=== PATIENT | male | born 1985 | race Caucasian/White ===

== ENCOUNTER 2018-05-28 02:39 | Emergency (ER) | payer OTHER, MEDICAID, SELFPAY ==
[2018-05-28 02:50] VITALS: BP 144/98; PULSE 88; RESP 16; TEMP 36.4; O2SAT 99; BMI 33.5
--- NOTE | 2018-05-28 02:55 | ED_ITS ---
HPI - Headache General Chief Complaint: Headache Stated Complaint: feels pressure when lays down, gets worse Time Seen by Provider: 05/28/18 02:56 Source: patient Mode of arrival: ambulatory Limitations: no limitations History of Present Illness HPI Narrative: The patient has been ill for about 2 days. He has right ear pressure. He has pressure in his head, increasingly lies down. He also does throat discomfort when he lies down. He is having no fever or chills. He has no chronic headache issues. He denies postnasal drainage, or sore throat. He has no dysphagia. He is not coughing, he has no dyspnea. The facial pressure is periorbital. He has no eye complaints such as vision changes or discharge. Related Data Previous Rx's Medication Instructions Recorded amoxicillin 500 mg PO TID #27 cap 05/28/18 Allergies Allergy/AdvReac Type Severity Reaction Status Date / Time ciprofloxacin [From CIPRO] Allergy Mild MUSCLE/JOINT Verified 12/21/17 08:55 PAIN &SWELLING NYQUIL Allergy Mild REDNESS ON Uncoded 10/31/17 12:53 HIS FACE 10/01/12 Review of Systems Review of Systems All systems reviewed & are unremarkable except as noted in HPI and below Constitutional Reports as per HPI, Denies chills, Denies fever(s), Denies lethargy and Denies weakness Eyes Denies change in vision, Denies eye discharge and Denies irritation ENT Ears, Nose, Mouth, and Throat: Reports as per HPI, Denies change in voice, Denies dysphagia, Denies vertigo, Denies dizziness, Reports otalgia, Reports facial pain, Denies nasal discharge, Denies neck pain and Denies sore throat Cardiovascular Denies chest pain, Denies lightheadedness, Denies dyspnea and Denies orthopnea Respiratory Denies cough, Denies dyspnea and Denies wheezing Gastrointestinal Gastrointestinal: Denies abdominal pain and Denies dysphagia Musculoskeletal Denies back pain and Denies neck pain Integumentary/Breasts Denies erythema and Denies rash Neurologic Denies confusion, Denies vertigo, Denies dizziness and Denies weakness Psychiatric Denies anxiety and Denies confusion Allergic/Immunologic Denies wheezing [facility] Medical History No significant medical problems (Acute) Surgical History Status post appendectomy Family History Mother Age: 57 Bipolar affective disorder, current episode mixed, current episode severity unspecified Grandfather Heart disease High cholesterol Cerebrovascular accident (CVA), unspecified mechanism Social History Smoking Status: Never smoker Exam Initial Vital Signs Initial Vital Signs: Vital Signs Temperature 97.6 F 05/28/18 02:50 Pulse Rate 88 05/28/18 02:50 Respiratory Rate 16 05/28/18 02:50 Blood Pressure 144/98 H 05/28/18 02:50 Pulse Oximetry 99 05/28/18 02:50 Const General: cooperative, healthy appearing, comfortable and well developed Nutritional Appearance: well nourished Orientation: alert, awake, oriented x3 and not confused HENMT Head: normocephalic and atraumatic Ears: external ears normal, TM normal on the right and TM normal on the left ( No erythema, retracted, clear fluid behind the TM.) Nose: external nose normal and No nasal discharge Face and sinus: face symmetric and tenderness on the left (ethmoid sinus) Mouth: oral mucosae normal and moist mucous membranes Teeth and gingiva: dentition normal Throat: posterior oropharynx normal Eyes General: appearance normal, both eyes and all related structures Eyelids: eyelids normal Conjunctivae: conjunctivae normal Sclera: sclerae normal Pupils: PERRL EOM: EOM intact bilaterally Neck Neck: normal visual inspection, trachea midline, No lymphadenopathy, No midline deformity and No JVD Lymphatic: No lymphedema Resp Effort & Inspection: normal respiratory effort, able to speak in complete sentences, no respiratory distress and no use of accessory muscles Auscultation: clear to auscultation bilaterally, no rales, no rhonchi and no wheezes Cardio Rate: regular rate Rhythm: regular rhythm Heart Sounds: no click, no gallops, no murmurs and no rubs Pulses: normal peripheral pulses Course Orders Ordered: ED Orders 05/28/18 03:16 EKG-12 Lead Stat Discontinued Medications Amoxicillin ( Trimox 250mg Prepack) 1 bottle MISC SEEINSTR ONE Stop: 05/28/18 03:12 Last Admin: 05/28/18 03:19 Dose: 1 bottle Vital Signs - 8 hr 05/28/18 02:50 Temperature 97.6 F Pulse Rate 88 Respiratory Rate 16 Blood Pressure 144/98 H Pulse Oximetry 99 MDM - Headache MDM Narrative Medical decision making narrative: The patient appears to have a sinus infection. He was started on amoxicillin, Mucinex was recommended prior to discharge. Discharge Plan Departure Patient Disposition: Home Clinical Impression: Acute ethmoidal sinusitis, unspecified, Acute non-recurrent ethmoidal sinusitis Discharge Date/Time: 05/28/18 03:27 Interventions: ED Discharge Assessment Last Done: 05/28/18 03:26 Instructions: DI for Sinusitis Activity Restrictions/Additional Instructions: Take the amoxicillin 3 times daily as prescribed. Mucinex is available over the counter, use the Mucinex as Directed per package instructions. I would recommend steamy showers to help clear her ears and sinuses. Return here if obviously worse. Prescriptions: New amoxicillin 500 mg capsule 500 mg PO TID Qty: 27 RF: 0
--- NOTE | 2018-05-28 03:02 | PC.NURSE ---
pt stated a couple days ago my head filled up with pressure and it gets way worse when I lay down. He does say he has some discomfort around his neck and into his chest, it feels like pressure. He reports no change in vision, balance, cognitive function.
[2018-05-28] MEDS: AMOXICILLIN 250 MG PREPACK 1 BOTTLE MISC (03:19)
== END 2018-05-28 03:27 | disposition home or self-care (01) ==
PROVIDERS: Emergency Provider Emergency Medicine; Family Provider Family Medicine; PCP Family Medicine
DX: J01.20 Acute ethmoidal sinusitis, unspecified (principal)
CPT/HCPCS: 93005; 99282; 99283

== ENCOUNTER 2018-07-03 06:32 | Emergency (ER) | payer OTHER, MEDICAID, SELFPAY ==
[2018-07-03 06:55] VITALS: BP 142/72; PULSE 56; RESP 18; TEMP 36.6; O2SAT 100; BMI 34.4
--- NOTE | 2018-07-03 07:54 | ED_ITS ---
HPI - Abdominal Pain General Chief Complaint: Abdominal Pain Stated Complaint: left side pressure some pain cant lay on side Time Seen by Provider: 07/03/18 07:09 Source: patient Mode of arrival: ambulatory Limitations: no limitations History of Present Illness HPI narrative: Patient is a 33-year-old male who presents with left lower quadrant pain ongoing for the last 3 weeks. He says progressively getting worse he keeps him from sleeping at night. He has regular bowel movements nonbloody passing gas no vomiting diarrhea or fever. He did have an episode of a bloody diarrhea number of years ago he had a colonoscopy nothing was found given had any problems since. Mom states that he was quite a heavy drinker until 2 months ago when he. He is trying to get healthy he has not had a drink for 2 months. However this abdominal discomfort is progressively getting worse. MD complaint: abdominal pain Related Data Previous Rx's Medication Instructions Recorded amoxicillin 500 mg PO TID #27 cap 05/28/18 amoxicillin-pot clavulanate 1 tab PO BID #14 tab 07/03/18 Allergies Allergy/AdvReac Type Severity Reaction Status Date / Time ciprofloxacin [From CIPRO] Allergy Mild MUSCLE/JOINT Verified 12/21/17 08:55 PAIN &SWELLING NYQUIL Allergy Mild REDNESS ON Uncoded 10/31/17 12:53 HIS FACE 10/01/12 Review of Systems Review of Systems All systems reviewed & are unremarkable except as noted in HPI and below Constitutional Denies chills, Denies fever(s), Denies lethargy and Denies weakness Cardiovascular Denies chest pain, Denies irregular heart rhythm, Denies lightheadedness, Denies palpitations and Denies orthopnea Gastrointestinal Gastrointestinal: Denies abdominal pain, Denies change in bowel habits, Denies diarrhea, Denies nausea and Denies vomiting Genitourinary Denies hematuria, Denies flank pain, Denies urinary incontinence and Denies urinary urgency Musculoskeletal Denies back pain, Denies muscle weakness, Denies numbness and Denies tingling Integumentary/Breasts Denies pruritus, Denies erythema, Denies rash and Denies wounds Neurologic Denies numbness, Denies tingling and Denies weakness Endocrine Denies palpitations [facility] Medical History No significant medical problems (Acute) Surgical History Status post appendectomy Family History Mother Age: 57 Bipolar affective disorder, current episode mixed, current episode severity unspecified Grandfather Heart disease High cholesterol Cerebrovascular accident (CVA), unspecified mechanism Social History Smoking Status: Never smoker alcohol intake: former Exam Initial Vital Signs Initial Vital Signs: Vital Signs Temperature 98 F 07/03/18 06:55 Pulse Rate 56 L 07/03/18 06:55 Respiratory Rate 18 07/03/18 06:55 Blood Pressure 142/72 H 07/03/18 06:55 Pulse Oximetry 100 07/03/18 06:55 GENERAL: Well-appearing, well-nourished and in no acute distress. HEENT: Head atraumatic,EOMI, pupils reactive, CARDIOVASCULAR: Regular rate and rhythm without murmurs, rubs or gallops. RESPIRATORY: Breath sounds equal bilaterally, no wheezes rales or rhonchi. ABDOMEN: Soft, nontender. Normoactive bowel sounds all 4 quadrants. No guarding or rebound. EXTREMITIES: Normal range of motion, no clubbing or edema. Neurovascularly intact NEUROLOGICAL: Alert and oriented x4.Normal gait and speech. Cranial nerves II through XII grossly intact. SKIN: Warm, dry, no laceration, no petechiae, no rashes or lesions. Course Orders Ordered: ED Orders 07/03/18 08:08 Complete Blood Count AUTO DIFF Stat Comprehensive Metabolic Panel Stat Lipase Stat 07/03/18 08:28 CT abdomen pelvis w con Stat Vital Signs - 8 hr 07/03/18 08:35 07/03/18 09:34 Pulse Rate 54 L 56 L Respiratory Rate 16 18 Blood Pressure 111/59 L Blood Pressure [Right Arm] 115/66 Pulse Oximetry 99 96 MDM - Abdominal Pain Lab Data Attestation: I reviewed the patient's lab results. Result diagrams: 07/03/18 08:08 07/03/18 08:08 Lab Results 07/03/18 07/03/18 Range/Units 08:08 08:08 WBC 5.0 (4.5-11.0) X10^3/uL RBC 5.03 (4.5-5.9) X10^6/uL Hgb 15.6 (13.5-17.5) g/dL Hct 45.3 (41-53) % MCV 90.1 (80-100) fL MCH 31.0 (26-34) PG MCHC 34.4 (30-36) % RDW 13.0 (11.6-14.8) % Plt Count 181 (150-400) X10^3/uL Neut % (Auto) 51.0 (50-75) % Lymph % (Auto) 33.7 (25-40) % Charlton % (Auto) 10.1 (3-14) % Eos % (Auto) 3.9 (2-4) % Baso % (Auto) 1.3 (0-2) % Neut # (Auto) 2600 L (6337-0877) /uL Sodium 144 (137-145) mmol/L Potassium 4.2 (3.4-5.1) mmol/L Chloride 105 (98-107) mmol/L Carbon Dioxide 27 (22-32) mmol/L BUN 13 (9-20) mg/dL Creatinine 1.00 (0.66-1.25) mg/dL Estimated GFR > 60.0 (>60) mL/min BUN/Creatinine Ratio 13.0 (6-22) Glucose 95 (70-100) mg/dL Calcium 9.7 (8.4-10.2) mg/dL Total Bilirubin 0.6 (0.2-1.3) mg/dL AST 46 (17-59) IU/L ALT 100 H (21-72) IU/L Alkaline Phosphatase 68 (38-126) U/L Total Protein 7.0 (6.3-8.2) g/dL Albumin 4.7 (3.5-5.0) g/dL Globulin 2.3 (1.7-4.1) g/dL Albumin/Globulin Ratio 2.0 (1.0-2.8) Lipase 76 (23-300) U/L Imaging Data CT scan - abdomen: Radiologist's impression: PROCEDURE: CT ABDOMEN PELVIS W CON INDICATIONS: left lower quad pain on gonig 3 weeks getting worse TECHNIQUE: After the administration of intravenous contrast, 5 mm thick sections acquired from the diaphragm to the symphysis. 5 mm coronal and sagittal reformats were acquired. For radiation dose reduction, the following was used: automated exposure control, adjustment of mA and/or kV according to patient size. COMPARISON: [facility], CT, ABDOMEN/PELVIS WITH CONTRAST, 10/01/2012, 11: 38. FINDINGS: Image quality: Excellent. ABDOMEN: Lung bases: Lung bases are clear. Heart size is normal. Solid organs: Liver is normal in size and enhancement. Mild hepatic steatosis is seen. Gallbladder is within normal limits. Biliary system is non dilated. Pancreas enhances normally. Spleen is normal in size and enhancement. No adrenal nodules. Kidneys demonstrate normal size and enhancement, without hydronephrosis. 7 mm left renal cortical cyst is seen. Peritoneum and bowel: There is a small hiatal hernia. No evidence of bowel obstruction. Mild wall thickening involving transverse colon and descending colon is seen with no significant pericolonic fat stranding. Mild sigmoid diverticulosis is seen, no CT evidence of acute diverticulitis. No free fluid or free air. Patient is status post appendectomy. Nodes and vessels: No retroperitoneal or mesenteric adenopathy by size criteria. Aorta and inferior vena cava are normal in size. Miscellaneous: No ventral hernias. PELVIS: Genitourinary: Bladder wall thickness is normal. Miscellaneous: No inguinal hernias or adenopathy. Bones: No suspicious bony lesions. No vertebral body compression fractures. IMPRESSION: 1. Questionable wall thickening involving transverse colon and descending colon , which may be due to under distention. Low-grade infectious inflammatory colitis cannot excluded. Very mild sigmoid diverticulosis with no CT evidence of acute diverticulitis. No free fluid or free air. No bowel obstruction. Small hiatal hernia. 2. Mild hepatic steatosis. Dictated by: Kavon Swift M.D. on 07/03/2018 at 8:44 MDM Narrative Medical decision making narrative: Patient does have some mild low-grade inflammation. Pain seems to be progressively getting worse. At this time I think that it is worth a course of antibiotics. He has had reaction to ciprofloxacin including muscle aches and tendon pain. He will be prescribed Augmentin. He has no point his PCP in July. He may require repeat colonoscopy, or GI consult if pain has not improved. Discharge Plan Departure Patient Disposition: Home Clinical Impression: Abdominal pain Discharge Date/Time: 07/03/18 09:33 Interventions: ED Discharge Assessment Last Done: 07/03/18 09:34 Instructions: DI for Crohn's Disease, DI for Ulcerative Colitis, DI for Colitis Activity Restrictions/Additional Instructions: *You have been diagnosed with colitis *What to do: Try course of antibiotics. If this does not help you may require repeat colonoscopy please discuss this with her PCP in July *Continue to take medications as directed: [facility] [place] Augmentin 875 mg twice a day for 7 days *Follow up with your primary care provider in 2-3 days *Return to ER if you should have fever, worsening pain or any new, worsening or concerning symptoms Prescriptions: New amoxicillin-pot clavulanate 875-125 mg tablet 1 tab PO BID Qty: 14 RF: 0 No Action amoxicillin 500 mg capsule 500 mg PO TID Qty: 27 RF: 0 Referrals: Grady Arora MD [Primary Care Provider] -
[2018-07-03 08:19] LABS: Add Manual Diff / Slide Review NO; Basophils Percent Auto 1.3 % (0-2); Eosinophils Percent Auto 3.9 % (2-4); Hematocrit 45.3 % (41-53); Hemoglobin 15.6 g/dL (13.5-17.5); Lymphocytes Percent Auto 33.7 % (25-40); Mean Corpuscular HGB Conc 34.4 % (30-36); Mean Corpuscular Volume 90.1 fL (80-100); Monocytes Percent Auto 10.1 % (3-14); Neutrophils Absolute Auto 2600 /uL (3000-5900); Platelet Count 181 X10^3/uL (150-400); Red Blood Cell Count 5.03 X10^6/uL (4.5-5.9)
[2018-07-03 08:25] LABS: Alanine Aminotransferase 100 IU/L (21-72); Albumin 4.7 g/dL (3.5-5.0); Alkaline Phosphatase 68 U/L (38-126); Aspartate Aminotransferase 46 IU/L (17-59); Bilirubin Total 0.6 mg/dL (0.2-1.3); Blood Urea Nitrogen 13 mg/dL (9-20); Calcium 9.7 mg/dL (8.4-10.2); Carbon Dioxide 27 mmol/L (22-32); Chloride 105 mmol/L (98-107); Estimated Glomerular Filt Rate > 60.0 mL/min (>60); Globulin 2.3 g/dL (1.7-4.1); Glucose 95 mg/dL (70-100); HEMOLYSIS < 15 (0-50); Lipase 76 U/L (23-300); Potassium 4.2 mmol/L (3.4-5.1); Sodium 144 mmol/L (137-145)
--- NOTE | 2018-07-03 08:28 | DI.CT.S_ITS ---
PROCEDURE: CT ABDOMEN PELVIS W CON INDICATIONS: left lower quad pain on gonig 3 weeks getting worse TECHNIQUE: After the administration of intravenous contrast, 5 mm thick sections acquired from the diaphragm to the symphysis. 5 mm coronal and sagittal reformats were acquired. For radiation dose reduction, the following was used: automated exposure control, adjustment of mA and/or kV according to patient size. COMPARISON: [facility], CT, ABDOMEN/PELVIS WITH CONTRAST, 10/01/2012, 11:38. FINDINGS: Image quality: Excellent. ABDOMEN: Lung bases: Lung bases are clear. Heart size is normal. Solid organs: Liver is normal in size and enhancement. Mild hepatic steatosis is seen. Gallbladder is within normal limits. Biliary system is non dilated. Pancreas enhances normally. Spleen is normal in size and enhancement. No adrenal nodules. Kidneys demonstrate normal size and enhancement, without hydronephrosis. 7 mm left renal cortical cyst is seen. Peritoneum and bowel: There is a small hiatal hernia. No evidence of bowel obstruction. Mild wall thickening involving transverse colon and descending colon is seen with no significant pericolonic fat stranding. Mild sigmoid diverticulosis is seen, no CT evidence of acute diverticulitis. No free fluid or free air. Patient is status post appendectomy. Nodes and vessels: No retroperitoneal or mesenteric adenopathy by size criteria. Aorta and inferior vena cava are normal in size. Miscellaneous: No ventral hernias. PELVIS: Genitourinary: Bladder wall thickness is normal. Miscellaneous: No inguinal hernias or adenopathy. Bones: No suspicious bony lesions. No vertebral body compression fractures. IMPRESSION: 1. Questionable wall thickening involving transverse colon and descending colon, which may be due to under distention. Low-grade infectious inflammatory colitis cannot excluded. Very mild sigmoid diverticulosis with no CT evidence of acute diverticulitis. No free fluid or free air. No bowel obstruction. Small hiatal hernia. 2. Mild hepatic steatosis. Dictated by: Kavon Siwft M.D. on 07/03/2018 at 8:44 Approved by: Kavon Swift M.D. on 07/03/2018 at 8:48
[2018-07-03 08:35] VITALS: BP 115/66; PULSE 54; RESP 16; O2SAT 99
[2018-07-03 09:34] VITALS: BP 111/59; PULSE 56; RESP 18; O2SAT 96
== END 2018-07-03 09:33 | disposition home or self-care (01) ==
PROVIDERS: Emergency Provider Emergency Medicine; Family Provider Family Medicine; PCP Family Medicine
DX: R10.9 Unspecified abdominal pain (principal)
CPT/HCPCS: 36591; 74177; 80053; 83690; 85025; 99283; 99285; Q9967

== ENCOUNTER → 2018-07-19 11:10 | Outpatient (CLI) | payer OTHER, MEDICAID, SELFPAY ==
[2018-07-19 12:37] LABS: Add Manual Diff / Slide Review NO; Basophils Percent Auto 0.3 % (0-2); Eosinophils Percent Auto 3.4 % (2-4); Hemoglobin 15.5 g/dL (13.5-17.5); Lymphocytes Percent Auto 25.9 % (25-40); Mean Corpuscular HGB Conc 34.5 % (30-36); Mean Corpuscular Volume 89.7 fL (80-100); Monocytes Percent Auto 8.6 % (3-14); Neutrophils Absolute Auto 3500 /uL (1500-7000); Neutrophils Percent Auto 61.8 % (50-75); Platelet Count 216 X10^3/uL (150-400); Red Blood Cell Count 5.02 X10^6/uL (4.5-5.9); White Blood Cell Count 5.7 X10^3/uL (4.5-11.0)
[2018-07-19 13:16] LABS: Alanine Aminotransferase 74 IU/L (21-72); Albumin 4.6 g/dL (3.5-5.0); Alkaline Phosphatase 68 U/L (38-126); Aspartate Aminotransferase 46 IU/L (17-59); Bilirubin Total 0.9 mg/dL (0.2-1.3); Blood Urea Nitrogen 12 mg/dL (9-20); Calcium 10.2 mg/dL (8.4-10.2); Carbon Dioxide 27 mmol/L (22-32); Chloride 103 mmol/L (98-107); Cholesterol 208 mg/dL (140-199); Estimated Glomerular Filt Rate > 60.0 mL/min (>60); Globulin 2.3 g/dL (1.7-4.1); Glucose 89 mg/dL (70-100); HDL Cholesterol 35 mg/dL (40-60); HEMOLYSIS < 15 (0-50); LDL Cholesterol Calculated 135 mg/dL (<100); Sodium 143 mmol/L (137-145); Total Protein 6.9 g/dL (6.3-8.2); Triglycerides 190 mg/dL (35-150)
[2018-07-19 13:18] LABS: Potassium 5.4 mmol/L (3.4-5.1)
== END ==
PROVIDERS: PCP Family Medicine; Visit Provider Family Medicine
DX: Z13.0 Encounter for screening for diseases of the blood and blood-forming organs and certain disorders involving the immune mechanism (principal); Z13.220 Encounter for screening for lipoid disorders; Z13.29 Encounter for screening for other suspected endocrine disorder
CPT/HCPCS: 36415; 80053; 80061; 85025

== ENCOUNTER → 2018-07-30 10:41 | Outpatient (CLI) | payer OTHER, MEDICAID, SELFPAY ==
[2018-07-30 12:40] LABS: Prostate Specific Antigen 0.582 ng/mL (0.10-4.00); Thyroid Stimulating Hormone 0.93 uIU/mL (0.47-4.68)
== END ==
PROVIDERS: PCP Family Medicine; Visit Provider Family Medicine
DX: N41.9 Inflammatory disease of prostate, unspecified (principal); Z83.49 Family history of other endocrine, nutritional and metabolic diseases
CPT/HCPCS: 36415; 84153; 84443

== ENCOUNTER → 2018-08-16 07:14 | Outpatient (CLI) | payer OTHER, MEDICAID, SELFPAY ==
--- NOTE | 2018-08-16 07:16 | DI.US.S_ITS ---
PROCEDURE: US RENAL COMPLETE INDICATIONS: INCREASED URINARY FREQUENCY TECHNIQUE: Real-time scanning was performed of the kidneys and bladder, with image documentation. COMPARISON: [facility], CT, CT ABDOMEN PELVIS W CON, 07/03/2018, 8:10. FINDINGS: Kidneys: Kidneys are normal in size. Right kidney measures 10.1 cm long; left kidney measures 10.6 cm long. Right renal cortical thickness is 1.7 cm; left renal cortical thickness is 1.4 cm. Renal cortical echotexture is normal. No hydronephrosis or nephrolithiasis. No suspicious solid mass lesions. Bladder: Pre-void bladder volume is 63 mL. Post-void residual is 0 mL. Pre-void images demonstrate no intraluminal masses or stones. On pre-void images, neither ureteral jets are noted with color Doppler interrogation. (Of note, ureteral jets may not be detectable in up to 25% of cases due to insufficient differences in specific gravity between ureteral and bladder urine). Miscellaneous: No free pelvic fluid. IMPRESSION: Normal sonographic appearance of the kidneys bilaterally. Dictated by: Cb BALL Interpreted: Eleazar Montalvo MD on 08/16/2018 at 11:17 Approved by: Eleazar Montalvo M.D. on 08/16/2018 at 11:57
== END ==
PROVIDERS: Family Provider Family Medicine; PCP Family Medicine; Visit Provider Family Medicine
DX: R35.0 Frequency of micturition (principal)
CPT/HCPCS: 76770

== ENCOUNTER → 2018-10-02 13:56 | Outpatient (CLI) | payer OTHER, MEDICAID, SELFPAY | PROVIDERS: Family Provider Family Medicine; PCP Family Medicine; Visit Provider Physician Assistant | DX: J02.9 Acute pharyngitis, unspecified (principal) | CPT/HCPCS: 87070; 87077; 87147 ==

== ENCOUNTER → 2018-11-12 08:50 | Outpatient (CLI) | payer OTHER, MEDICAID, SELFPAY ==
[2018-11-12 12:04] LABS: Urine N gonorrhoeae NOT DETECTED
[2018-11-12 12:16] LABS: Urine Chlamydia NOT DETECTED
[2018-11-13 22:49] LABS: RPR Screen Nonreactive (Nonreactive)
[2018-11-14 12:49] LABS: HSV 1 IgM Screen Negative (Negative); HSV 2 IgM Screen Negative (Negative)
[2018-11-14 16:03] LABS: Hepatitis A Antibody IgM NONREACTIVE (NONREACTIVE); Hepatitis Acute Panel Interp 0.01; Hepatitis B Core Antibody IgM NONREACTIVE (NONREACTIVE); Hepatitis B Surface Antigen NONREACTIVE (NONREACTIVE); Hepatitis C Antibody NONREACTIVE
[2018-11-14 16:36] LABS: HIV Ag/Ab, 4th Gen Nonreactive (Nonreactive)
== END ==
PROVIDERS: PCP Family Medicine; Visit Provider Registered Nurse
DX: Z11.3 Encounter for screening for infections with a predominantly sexual mode of transmission (principal)
CPT/HCPCS: 36415; 80074; 86592; 86694; 86703; 87491; 87591

== ENCOUNTER → 2019-05-10 09:03 | Outpatient (CLI) | payer OTHER, MEDICAID, SELFPAY ==
--- NOTE | 2019-05-10 09:07 | DI.RAD.S_ITS ---
PROCEDURE: XR FOOT RT MIN 3V INDICATIONS: R foot/5th metatarsal pain with weight TECHNIQUE: 3 views of the foot were acquired. COMPARISON: None. FINDINGS: Bones: No fractures or dislocations. No suspicious bony lesions. Soft tissues: No tibiotalar joint effusion. Achilles tendon appears normal. IMPRESSION: No acute osseous abnormality. Dictated by: Abdullahi Morris M.D. on 05/10/2019 at 9:36 Approved by: Abdullahi Morris M.D. on 05/10/2019 at 9:37
== END ==
PROVIDERS: PCP Family Medicine; Visit Provider Family Medicine
DX: M79.671 Pain in right foot (principal)
CPT/HCPCS: 73630

== ENCOUNTER 2019-05-12 00:59 | Emergency (ER) | payer OTHER, MEDICAID, SELFPAY ==
[2019-05-12 01:09] VITALS: BP 145/97; PULSE 118; RESP 20; TEMP 36.5; O2SAT 95; BMI 31.1
--- NOTE | 2019-05-12 01:12 | DI.RAD.S_ITS ---
PROCEDURE: XR CHEST 1V INDICATIONS: confusion, overdose responded to narcan. TECHNIQUE: One view of the chest was acquired. COMPARISON: [facility], , CHEST 1 VIEW, 10/07/2016, 13:18. FINDINGS: Surgical changes and devices: None. Lungs and pleura: Lungs are clear. No pleural effusions or pneumothorax. Mediastinum: Mediastinal contours appear normal. Heart size is normal. Bones and chest wall: No suspicious bony lesions. Overlying soft tissues appear unremarkable. IMPRESSION: No acute disease. Dictated by: Luis Longoria M.D. on 05/12/2019 at 8:04 Approved by: Luis Longoria M.D. on 05/12/2019 at 8:05
--- NOTE | 2019-05-12 01:12 | DI.CT.S_ITS ---
PROCEDURE: CT HEAD/BRAIN WO CON INDICATIONS: confusion, overdose responded to narcan. TECHNIQUE: Noncontrast 4.5 mm thick angled axial sections acquired from the foramen magnum to the vertex, with coronal and sagittal reformats. For radiation dose reduction, the following was used: automated exposure control, adjustment of mA and/or kV according to patient size. COMPARISON: None. FINDINGS: Image quality: Excellent. CSF spaces: Basal cisterns are patent. No extra-axial fluid collections. Ventricles are normal in size and shape. Brain: No midline shift. No intracranial masses or hemorrhage. Morales-white matter interface is normal. Skull and face: Calvarium and visualized facial bones are intact, without suspicious lesions. Sinuses: Visualized sinuses and mastoids are clear. IMPRESSION: CT head without acute intracranial abnormalities. No significant discrepancy with the metal sash setter radiology preliminary report. Dictated by: Luis Longoria M.D. on 05/12/2019 at 7:05 Approved by: Luis Longoria M.D. on 05/12/2019 at 7:07
--- NOTE | 2019-05-12 01:13 | ED_ITS ---
HPI - Overdose General Chief Complaint: Toxicology Problem Stated Complaint: CPR in prog, narcan given Time Seen by Provider: 05/12/19 01:11 Source: patient, EMS and old records reviewed Mode of arrival: EMS Limitations: no limitations History of Present Illness HPI Narrative: This is a 33-year-old male who comes to the emergency department with complaint of overdose. Patient states he does not recall anything about the events. EMS was contacted for an unresponsive patient. When they arrived patient was breathing but minimally, CPR had been started by his significant other although he did have a pulse. Patient received Narcan 2 mg IM and shortly return to normal mentation although he himself does not recall taking any drugs recently, denies any narcotic, prescription or IV drug use. He states he drinks alcohol but is unsure if he had any alcohol recently. Patient states he does take some kind of medication for mental health but cannot recall the name. He denies any surgery. He denies any symptoms currently other than ringing in his ears and states he feels 'fuzzy'. He denies any ingestion that he is aware of but he also states he does not recollect events from before this earlier today. He denies any other symptoms currently. EMS states that they did note a bottle of clonazepam close by but it was not open and they do not know belongs to the patient or another individual. They were contacted by patient's girlfriend. They did not appreciate any other paraphernalia or other medications near by when they were in the room. Patient was on the floor. UDS was postive for amphetamines which could be 2nd patient's Adderall and etoh. Related Data Home Medications Medication Instructions Recorded Confirmed multivitamin 1 tab PO DAILY 10/02/18 01/07/19 Previous Rx's Medication Instructions Recorded paroxetine HCl 20 mg tablet 20 mg PO DAILY #90 tab 07/30/18 benzonatate 200 mg capsule 200 mg PO TID PRN #20 cap 12/09/18 clotrimazole 1 % topical cream 1 applictn TOP BID 56 Days #30 gram 12/25/18 clobetasol 0.05 % topical ointment 1 applictn TOP BID #30 gram 01/07/19 dextroamphetamine-amphetamine 20 1 tab PO BID #60 tab 05/07/19 mg tablet Allergies Allergy/AdvReac Type Severity Reaction Status Date / Time ciprofloxacin [From CIPRO] Allergy Mild MUSCLE/JOINT Verified 05/10/19 08:44 PAIN &SWELLING Review of Systems Review of Systems ROS Unobtainable: All systems reviewed & are unremarkable except as noted in HPI and below Patient History Medical History Anxiety (Chronic) Chicken pox (Resolved ~1991) Depression (Chronic ~1997) No significant medical problems (Acute) Surgical History Anesthesia (Resolved) Status post appendectomy (~2011) Family History Mother Age: 58 Bipolar affective disorder, current episode mixed, current episode severity unspecified Grandfather Heart disease High cholesterol Cerebrovascular accident (CVA), unspecified mechanism Grandmother No problems noted. Social History (Updated 07/03/18 @ 07:54 by Yareli Brasher DO) Smoking Status: Never smoker alcohol intake: former substance use type: does not use Family History Mother Age: 58 Bipolar affective disorder, current episode mixed, current episode severity unspecified Grandfather Heart disease High cholesterol Cerebrovascular accident (CVA), unspecified mechanism Grandmother No problems noted. Social History Smoking Status: Never smoker alcohol intake: former substance use type: does not use alcohol intake frequency: a few times a week Alcohol type: beer Substance Use Type: marijuana Exam Narrative Exam Narrative: GEN: well nourished, well appearing male, alert and oriented x 2, patient appears to be in mild distress. HEENT: Atraumatic, pupils are equal round reactive to light, extraocular movements are intact, nares are clear, TMs are clear with no fluid, there is no conjunctival pallor. Throat is clear without any exudates, erythema, tonsillar enlargement or uvular deviation HEART: Regular rate and rhythm without murmur, clicks, rubs. Pulses are equal in upper and lower extremities LUNGS:Lungs clear to auscultation, no wheezes, rales, crackles, chest moves symmetrically ABD:bowel sounds normal, soft, non-tender, no guarding, rebound, rigidity, no masses noted, no hepatosplenomegaly :No CVA tenderness MSCL: Non-tender, no muscle atrophy, muscles strength 5/5 upper and lower extremities, full range of motion NEURO:CN 2-12 intact, sensation normal. SKIN: Rashes, petechiae or other skin changes appreciated. Initial Vital Signs Initial Vital Signs: Vital Signs Temperature 97.7 F 05/12/19 01:09 Pulse Rate 118 H 05/12/19 01:09 Respiratory Rate 20 05/12/19 01:09 Blood Pressure 145/97 H 05/12/19 01:09 Pulse Oximetry 95 05/12/19 01:09 Course Orders Ordered: ED Orders 05/12/19 00:50 Acetaminophen Stat Complete Blood Count AUTO DIFF Stat Comprehensive Metabolic Panel Stat Ethanol (ETOH) Stat Hepatic (Liver) Panel Stat Lipase Stat Osmolality, Serum Stat Partial Thromboplastin Time Stat Prothrombin Time INR Stat Salicylate Stat Troponin & CK Cardiac Panel Stat 05/12/19 01:12 CT head/brain wo con Stat XR chest 1V Stat 05/12/19 01:24 Lactate (Lactic Acid) Stat 05/12/19 02:01 Urine Drug Screen, Rapid Stat 05/12/19 02:38 EKG-12 Lead Stat Discontinued Medications Sodium Chloride (Normal Saline 0.9%) 1,000 mls @ 1,000 mls/hr IV BOLUS ONE Stop: 05/12/19 02:10 Last Admin: 05/12/19 02:53 Dose: 1,000 mls/hr Documented by: YORDY Vital Signs Vital signs: Vital Signs - 8 hr 05/12/19 01:09 05/12/19 02:23 05/12/19 03:00 Temperature 97.7 F Pulse Rate 118 H 114 H 105 H Respiratory Rate 20 15 Blood Pressure 145/97 H Blood Pressure [Left Arm] 131/83 136/85 Pulse Oximetry 95 94 94 05/12/19 03:30 05/12/19 04:00 Temperature Pulse Rate 88 82 Respiratory Rate Blood Pressure Blood Pressure [Left Arm] 122/75 127/76 Pulse Oximetry 93 92 MDM - Overdose Lab Data Attestation: I reviewed the patient's lab results. Result diagrams: 05/12/19 00:50 05/12/19 00:50 Labs: Lab Results 05/12/19 05/12/19 05/12/19 Range/Units 00:50 00:50 00:50 WBC 13.0 H (4.5-11.0) X10^3/uL RBC 4.55 (4.5-5.9) X10^6/uL Hgb 14.7 (13.5-17.5) g/dL Hct 44.3 (41-53) % MCV 97.3 (80-100) fL MCH 32.3 (26-34) PG MCHC 33.2 (30-36) % RDW 13.3 (11.6-14.8) % Plt Count 306 (150-400) X10^3/uL Neut % (Auto) 38.6 L (50-75) % Lymph % (Auto) 50.3 H (25-40) % [place] % (Auto) 9.0 (3-14) % Eos % (Auto) 1.6 L (2-4) % Baso % (Auto) 0.5 (0-2) % Neut # (Auto) 5000 (3010-9621) /uL Lymph # (Auto) 6500 H (1147-3477) /uL [place] # (Auto) 1200 H (0-900) /uL Eos # (Auto) 200 (0-450) /uL Baso # (Auto) 100 (0-100) /uL PT 10.7 (10.1-12.7) SECONDS INR 0.9 (0.9-1.3) APTT 28 (26.4-36.2) SECONDS Sodium 142 (137-145) mmol/L Potassium 3.5 (3.4-5.1) mmol/L Chloride 102 (98-107) mmol/L Carbon Dioxide 21 L (22-32) mmol/L BUN 10 (9-20) mg/dL Creatinine 1.10 (0.66-1.25) mg/dL Estimated GFR > 60.0 (>60) mL/min BUN/Creatinine Ratio 9.1 (6-22) Glucose 335 H (70-100) mg/dL Lactate (0.7-2.1) mmol/L Calcium 9.1 (8.4-10.2) mg/dL Total Bilirubin 0.4 (0.2-1.3) mg/dL Conjugated Bilirubin 0.0 (0.0-0.3) md/dL Unconjugated Bilirubin 0.2 (0.0-1.1) mg/dL AST 62 H (17-59) IU/L ALT 64 (21-72) IU/L Alkaline Phosphatase 73 (38-126) U/L Total Creatine Kinase (55-170) U/L CK-MB (CK-2) (<2.37) ng/mL CK-MB (CK-2) Rel Index (1.5-5.0) % Troponin I (0.01-0.034) ng/mL Total Protein 7.6 (6.3-8.2) g/dL Albumin 5.0 (3.5-5.0) g/dL Globulin 2.6 (1.7-4.1) g/dL Albumin/Globulin Ratio 1.9 (1.0-2.8) Lipase 204 (23-300) U/L Salicylates < 1.0 (<20) mg/dL U Morph 300 ng/mL cutoff (Negative) Ur Oxycodone Screen (Negative) Urine Methadone Screen (Negative) Acetaminophen < 10 L (10-30) ug/mL Ur Barbiturates Screen (Negative) U Tricyclic Antidepress (Negative) Ur Phencyclidine Scrn (Negative) Ur Amphetamines Screen (Negative) U Methamphetamines Scrn (Negative) Ur MDMA Scrn (Ecstasy) (Negative) U Benzodiazepines Scrn (Negative) Urine Cocaine Screen (Negative) U Marijuana (THC) Screen (Negative) Ethyl Alcohol 144 H ( - 10) mg/dL 05/12/19 05/12/19 05/12/19 Range/Units 00:50 01:24 02:01 WBC (4.5-11.0) X10^3/uL RBC (4.5-5.9) X10^6/uL Hgb (13.5-17.5) g/dL Hct (41-53) % MCV (80-100) fL MCH (26-34) PG MCHC (30-36) % RDW (11.6-14.8) % Plt Count (150-400) X10^3/uL Neut % (Auto) (50-75) % Lymph % (Auto) (25-40) % [place] % (Auto) (3-14) % Eos % (Auto) (2-4) % Baso % (Auto) (0-2) % Neut # (Auto) (5766-1986) /uL Lymph # (Auto) (2176-1166) /uL [place] # (Auto) (0-900) /uL Eos # (Auto) (0-450) /uL Baso # (Auto) (0-100) /uL PT (10.1-12.7) SECONDS INR (0.9-1.3) APTT (26.4-36.2) SECONDS Sodium (137-145) mmol/L Potassium (3.4-5.1) mmol/L Chloride (98-107) mmol/L Carbon Dioxide (22-32) mmol/L BUN (9-20) mg/dL Creatinine (0.66-1.25) mg/dL Estimated GFR (>60) mL/min BUN/Creatinine Ratio (6-22) Glucose (70-100) mg/dL Lactate 3.5 H (0.7-2.1) mmol/L Calcium (8.4-10.2) mg/dL Total Bilirubin (0.2-1.3) mg/dL Conjugated Bilirubin (0.0-0.3) md/dL Unconjugated Bilirubin (0.0-1.1) mg/dL AST (17-59) IU/L ALT (21-72) IU/L Alkaline Phosphatase (38-126) U/L Total Creatine Kinase 249 H (55-170) U/L CK-MB (CK-2) 2.33 (<2.37) ng/mL CK-MB (CK-2) Rel Index 0.9 L (1.5-5.0) % Troponin I < 0.012 (0.01-0.034) ng/mL Total Protein (6.3-8.2) g/dL Albumin (3.5-5.0) g/dL Globulin (1.7-4.1) g/dL Albumin/Globulin Ratio (1.0-2.8) Lipase (23-300) U/L Salicylates (<20) mg/dL U Morph 300 ng/mL cutoff Negative (Negative) Ur Oxycodone Screen Negative (Negative) Urine Methadone Screen Negative (Negative) Acetaminophen (10-30) ug/mL Ur Barbiturates Screen Negative (Negative) U Tricyclic Antidepress Negative (Negative) Ur Phencyclidine Scrn Negative (Negative) Ur Amphetamines Screen Positive H (Negative) U Methamphetamines Scrn Negative (Negative) Ur MDMA Scrn (Ecstasy) Negative (Negative) U Benzodiazepines Scrn Negative (Negative) Urine Cocaine Screen Negative (Negative) U Marijuana (THC) Screen Negative (Negative) Ethyl Alcohol ( - 10) mg/dL 05/12/19 Range/Units 03:38 WBC (4.5-11.0) X10^3/uL RBC (4.5-5.9) X10^6/uL Hgb (13.5-17.5) g/dL Hct (41-53) % MCV (80-100) fL MCH (26-34) PG MCHC (30-36) % RDW (11.6-14.8) % Plt Count (150-400) X10^3/uL Neut % (Auto) (50-75) % Lymph % (Auto) (25-40) % [place] % (Auto) (3-14) % Eos % (Auto) (2-4) % Baso % (Auto) (0-2) % Neut # (Auto) (9865-8299) /uL Lymph # (Auto) (9197-2503) /uL [place] # (Auto) (0-900) /uL Eos # (Auto) (0-450) /uL Baso # (Auto) (0-100) /uL PT (10.1-12.7) SECONDS INR (0.9-1.3) APTT (26.4-36.2) SECONDS Sodium (137-145) mmol/L Potassium (3.4-5.1) mmol/L Chloride (98-107) mmol/L Carbon Dioxide (22-32) mmol/L BUN (9-20) mg/dL Creatinine (0.66-1.25) mg/dL Estimated GFR (>60) mL/min BUN/Creatinine Ratio (6-22) Glucose (70-100) mg/dL Lactate 1.5 (0.7-2.1) mmol/L Calcium (8.4-10.2) mg/dL Total Bilirubin (0.2-1.3) mg/dL Conjugated Bilirubin (0.0-0.3) md/dL Unconjugated Bilirubin (0.0-1.1) mg/dL AST (17-59) IU/L ALT (21-72) IU/L Alkaline Phosphatase (38-126) U/L Total Creatine Kinase (55-170) U/L CK-MB (CK-2) (<2.37) ng/mL CK-MB (CK-2) Rel Index (1.5-5.0) % Troponin I (0.01-0.034) ng/mL Total Protein (6.3-8.2) g/dL Albumin (3.5-5.0) g/dL Globulin (1.7-4.1) g/dL Albumin/Globulin Ratio (1.0-2.8) Lipase (23-300) U/L Salicylates (<20) mg/dL U Morph 300 ng/mL cutoff (Negative) Ur Oxycodone Screen (Negative) Urine Methadone Screen (Negative) Acetaminophen (10-30) ug/mL Ur Barbiturates Screen (Negative) U Tricyclic Antidepress (Negative) Ur Phencyclidine Scrn (Negative) Ur Amphetamines Screen (Negative) U Methamphetamines Scrn (Negative) Ur MDMA Scrn (Ecstasy) (Negative) U Benzodiazepines Scrn (Negative) Urine Cocaine Screen (Negative) U Marijuana (THC) Screen (Negative) Ethyl Alcohol ( - 10) mg/dL Point of Care Testing Glucose POC [address] scan - head: Radiologist's impression: Unremarkable CT of the head. Chest x-ray: My impression: nap ECG Data Attestation: I personally reviewed and interpreted this ECG as follows: Interpretation: Sinus tachycardia with a rate of 114, NV 168 QRS of 100 and QTC of 402. No ST elevation or depression appreciated. RSR in V1. Patient has prior from 05/28/2018 which appears similar. [facility] Narrative Medical decision making narrative: Patient has anion gap of 19, glucose 300. Patient denies any diabetes, he has not had prior elevated sugars on prior blood work noted. Patient has anion gap of 19. Bicarb is 21, white count is elevated at 13. Coags are normal, AST is up at 62 but ALT is normal. Lipase 204. Salicylates and Tylenol are both negative, ETOH is 144. Patient's UDS is positive for amphetamines. Glucose is elevated but improved with 1L normal saline to normal range. Patient's mentation has improved while here. He is feeling much better and does recall having alcohol earlier today. States he is taking paroxetine and Adderall. He denies any intent to ingest for self harm. Discussed that taking depressants such as alcohol with Adderall could potentially have a combination affect. Patient is feeling much better he is not feeling fuzzy anymore. He is able to ambulate. Patient's rate also improved into the 80s with 2nd L of fluids. Discharge Plan Departure Patient Disposition: Home Clinical Impression: Overdose, Alcohol intoxication Instructions: DI for Drug Overdose in Adults Activity Restrictions/Additional Instructions: Follow up with primary care in the next 2-3 days for recheck. Do not drink alcohol and take adderal, amphetamines or other medications that can alter you're mental status. Return to the emergency department at any time for new changes to mental status, new confusion, passing out, new chest pain, shortness of breath, persistent vomiting, black or bloody stools, new weakness numbness or other new or concerning symptoms. Prescriptions: No Action multivitamin tablet 1 tab PO DAILY RF: 0 clotrimazole 1 % cream 1 applictn TOP BID 56 Days Qty: 30 RF: 2 dextroamphetamine-amphetamine [Adderall] 20 mg tablet 1 tab PO BID Qty: 60 RF: 0 paroxetine HCl 20 mg tablet 20 mg PO DAILY Qty: 90 RF: 3 clobetasol 0.05 % ointment 1 applictn TOP BID Qty: 30 RF: 5 benzonatate 200 mg capsule 200 mg PO TID PRN (Reason: cough) Qty: 20 RF: 0 Referrals: Grady Arora MD [Primary Care Provider] -
[2019-05-12 01:17] LABS: Add Manual Diff / Slide Review NO; Basophils Absolute Auto 100 /uL (0-100); Basophils Percent Auto 0.5 % (0-2); Eosinophils Absolute Auto 200 /uL (0-450); Eosinophils Percent Auto 1.6 % (2-4); Hematocrit 44.3 % (41-53); Hemoglobin 14.7 g/dL (13.5-17.5); Lymphocytes Absolute Auto 6500 /uL (1100-4500); Lymphocytes Percent Auto 50.3 % (25-40); Mean Corpuscular HGB Conc 33.2 % (30-36); Mean Corpuscular Hemoglobin 32.3 PG (26-34); Mean Corpuscular Volume 97.3 fL (80-100); Monocytes Absolute Auto 1200 /uL (0-900); Neutrophils Absolute Auto 5000 /uL (1500-7000); Neutrophils Percent Auto 38.6 % (50-75); Platelet Count 306 X10^3/uL (150-400); Red Blood Cell Count 4.55 X10^6/uL (4.5-5.9); Red Cell Distribution Width 13.3 % (11.6-14.8)
[2019-05-12 01:20] LABS: INR 0.9 (0.9-1.3); Prothrombin Time 10.7 SECONDS (10.1-12.7)
[2019-05-12 01:22] LABS: PTT Partial Thromboplastin Tim 28 SECONDS (26.4-36.2)
[2019-05-12 01:24] LABS: Acetaminophen < 10 ug/mL (10-30); Alanine Aminotransferase 64 IU/L (21-72); Albumin Globulin Ratio 1.9 (1.0-2.8); Alkaline Phosphatase 73 U/L (38-126); Aspartate Aminotransferase 62 IU/L (17-59); BUN Creatinine Ratio 9.1 (6-22); Bilirubin Total 0.4 mg/dL (0.2-1.3); Bilirubin Unconjugated 0.2 mg/dL (0.0-1.1); Blood Urea Nitrogen 10 mg/dL (9-20); Calcium 9.1 mg/dL (8.4-10.2); Carbon Dioxide 21 mmol/L (22-32); Chloride 102 mmol/L (98-107); Estimated Glomerular Filt Rate > 60.0 mL/min (>60); Ethanol (ETOH) 144 mg/dL; Globulin 2.6 g/dL (1.7-4.1); Glucose 335 mg/dL (70-100); HEMOLYSIS 18 (0-50); Lipase 204 U/L (23-300); Potassium 3.5 mmol/L (3.4-5.1); Salicylate < 1.0 mg/dL (<20); Sodium 142 mmol/L (137-145); Total Protein 7.6 g/dL (6.3-8.2)
--- NOTE | 2019-05-12 01:27 | PC.NURSE ---
Pt denies SI
[2019-05-12 01:42] LABS: Lactate (Lactic Acid) 3.5 mmol/L (0.7-2.1)
[2019-05-12 02:10] LABS: UR Morphine/Opiate cutoff 300 Negative (Negative); Ur Creatinine Normal (Normal); Ur Specific Gravity Normal (Normal); Urine Cocaine Negative (Negative); Urine Tetrahydrocannabinol Negative (Negative); Urine pH Normal (Normal)
--- NOTE | 2019-05-12 02:11 | PC.NURSE ---
Pt remains confused about events of the evening of this evening. He states he does not remember the date or the season. He does know he is in the hospital in [place]. The medics reported his girlfriend is the one who called 911. The patient stated he does not have a girlfriend. The patient is requesting a telephone however he will not state who he wants to call. When asked if he knows the phone number he says yes but will not give staff the number to call. Provider aware.
[2019-05-12 02:14] LABS: Urine Amphetamines Positive (Negative); Urine Barbiturates Negative (Negative); Urine Benzodiazepines Negative (Negative); Urine MDMA Negative (Negative); Urine Methadone Negative (Negative); Urine Methamphetamines Negative (Negative); Urine Oxycodone Negative (Negative); Urine Phencyclidine Negative (Negative); Urine Tricyclic Antidepressant Negative (Negative)
[2019-05-12 02:23] VITALS: BP 131/83; PULSE 114; O2SAT 94
--- NOTE | 2019-05-12 02:24 | PC.NURSE ---
pt friend chet called to check on pt. Pt requested we transfer the call into his room. Pt is now talking on phone with chet.
--- NOTE | 2019-05-12 02:40 | PC.NURSE ---
one liter NS from EMS infused. provider notified, order for accucheck recieved, G[employer]ESSING [employer] OPERATOR at bedside doing accucheck
[2019-05-12] MEDS: SODIUM CHLORIDE 0.9% 1,000 ML 1000 ML IV (02:53)
[2019-05-12 03:00] VITALS: BP 136/85; PULSE 105; RESP 15; O2SAT 94
[2019-05-12 03:20] LABS: Creatine Kinase 249 U/L (55-170)
[2019-05-12 03:30] VITALS: BP 122/75; PULSE 88; O2SAT 93
[2019-05-12 03:30] LABS: Reflexed Lactate in 2 Hours Y
[2019-05-12 03:32] LABS: Troponin I < 0.012 ng/mL (0.01-0.034)
[2019-05-12 03:35] LABS: CKMB % Relative Index 0.9 % (1.5-5.0); Creatine Kinase MB 2.33 ng/mL (<2.37)
[2019-05-12 03:55] LABS: Lactate 2HR (Lactic Acid Rflx) 1.5 mmol/L (0.7-2.1)
[2019-05-12 04:00] VITALS: BP 127/76; PULSE 82; O2SAT 92
[2019-05-12 05:33] VITALS: BP 121/81; PULSE 82; RESP 18; O2SAT 99
[2019-05-15 17:10] LABS: Osmolality, Serum 341 mosm/kg (260-310)
== END 2019-05-12 05:34 | disposition home or self-care (01) ==
PROVIDERS: Emergency Provider Emergency Medicine; PCP Family Medicine
DX: T50.901A Poisoning by unspecified drugs, medicaments and biological substances, accidental (unintentional), initial encounter (principal); F10.929 Alcohol use, unspecified with intoxication, unspecified; R07.9 Chest pain, unspecified
CPT/HCPCS: 36415; 70450; 71045; 80053; 80076; 80305; 80320; 80329; 82550; 82553; 82962; 83605; 83690; 83930; 84484; 85025; 85610; 85730; 93005; 96360; 96361; 99284; 99285; G0480

== ENCOUNTER 2019-07-13 21:42 | Emergency (ER) | payer OTHER, MEDICAID, SELFPAY ==
[2019-07-13 21:45] VITALS: BP 140/80; PULSE 60; RESP 20; TEMP 36.5; O2SAT 97; BMI 31.4
--- NOTE | 2019-07-13 21:51 | PC.NURSE ---
pt reports he took a tramadol and flexeril 1hr ACTING SECTION CHIEF without relief
--- NOTE | 2019-07-13 21:52 | ED.BACK ---
HPI - Back Pain/Injury General Chief Complaint: Back Pain/Injury Stated Complaint: left lwr back and leg cramping Time Seen by Provider: 07/13/19 21:51 Source: patient Mode of arrival: Ambulatory Limitations: no limitations History of Present Illness HPI Narrative: 34-year-old male here for evaluation of left-sided lower back pain radiating around to the front of his left leg. No specific injury. Has an anything like this in the past. 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 He took a friend's Flexeril and tramadol prior to arrival. No urinary symptoms. No bowel sounds. No fevers. Related Data Home Medications Medication Instructions Recorded Confirmed multivitamin 1 tab PO DAILY 10/02/18 06/15/19 Previous Rx's Medication Instructions Recorded paroxetine HCl 20 mg tablet 20 mg PO DAILY #90 tab 07/30/18 benzonatate 200 mg capsule 200 mg PO TID PRN #20 cap 12/09/18 clobetasol 0.05 % topical ointment 1 applictn TOP BID #30 gram 01/07/19 dextroamphetamine-amphetamine 20 1 tab PO BID #60 tab 07/03/19 mg tablet cyclobenzaprine 10 mg PO TID PRN #7 tab 07/13/19 Allergies Allergy/AdvReac Type Severity Reaction Status Date / Time ciprofloxacin [From CIPRO] Allergy Mild MUSCLE/JOINT Verified 06/15/19 12:28 PAIN &SWELLING Review of Systems Constitutional Constitutional: Denies fever(s) Cardiovascular Cardiovascular: Denies chest pain and Denies dyspnea Respiratory Respiratory: Denies dyspnea Gastrointestinal Gastrointestinal: Denies abdominal pain Musculoskeletal Musculoskeletal: Reports back pain and Reports tingling Integumentary/Breasts Skin/Breast: Denies lesions and Denies rash Neurologic Neurologic: Denies behavioral changes and Reports tingling Psychiatric Psychiatric: Denies behavioral changes Hematologic/Lymphatic Hematologic/Lymphatic: Denies easy bleeding and Denies easy bruising Patient History Medical History Anxiety (Chronic) Chicken pox (Resolved ~1991) Depression (Chronic ~1997) No significant medical problems (Acute) Social History Smoking Status: Never smoker alcohol intake: former substance use type: does not use Smoking Status: Never smoker alcohol intake frequency: a few times a week Alcohol type: beer Substance Use Type: marijuana Exam Initial Vital Signs Initial Vital Signs: Vital Signs Temperature 97.7 F 07/13/19 21:45 Pulse Rate 60 07/13/19 21:45 Respiratory Rate 20 07/13/19 21:45 Blood Pressure 140/80 07/13/19 21:45 Pulse Oximetry 97 07/13/19 21:45 Const General: cooperative and comfortable Orientation: alert and awake Resp Effort & Inspection: normal respiratory effort Cardio Rate: regular rate Back/Spine/Pelvis Thoracic/Lumbar Spine: paraspinal tenderness Skin Lesions: no lesions Rashes: no rashes Neuro General: alert and awake Cognition: normal cognition Speech: speech normal Motor: muscle tone normal throughout Sensory Exam: no sensory deficits noted Extrem General: normal to inspection and capillary refill normal Psych Appearance: grossly normal and well kempt Course Orders Ordered: Discontinued Medications Cyclobenzaprine HCl (Flexeril 10 Mg Prepack) 1 bottle MISC SEEINSTR ONE Stop: 07/13/19 22:13 Last Admin: 07/13/19 22:19 Dose: 1 bottle Documented by: ANAYELI Hydromorphone HCl (Dilaudid) 1 mg IM NOW ONE Stop: 07/13/19 22:05 Last Admin: 07/13/19 22:20 Dose: 1 mg Documented by: ANAYELI Ketorolac Tromethamine (Toradol) 30 mg IM NOW ONE Stop: 07/13/19 22:05 Last Admin: 07/13/19 22:19 Dose: 30 mg Documented by: ANAYELI Vital Signs Vital signs: Vital Signs - 8 hr 07/13/19 21:45 07/13/19 23:12 Temperature 97.7 F Pulse Rate 60 62 Respiratory Rate 20 16 Blood Pressure 140/80 134/72 Pulse Oximetry 97 97 MDM - Back Pain/Injury MDM Narrative Medical decision making narrative: Suspect musculoskeletal back pain. Low suspicion for cauda equina given history and physical. Will treat symptoms. Patient was given return precautions and follow-up instructions. He expressed understanding and agreement with plan. Discharge Plan Departure Patient Disposition: Home Clinical Impression: Lower back pain Qualifiers: Chronicity: acute Back pain laterality: left Sciatica presence: with sciatica Sciatica laterality: sciatica of left side Qualified Code(s): M54.42 - Lumbago with sciatica, left side Discharge Date/Time: 07/13/19 23:12 Instructions: DI for Back Pain With Sciatica, Activity May Be Better then Rest for Low Back Pain Recovery Activity Restrictions/Additional Instructions: Recommend that you continue with the anti-inflammatories such as Motrin/ibuprofen. You can take 600-800 mg 3 times a day with food. Take Flexeril as directed. Contact your primary provider for follow-up. Return to the emergency department for any new or worsening symptoms Prescriptions: New cyclobenzaprine 10 mg tablet 10 mg PO TID PRN (Reason: muscle spasm) Qty: 7 RF: 0 No Action multivitamin tablet 1 tab PO DAILY RF: 0 dextroamphetamine-amphetamine [Adderall] 20 mg tablet 1 tab PO BID Qty: 60 RF: 0 paroxetine HCl 20 mg tablet 20 mg PO DAILY Qty: 90 RF: 3 clobetasol 0.05 % ointment 1 applictn TOP BID Qty: 30 RF: 5 benzonatate 200 mg capsule 200 mg PO TID PRN (Reason: cough) Qty: 20 RF: 0 Referrals: Grady Arora MD [Primary Care Provider] - Stand Alone Forms: Work Release Note
[2019-07-13] MEDS: CYCLOBENZAPRINE 10 MG PREPACK 1 BOTTLE MISC (22:19)
[2019-07-13] MEDS: KETOROLAC 60 MG/2 ML VIAL 30 MG IM (22:19)
[2019-07-13] MEDS: HYDROMORPHONE 1 MG INJ IM (22:20)
[2019-07-13 23:12] VITALS: BP 134/72; PULSE 62; RESP 16; O2SAT 97
== END 2019-07-13 23:12 | disposition home or self-care (01) ==
PROVIDERS: Emergency Provider Emergency Medicine; PCP Family Medicine
DX: M54.42 Lumbago with sciatica, left side (principal)
CPT/HCPCS: 96372; 99281; 99283; J1170; J1885

== ENCOUNTER 2019-07-14 12:57 | Emergency (ER) | payer OTHER, MEDICAID, SELFPAY ==
[2019-07-14 13:04] VITALS: BP 159/93; PULSE 47; RESP 12; O2SAT 100; BMI 34.0
--- NOTE | 2019-07-14 13:10 | ED.EXTPRO ---
HPI - Extremity Problem General Chief complaint: Extremity Problem,Nontraumatic Stated complaint: was here last night for pain in left thigh Time Seen by Provider: 07/14/19 13:08 Source: patient Mode of arrival: Wheelchair Limitations: no limitations History of Present Illness HPI Narrative: Patient is a 34-year-old presenting with left-sided back and leg pain. He was seen evaluated here last evening for the same. He denies any fall or injury. He said he was sitting in his car when he had sudden onset of back pain radiating down his left leg. He states he got a shot of Toradol last night which did seem to help and now he just has pain in his left hip that radiates down his left anterior thigh. No changes in bowel or bladder habits he took naproxen and Flexeril his last dose of naproxen was earlier this morning. He says it hasn't helped. He did take some buddies tramadol last night which he says didn't help much either. Related Data Home Medications Medication Instructions Recorded Confirmed multivitamin 1 tab PO DAILY 10/02/18 07/14/19 dextroamphetamine-amphetamine 20 mg PO BID 07/14/19 07/14/19 [Adderall] Previous Rx's Medication Instructions Recorded paroxetine HCl 20 mg tablet 20 mg PO DAILY #90 tab 07/30/18 benzonatate 200 mg capsule 200 mg PO TID PRN #20 cap 12/09/18 clobetasol 0.05 % topical ointment 1 applictn TOP BID #30 gram 01/07/19 cyclobenzaprine 10 mg PO TID PRN #7 tab 07/13/19 diazepam [Valium] 5 mg PO BID PRN #10 tab 07/14/19 Allergies Allergy/AdvReac Type Severity Reaction Status Date / Time ciprofloxacin [From CIPRO] Allergy Mild MUSCLE/JOINT Verified 07/14/19 13:08 PAIN &SWELLING Review of Systems Review of Systems Narrative: GENERAL: Denies chills,fever HEENT: Denies throat pain RESPIRATORY: Denies dyspnea, cough, wheezing CARDIOVASCULAR: Denies chest pain, palpitations GASTROINTESTINAL: Denies nausea, vomiting MUSCULOSKELETAL: See HPI SKIN: No rash, no laceration, no pruritus NEUROLOGIC: Denies weakness, dizziness, headache, numbness 8 point review of systems is negative except for those stated above and HPI Patient History Social History Smoking Status: Never smoker alcohol intake: former substance use type: does not use Smoking Status: Never smoker alcohol intake frequency: a few times a week Alcohol type: beer Substance Use Type: marijuana Exam Initial Vital Signs Initial Vital Signs: Vital Signs Pulse Rate 47 L 07/14/19 13:04 Respiratory Rate 12 07/14/19 13:04 Blood Pressure 159/93 H 07/14/19 13:04 Pulse Oximetry 100 07/14/19 13:04 GENERAL: Well-appearing, well-nourished and in no acute distress. CARDIOVASCULAR: peripheral pulses in tact, cap refill <2 sec RESPIRATORY: No respiratory distress, speaks in full sentences without difficulty ABDOMEN: Soft, nontender, no guarding or rebound BACK: No vertebral tenderness no step-offs, mild pain left inguinal ligament area sensation in lower extremities intact EXTREMITIES: Normal range of motion, no clubbing or edema. Neurovascularly intact NEUROLOGICAL: Cranial nerves II through XII grossly intact. Normal gait and speech. SKIN: Warm, dry, no petechiae, no rashes or lesions. Course Orders Ordered: Discontinued Medications Diazepam (Valium) 5 mg PO NOW ONE Stop: 07/14/19 13:18 Last Admin: 07/14/19 13:48 Dose: 5 mg Documented by: BOOGIE Vital Signs Vital signs: Vital Signs - 8 hr 07/14/19 13:04 07/14/19 14:48 Pulse Rate 47 L 55 L Respiratory Rate 12 16 Blood Pressure 159/93 H 138/78 Pulse Oximetry 100 100 MDM - Extremity (Nontraumatic) MDM Narrative Medical decision making narrative: At this time no indication for any imaging he has not had traumatic fall. He took naproxen just to arrival not indicated to give him Toradol. Will change up his muscle relaxer from Flexeril to Valium.. Discharge Plan Departure Patient Disposition: Home Clinical Impression: Lower back pain Qualifiers: Chronicity: acute Back pain laterality: left Sciatica presence: with sciatica Sciatica laterality: sciatica of left side Qualified Code(s): M54.42 - Lumbago with sciatica, left side Discharge Date/Time: 07/14/19 14:48 Instructions: DI for Sciatica Activity Restrictions/Additional Instructions: *You have been diagnosed with left-sided sciatic pain *What to do: At this time no indication for x-rays, recommend light stretching, possible physical therapy *Continue to take medications as directed Stop taking cyclobenzaprine/Flexeril Start taking Valium 5 mg every 12 hours if needed for muscle spasm--> SENT TO [facility] [place] *Follow up with your primary care provider in 2-3 days *Return to ER if you should have increasing leg weakness numbness, tingling or any new, worsening or concerning symptoms CONTROLLED SUBSTANCE DISCHARGE (Narcotoic/benzodiazepine/Flexeril/Phenergan) 1. You have been prescribed narcotic medications, it does have acetaminophen/Tylenol/paracetamol in it so do not take extra Tylenol or Tylenol containing products 2. Please understand that we cannot provide further refills of narcotics, benzodiazepines or controlled substances through the ED and her pain management will need to be through your provider. 3. While on these medications you cannot drive or operate heavy machinery. 4. You cannot sign legal documents or perform any duties such as this. 5. As long as you're taking opiate pain medications he should also be taking a stool softener such as Colace, Dulcolax, MiraLAX or prune juice, to help avoid constipation. Prescriptions: New diazepam [Valium] 5 mg tablet 5 mg PO BID PRN (Reason: muscle spasm) Qty: 10 RF: 0 No Action multivitamin tablet 1 tab PO DAILY RF: 0 paroxetine HCl 20 mg tablet 20 mg PO DAILY Qty: 90 RF: 3 clobetasol 0.05 % ointment 1 applictn TOP BID Qty: 30 RF: 5 benzonatate 200 mg capsule 200 mg PO TID PRN (Reason: cough) Qty: 20 RF: 0 cyclobenzaprine 10 mg tablet 10 mg PO TID PRN (Reason: muscle spasm) Qty: 7 RF: 0 dextroamphetamine-amphetamine [Adderall] 20 mg tablet 20 mg PO BID RF: 0 Referrals: Grady Arora MD [Primary Care Provider] -
[2019-07-14] MEDS: diazePAM 5 MG TABLET PO (13:48)
[2019-07-14 14:48] VITALS: BP 138/78; PULSE 55; RESP 16; O2SAT 100
== END 2019-07-14 14:48 | disposition home or self-care (01) ==
PROVIDERS: Emergency Provider Emergency Medicine; PCP Family Medicine
DX: M54.42 Lumbago with sciatica, left side (principal)
CPT/HCPCS: 99281; 99283

== ENCOUNTER → 2019-07-25 10:26 | Outpatient (CLI) | payer OTHER, MEDICAID, SELFPAY ==
--- NOTE | 2019-07-25 10:30 | DI.RAD.S_ITS ---
PROCEDURE: XR LUMBAR SPINE 2-3V INDICATIONS: low back pain TECHNIQUE: 3 views of the lumbar spine were acquired. COMPARISON: [facility], , -SPINE 2-3 VIEWS, 04/12/2010, 12:24. FINDINGS: Bones: 5 [id number] vertebrae are present. There is normal bony alignment. No vertebral body compression fractures. No suspicious bony lesions. Soft tissues: Overlying bowel gas pattern is normal. No suspicious soft tissue calcifications. IMPRESSION: No acute radiographic findings. If there is continued pain, followup exam or additional imaging such as MRI or CT could be performed for further assessment. Dictated by: Martine Serna M.D. on 07/25/2019 at 11:28 Approved by: Martine Serna M.D. on 07/25/2019 at 11:37
== END ==
PROVIDERS: PCP Family Medicine; Visit Provider Nurse Practitioner Family
DX: M54.5 Low back pain (principal)
CPT/HCPCS: 72100

== ENCOUNTER 2019-09-08 13:45 | Outpatient (RCR) | payer OTHER, MEDICAID, SELFPAY ==
--- NOTE | 2019-08-05 14:09 | PT.OTN ---
Current Diagnoses Low back pain (08/05/19) Physical Therapy Treatment Note PT-OP-A Visit Information Start: 08/04/19 18:56 Freq: Status: Active Protocol: Document 08/05/19 12:15 MB (Rec: 08/05/19 13:20 MB [id number]) Out-Patient Physical Therapy Visit Information Visit Information Visit Type Initial Evaluation Visit Note CHPW and 24 units Visit Start Time 12:15 Visit Stop Time 13:15 Total Visit Minutes 60 Visit Number 0/24 units PT-OP-B Current Condition Start: 08/04/19 18:56 Freq: Status: Active Protocol: Document 08/05/19 12:15 MB (Rec: 08/05/19 13:20 MB [id number]) Current Condition History of Current Condition Onset Date 07/14/19 Current Complaints Pt reports pain in left LB, anterior hip and numbness in anterior leg/knee History of Current Condition Pt states that he had a pinch in the back and then had cramping pain down his left leg to his knee and up to left LB. He went to the ED and received a shot and a muscle relaxer by mouth. He had two ED visits in two days because he could not get in with PCP who was out of the office. He had the least pain with lying on his stomach. Over the last 5 days, he reports improvement in pain. Pt rates pain as 4/10 in his left LB, SI, down the front of his left leg from the groin and down to knee, all dermatomes. He reports numbness over his left knee. Pt points to L3-4 dermatome area. He now has the least amount of pain lying on his back. He sleeps with a pillow under his left leg. He has to sit to put on pants. It hurts when he flexes his leg. 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 Pt also only has 24 units allowed per insurance PT-OP-C Subjective Start: 08/04/19 18:56 Freq: Status: Active Protocol: Document 08/05/19 12:15 MB (Rec: 08/05/19 13:45 MB [id number]) OP-PT Subjective Patient Comments Patient Comments Pt is concerned about needing to get back to work and wonders what might irritate his back. Patient Reported Progress Improving Patient Questionnaires Oswestry Low Back Index Oswestry Impairment 40 to 59% Impaired (Score 40- 59) PT-OP-J Posture/Palpation/Skin Start: 08/04/19 18:56 Freq: Status: Active Protocol: Document 08/05/19 12:15 MB (Rec: 08/05/19 14:09 MB [id number]) Posture Evaluation Comments Posture Comments Standing: decreased cervical lordosis, upper thoracic kyphosis, Dowager's hump, mild anterior tilt pelvis, right scapular protraction and elevation, higher right iliac crest compared to the left. PT-OP-K Range of Motion Start: 08/04/19 18:56 Freq: Status: Active Protocol: Document 08/05/19 12:15 MB (Rec: 08/05/19 14:09 MB [id number]) Hip Goniometric Range of Motion Hip Left Passive Hip ROM WFL No Testing Position Supine Internal Rotation 10 External Rotation 30 Right Passive Hip ROM WFL No Testing Position Supine Internal Rotation 10 External Rotation 30 PT-OP-L Special Tests Start: 08/04/19 18:56 Freq: Status: Active Protocol: Document 08/05/19 12:15 MB (Rec: 08/05/19 14:09 MB [id number]) Special Tests Other Special Tests Special Tests Positive Slump on the left for left foot pain Positive Scour for left SI pain but no groin pain Left passive ER causes 5/10 pain B passive SLR limited: left 30 deg and right 45 deg PT-OP-M Strength Start: 08/04/19 18:56 Freq: Status: Active Protocol: Document 08/05/19 12:15 MB (Rec: 08/05/19 14:09 MB [id number]) Hip Strength Hip Manual Muscle Testing Left Flexion (L2) 2- Poor- Extension (S1) 2 Poor Abduction 2- Poor- Right Flexion (L2) 4 Good Extension (S1) 2+ Poor+ Abduction 2+ Poor+ Knee Strength Knee Manual Muscle Testing Left Flexion (S2) 4 Good Extension (L3) 3+ Fair+ Right Flexion (S2) 5 Normal Extension (L3) 5 Normal Ankle/Foot Strength Ankle and Foot Manual Muscle Testing Left Dorsiflexion (L4) 3+ Fair+ Comments Great toe extension 4/5 Right Dorsiflexion (L4) 5 Normal Comments Great toe extension 4/5 PT-OP-Q Treatments Start: 08/04/19 18:56 Freq: Status: Active Protocol: Document 08/05/19 12:15 MB (Rec: 08/05/19 14:09 MB [id number]) Therapeutic Exercises Supine Exercises Pelvic realignment exercises Comments 5 reps of each exercise with 3 sec hold Self-Care/Home Management Treatment Education Patient Education Body Mechanics Other Education Crawling or log roll into bed; sleep with pillow under both legs; experiment with how long he can stand without pain before calling in to work to return to work, 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 Prone lying 1-3 minutes with forehead on hands PT-OP-T Assessment and Plan Start: 08/04/19 18:56 Freq: Status: Active Protocol: Document 08/05/19 12:15 MB (Rec: 08/05/19 14:09 MB [id number]) Physical Therapy Assessment Rehab Potential Rehabilitation Potential Good Evaluation Complexity Number of Personal Factors/Comorbidities 0 Number of Body Systems Impaired 1-2 Clinical Presentation at Evaluation Stable Impairments Other Impairments Presentation is stable vs evolving given numbness and pain likely radiating from lumbar spine. He is not currently working so it is difficult to tell if his condition is truly stable. Goals 4 Penitentiary Goal (LTG) Pt will perform progressive HEP including pelvic realignment, flexibility, strengthening and body mechanics and ergonomic training to improve safety with work by 10/06/2019. LTG Duration 8 weeks 3 Manager Planning Goal (LTG) Pt will present with B hip flexion and abduction strength to at least 4/5 and B knee flexion and extension strength to 5/5 to improve transfers and activity by 10/06/2019. LTG Duration 8 weeks 2 Manager Planning Goal (LTG) Pt will report a 75% improvement in left LB and hip pain to allow return to work by 10/06/2019. LTG Duration 8 weeks 1 Impairment Pain with functional activities Manager Planning Goal (LTG) Pt will present with Oswestry LBP scale score to reflect no more than 10% impairment to allow safe return to work by . LTG Duration 8 weeks Assessment Summary Assessment Pt is a 34 y/o male presenting with left SI and hip pain and left L3-4 numbness since . He reports that his symptoms are improving and he reports 4/10 pain at its worst during activities and pain up to 5/10 with passive left hip ER and attempted MMT left hip flexion and abduction in supine this date. He presents with postural changes, pelvic obliquities, decreased B passive SLR right 45 deg and left 30 deg, B LE weakness greater on the left and pain with provocative special testing with Slump and Scour. Pt will benefit from PT for postural, pelvic alignment, body mechanics and ergonomic, flexibility and strength training. 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 Pt is pleasant and participatory with PT initial assessment today and responds well to pelvic realignment exercises. Physical Therapy Plan Frequency and Duration Frequency of Treatment 2x/Week Duration of Treatment 8 weeks Plan of Care Start Date 08/05/19 Plan of Care End Date 10/06/19 Therapeutic Interventions Therapeutic Interventions Aquatic Therapy,Balance Training,Home Exercise Program ,Joint Mobilizations,Manual Therapy,Neuromuscular Re- education,Patient/Caregiver Education,Self-Care/Home Management,Sensory Integration ,Soft Tissue Mobilization, Taping,Therapeutic Activities, Therapeutic Exercises Modalities Cold Pack/Ice Massage,Electric Stimulation,Hot Packs, Ultrasound Other Therapeutic Interventions Cold laser if appropriate Next Visit Focus/Plan Next Note Type Treatment Note Next Visit Plan Review pelvic realignment exercises and prone lying, progress core stabilization with abdominal drawing in in hook lying and progression, possible gentle hamstring and hip flexor stretching
--- NOTE | 2019-08-05 14:10 | PT.OPPOC ---
Physical, Occupational & Speech Therapy At [facility] Current Diagnoses Low back pain (08/05/19) Visit Care Team Role Provider Type Grady Arora MD Primary Care Provider Physician Specialty: [facility] Practice Address: [address] [place] [address], [id number] Email: [email or web address] MONTY Garcia Attending Provider Advanced Instantizer Operator Specialty: [facility] Address: [address] [place] [address], [id number] Email: [email or web address] Plan Of Care PT-OP-T Assessment and Plan Start: 08/04/19 18:56 Freq: Status: Active Protocol: Document 08/05/19 12:15 MB (Rec: 08/05/19 14:09 MB [id number]) Physical Therapy Assessment Rehab Potential Rehabilitation Potential Good Evaluation Complexity Number of Personal Factors/Comorbidities 0 Number of Body Systems Impaired 1-2 Clinical Presentation at Evaluation Stable Impairments Other Impairments Presentation is stable vs evolving given numbness and pain likely radiating from lumbar spine. He is not currently working so it is difficult to tell if his condition is truly stable. Goals 4 Snf Goal (LTG) Pt will perform progressive HEP including pelvic realignment, flexibility, strengthening and body mechanics and ergonomic training to improve safety with work by 10/06/2019. LTG Duration 8 weeks 3 Snf Goal (LTG) Pt will present with B hip flexion and abduction strength to at least 4/5 and B knee flexion and extension strength to 5/5 to improve transfers and activity by 10/06/2019. LTG Duration 8 weeks 2 Snf Goal (LTG) Pt will report a 75% improvement in left LB and hip pain to allow return to work by 10/06/2019. LTG Duration 8 weeks 1 Impairment Pain with functional activities Snf Goal (LTG) Pt will present with Oswestry LBP scale score to reflect no more than 10% impairment to allow safe return to work by . LTG Duration 8 weeks Assessment Summary Assessment Pt is a 34 y/o male presenting with left SI and hip pain and left L3-4 numbness since . He reports that his symptoms are improving and he reports 4/10 pain at its worst during activities and pain up to 5/10 with passive left hip ER and attempted MMT left hip flexion and abduction in supine this date. He presents with postural changes, pelvic obliquities, decreased B passive SLR right 45 deg and left 30 deg, B LE weakness greater on the left and pain with provocative special testing with Slump and Scour. Pt will benefit from PT for postural, pelvic alignment, body mechanics and ergonomic, flexibility and strength training. 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 Pt is pleasant and participatory with PT initial assessment today and responds well to pelvic realignment exercises. Physical Therapy Plan Frequency and Duration Frequency of Treatment 2x/Week Duration of Treatment 8 weeks Plan of Care Start Date 08/05/19 Plan of Care End Date 10/06/19 Therapeutic Interventions Therapeutic Interventions Aquatic Therapy,Balance Training,Home Exercise Program ,Joint Mobilizations,Manual Therapy,Neuromuscular Re- education,Patient/Caregiver Education,Self-Care/Home Management,Sensory Integration ,Soft Tissue Mobilization, Taping,Therapeutic Activities, Therapeutic Exercises Modalities Cold Pack/Ice Massage,Electric Stimulation,Hot Packs, Ultrasound Other Therapeutic Interventions Cold laser if appropriate Next Visit Focus/Plan Next Note Type Treatment Note Next Visit Plan Review pelvic realignment exercises and prone lying, progress core stabilization with abdominal drawing in in hook lying and progression, possible gentle hamstring and hip flexor stretching Plan of Care Dates Plan of Care Start Date 08/05/19 Plan of Care End Date 10/06/19 Electronically Signed by: Sandra Juarez PT 08/05/19 [id number] Please Sign and Return: I have reviewed this Plan of Care and certify that the skilled therapy services above are required to meet the patient?s needs. Physician Signature Date Printed Name and Credentials Clinical Instructor Signature Printed Name and Credentials
--- NOTE | 2019-08-07 18:32 | PT.OTN ---
Current Diagnoses Low back pain (08/07/19) Physical Therapy Treatment Note PT-OP-A Visit Information Start: 08/04/19 18:56 Freq: Status: Active Protocol: Document 08/07/19 15:22 LR (Rec: 08/07/19 18:32 [facility] [id number]) Out-Patient Physical Therapy Visit Information Visit Information Visit Note CHPW and 24 units Visit Start Time 15:17 Visit Stop Time 16:10 Total Visit Minutes 52 Visit Number 3/24 units Number of SCHEDULE ANNOUNCER Visits 0 PT-OP-B Current Condition Start: 08/04/19 18:56 Freq: Status: Active Protocol: Document 08/05/19 12:15 MB (Rec: 08/05/19 13:20 MB [id number]) Current Condition History of Current Condition Onset Date 07/14/19 Current Complaints Pt reports pain in left LB, anterior hip and numbness in anterior leg/knee History of Current Condition Pt states that he had a pinch in the back and then had cramping pain down his left leg to his knee and up to left LB. He went to the ED and received a shot and a muscle relaxer by mouth. He had two ED visits in two days because he could not get in with PCP who was out of the office. He had the least pain with lying on his stomach. Over the last 5 days, he reports improvement in pain. Pt rates pain as 4/10 in his left LB, SI, down the front of his left leg from the groin and down to knee, all dermatomes. He reports numbness over his left knee. Pt points to L3-4 dermatome area. He now has the least amount of pain lying on his back. He sleeps with a pillow under his left leg. He has to sit to put on pants. It hurts when he flexes his leg. 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 Pt also only has 24 units allowed per insurance PT-OP-C Subjective Start: 08/04/19 18:56 Freq: Status: Active Protocol: Document 08/07/19 15:22 [facility] (Rec: 08/07/19 18:32 [facility] [id number]) OP-PT Subjective Patient Comments Patient Comments Pt reports compliance with exercises. PT-OP-J Posture/Palpation/Skin Start: 08/04/19 18:56 Freq: Status: Active Protocol: Document 08/05/19 12:15 MB (Rec: 08/05/19 14:09 MB [id number]) Posture Evaluation Comments Posture Comments Standing: decreased cervical lordosis, upper thoracic kyphosis, Dowager's hump, mild anterior tilt pelvis, right scapular protraction and elevation, higher right iliac crest compared to the left. PT-OP-K Range of Motion Start: 08/04/19 18:56 Freq: Status: Active Protocol: Document 08/05/19 12:15 MB (Rec: 08/05/19 14:09 MB [id number]) Hip Goniometric Range of Motion Hip Left Passive Hip ROM WFL No Testing Position Supine Internal Rotation 10 External Rotation 30 Right Passive Hip ROM WFL No Testing Position Supine Internal Rotation 10 External Rotation 30 PT-OP-L Special Tests Start: 08/04/19 18:56 Freq: Status: Active Protocol: Document 08/05/19 12:15 MB (Rec: 08/05/19 14:09 MB [id number]) Special Tests Other Special Tests Special Tests Positive Slump on the left for left foot pain Positive Scour for left SI pain but no groin pain Left passive ER causes 5/10 pain B passive SLR limited: left 30 deg and right 45 deg PT-OP-M Strength Start: 08/04/19 18:56 Freq: Status: Active Protocol: Document 08/05/19 12:15 MB (Rec: 08/05/19 14:09 MB [id number]) Hip Strength Hip Manual Muscle Testing Left Flexion (L2) 2- Poor- Extension (S1) 2 Poor Abduction 2- Poor- Right Flexion (L2) 4 Good Extension (S1) 2+ Poor+ Abduction 2+ Poor+ Knee Strength Knee Manual Muscle Testing Left Flexion (S2) 4 Good Extension (L3) 3+ Fair+ Right Flexion (S2) 5 Normal Extension (L3) 5 Normal Ankle/Foot Strength Ankle and Foot Manual Muscle Testing Left Dorsiflexion (L4) 3+ Fair+ Comments Great toe extension 4/5 Right Dorsiflexion (L4) 5 Normal Comments Great toe extension 4/5 PT-OP-Q Treatments Start: 08/04/19 18:56 Freq: Status: Active Protocol: Document 08/07/19 15:22 [facility] (Rec: 08/07/19 18:32 [facility] [id number]) Therapeutic Exercises Supine Exercises heel slides Supine Exercise Name w/Tabd contraction Side bilateral Reps/Minutes 10 september Supine Exercise Name w/Tabd contraction Side bilateral Reps/Minutes 2x8 Comments dec pain after manual hip inf glide LTR Side bilateral Reps/Minutes 10 Comments focus on segmental control stretch Supine Exercise Name piriformis Side left Reps/Minutes 30 sec x2 Comments attempted HS & hip flexor ( RKTC) but too painful so stopped Pelvic realignment exercises Comments 5 reps of each exercise with 3 sec hold Manual Therapy Treatment Soft Tissue Mobilization hip flexor Body Location L Mobilization Type Strumming,Sustained Pressure Joint Mobilizations innominiate Joint L Direction gapping FM Body Position Sidelying hip Joint L Direction inf FM Neuro Re-Education Treatment Other Activities PNF Details ant elvation Comments 1. rhythmic iniation 2. combo of isotonics PT-OP-R Modalities Start: 08/04/19 18:56 Freq: Status: Active Protocol: Document 08/07/19 15:22 [facility] (Rec: 08/07/19 18:32 [facility] [id number]) Hot Pack/Cold Pack Treatment Hot Pack Location LB Patient Position Hooklying Treatment Duration (minutes) 10 Patient Tolerance Good PT-OP-T Assessment and Plan Start: 08/04/19 18:56 Freq: Status: Active Protocol: Document 08/07/19 15:22 [facility] (Rec: 08/07/19 18:32 [facility] [id number]) Physical Therapy Assessment Goals 4 Pancake Professional Goal (LTG) Pt will perform progressive HEP including pelvic realignment, flexibility, strengthening and body mechanics and ergonomic training to improve safety with work by 10/06/2019. LTG Duration 8 weeks 3 [employer]ake Professional Goal (LTG) Pt will present with B hip flexion and abduction strength to at least 4/5 and B knee flexion and extension strength to 5/5 to improve transfers and activity by 10/06/2019. LTG Duration 8 weeks 2 [employer]ake Professional Goal (LTG) Pt will report a 75% improvement in left LB and hip pain to allow return to work by 10/06/2019. LTG Duration 8 weeks 1 Impairment Pain with functional activities Pancake Professional Goal (LTG) Pt will present with Oswestry LBP scale score to reflect no more than 10% impairment to allow safe return to work by . LTG Duration 8 weeks Assessment Summary Assessment Pt had pain with hip flexion passively and actively past 90 deg when presented in clinic. After manual treatement, dec pain with hip flex AROM and no pain with hip flex passively to chest. He has dec innominate mobility that likely contributes to his pain . Able to do core bracing exercises iwth cueing. Physical Therapy Plan Frequency and Duration Frequency of Treatment 2x/Week Duration of Treatment 8 weeks Plan of Care Start Date 08/05/19 Plan of Care End Date 10/06/19 Therapeutic Interventions Therapeutic Interventions Aquatic Therapy,Balance Training,Home Exercise Program ,Joint Mobilizations,Manual Therapy,Neuromuscular Re- education,Patient/Caregiver Education,Self-Care/Home Management,Sensory Integration ,Soft Tissue Mobilization, Taping,Therapeutic Activities, Therapeutic Exercises Modalities Cold Pack/Ice Massage,Electric Stimulation,Hot Packs, Ultrasound Other Therapeutic Interventions Cold laser if appropriate Next Visit Focus/Plan Next Note Type Treatment Note Next Visit Plan progress core stabilization with abdominal drawing in in hook lying and progression, manual thearpy for neural tension, assess standing pelvis position
--- NOTE | 2019-08-11 16:04 | PT.OTN ---
Current Diagnoses Low back pain (08/11/19) Physical Therapy Treatment Note PT-OP-A Visit Information Start: 08/04/19 18:56 Freq: Status: Active Protocol: Document 08/11/19 13:21 LR (Rec: 08/11/19 16:03 [facility] [id number]) Out-Patient Physical Therapy Visit Information Visit Information Visit Type Treatment Note Visit Start Time 14:38 Visit Stop Time 15:15 Total Visit Minutes 37 Visit Number 12/13 Number of EMAIL PRODUCTION SPECIALIST Visits 0 PT-OP-B Current Condition Start: 08/04/19 18:56 Freq: Status: Active Protocol: Document 08/05/19 12:15 MB (Rec: 08/05/19 13:20 MB [id number]) Current Condition History of Current Condition Onset Date 07/14/19 Current Complaints Pt reports pain in left LB, anterior hip and numbness in anterior leg/knee History of Current Condition Pt states that he had a pinch in the back and then had cramping pain down his left leg to his knee and up to left LB. He went to the ED and received a shot and a muscle relaxer by mouth. He had two ED visits in two days because he could not get in with PCP who was out of the office. He had the least pain with lying on his stomach. Over the last 5 days, he reports improvement in pain. Pt rates pain as 4/10 in his left LB, SI, down the front of his left leg from the groin and down to knee, all dermatomes. He reports numbness over his left knee. Pt points to L3-4 dermatome area. He now has the least amount of pain lying on his back. He sleeps with a pillow under his left leg. He has to sit to put on pants. It hurts when he flexes his leg. 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 Pt also only has 24 units allowed per insurance PT-OP-C Subjective Start: 08/04/19 18:56 Freq: Status: Active Protocol: Document 08/11/19 13:21 [facility] (Rec: 08/11/19 16:03 [facility] [id number]) OP-PT Subjective Patient Comments Patient Comments Pt reports compliance with exercises. [place] okay after last session PT-OP-J Posture/Palpation/Skin Start: 08/04/19 18:56 Freq: Status: Active Protocol: Document 08/05/19 12:15 MB (Rec: 08/05/19 14:09 MB [id number]) Posture Evaluation Comments Posture Comments Standing: decreased cervical lordosis, upper thoracic kyphosis, Dowager's hump, mild anterior tilt pelvis, right scapular protraction and elevation, higher right iliac crest compared to the left. PT-OP-K Range of Motion Start: 08/04/19 18:56 Freq: Status: Active Protocol: Document 08/05/19 12:15 MB (Rec: 08/05/19 14:09 MB [id number]) Hip Goniometric Range of Motion Hip Left Passive Hip ROM WFL No Testing Position Supine Internal Rotation 10 External Rotation 30 Right Passive Hip ROM WFL No Testing Position Supine Internal Rotation 10 External Rotation 30 PT-OP-L Special Tests Start: 08/04/19 18:56 Freq: Status: Active Protocol: Document 08/05/19 12:15 MB (Rec: 08/05/19 14:09 MB [id number]) Special Tests Other Special Tests Special Tests Positive Slump on the left for left foot pain Positive Scour for left SI pain but no groin pain Left passive ER causes 5/10 pain B passive SLR limited: left 30 deg and right 45 deg PT-OP-M Strength Start: 08/04/19 18:56 Freq: Status: Active Protocol: Document 08/05/19 12:15 MB (Rec: 08/05/19 14:09 MB [id number]) Hip Strength Hip Manual Muscle Testing Left Flexion (L2) 2- Poor- Extension (S1) 2 Poor Abduction 2- Poor- Right Flexion (L2) 4 Good Extension (S1) 2+ Poor+ Abduction 2+ Poor+ Knee Strength Knee Manual Muscle Testing Left Flexion (S2) 4 Good Extension (L3) 3+ Fair+ Right Flexion (S2) 5 Normal Extension (L3) 5 Normal Ankle/Foot Strength Ankle and Foot Manual Muscle Testing Left Dorsiflexion (L4) 3+ Fair+ Comments Great toe extension 4/5 Right Dorsiflexion (L4) 5 Normal Comments Great toe extension 4/5 PT-OP-Q Treatments Start: 08/04/19 18:56 Freq: Status: Active Protocol: Document 08/11/19 13:21 [facility] (Rec: 08/11/19 16:03 [facility] [id number]) Therapeutic Exercises Supine Exercises heel slides Supine Exercise Name w/Tabd contraction Side bilateral Reps/Minutes 10 september Supine Exercise Name w/Tabd contraction Side bilateral Reps/Minutes 8 Comments dec pain after manual hip inf glide LTR Side bilateral Reps/Minutes 10 Comments focus on segmental control stretch Supine Exercise Name piriformis Side left Reps/Minutes 30 sec Prone Exercises prone prop Reps/Minutes 1 min Standing Exercises self hip flexor release Standing Exercise Name w/plunger at wall Side left Other Exercises luke pose Reps/Minutes 30 sec Manual Therapy Treatment Soft Tissue Mobilization hip flexor Body Location L Mobilization Type Strumming,Sustained Pressure Joint Mobilizations sacrum Direction caudal & LUPA FM innominiate Comments R caudal FM L IR & ER FM hip Joint L Direction inf, & hip on axis ER & IR FM PT-OP-R Modalities Start: 08/04/19 18:56 Freq: Status: Active Protocol: Document 08/07/19 15:22 [facility] (Rec: 08/07/19 18:32 [facility] [id number]) Hot Pack/Cold Pack Treatment Hot Pack Location LB Patient Position Hooklying Treatment Duration (minutes) 10 Patient Tolerance Good PT-OP-T Assessment and Plan Start: 08/04/19 18:56 Freq: Status: Active Protocol: Document 08/11/19 13:21 [facility] (Rec: 08/11/19 16:03 [facility] [id number]) Physical Therapy Assessment Goals 4 P[employer] Hat Lining Goal (LTG) Pt will perform progressive HEP including pelvic realignment, flexibility, strengthening and body mechanics and ergonomic training to improve safety with work by 10/06/2019. LTG Duration 8 weeks 3 Detention Goal (LTG) Pt will present with B hip flexion and abduction strength to at least 4/5 and B knee flexion and extension strength to 5/5 to improve transfers and activity by 10/06/2019. LTG Duration 8 weeks 2 Detention Goal (LTG) Pt will report a 75% improvement in left LB and hip pain to allow return to work by 10/06/2019. LTG Duration 8 weeks 1 Impairment Pain with functional activities Detention Goal (LTG) Pt will present with Oswestry LBP scale score to reflect no more than 10% impairment to allow safe return to work by . LTG Duration 8 weeks Assessment Summary Assessment Pt has significant tightness ant in hip flexors and inguinal ligament area and would benefit from cont work in this area as this is likely a big factor in ant hip pain. IMproved ability to ER, IR & hip flex after mobilizations. At start R side of pelvis higher than L and improved slightly after manual. Physical Therapy Plan Frequency and Duration Frequency of Treatment 2x/Week Duration of Treatment 8 weeks Plan of Care Start Date 08/05/19 Plan of Care End Date 10/06/19 Next Visit Focus/Plan Next Note Type Treatment Note Next Visit Plan progress core stability as tolerated, work on neural tension, cont to work on iliacus & hip flexor
--- NOTE | 2019-08-13 13:56 | PT.OTN ---
Current Diagnoses Low back pain (08/13/19) Physical Therapy Treatment Note PT-OP-A Visit Information Start: 08/04/19 18:56 Freq: Status: Active Protocol: Document 08/13/19 13:04 MB (Rec: 08/13/19 13:55 MB [id number]) Out-Patient Physical Therapy Visit Information Visit Information Visit Type Treatment Note Visit Start Time 13:04 Visit Stop Time 13:00 Total Visit Minutes 37 Visit Number 7/24 units Number of SENIOR MECHANICAL DESIGN ENGINEER Visits 0 PT-OP-B Current Condition Start: 08/04/19 18:56 Freq: Status: Active Protocol: Document 08/05/19 12:15 MB (Rec: 08/05/19 13:20 MB [id number]) Current Condition History of Current Condition Onset Date 07/14/19 Current Complaints Pt reports pain in left LB, anterior hip and numbness in anterior leg/knee History of Current Condition Pt states that he had a pinch in the back and then had cramping pain down his left leg to his knee and up to left LB. He went to the ED and received a shot and a muscle relaxer by mouth. He had two ED visits in two days because he could not get in with PCP who was out of the office. He had the least pain with lying on his stomach. Over the last 5 days, he reports improvement in pain. Pt rates pain as 4/10 in his left LB, SI, down the front of his left leg from the groin and down to knee, all dermatomes. He reports numbness over his left knee. Pt points to L3-4 dermatome area. He now has the least amount of pain lying on his back. He sleeps with a pillow under his left leg. He has to sit to put on pants. It hurts when he flexes his leg. 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 He reports having taken fentynol last May and needing CPR and moved to hospital and this might have affected his thorax. He took the medication when a friend gave it to him after he hurt his toe. PT-OP-J Posture/Palpation/Skin Start: 08/04/19 18:56 Freq: Status: Active Protocol: Document 08/05/19 12:15 MB (Rec: 08/05/19 14:09 MB [id number]) Posture Evaluation Comments Posture Comments Standing: decreased cervical lordosis, upper thoracic kyphosis, Dowager's hump, mild anterior tilt pelvis, right scapular protraction and elevation, higher right iliac crest compared to the left. PT-OP-K Range of Motion Start: 08/04/19 18:56 Freq: Status: Active Protocol: Document 08/05/19 12:15 MB (Rec: 08/05/19 14:09 MB [id number]) Hip Goniometric Range of Motion Hip Left Passive Hip ROM WFL No Testing Position Supine Internal Rotation 10 External Rotation 30 Right Passive Hip ROM WFL No Testing Position Supine Internal Rotation 10 External Rotation 30 PT-OP-L Special Tests Start: 08/04/19 18:56 Freq: Status: Active Protocol: Document 08/05/19 12:15 MB (Rec: 08/05/19 14:09 MB [id number]) Special Tests Other Special Tests Special Tests Positive Slump on the left for left foot pain Positive Scour for left SI pain but no groin pain Left passive ER causes 5/10 pain B passive SLR limited: left 30 deg and right 45 deg PT-OP-M Strength Start: 08/04/19 18:56 Freq: Status: Active Protocol: Document 08/05/19 12:15 MB (Rec: 08/05/19 14:09 MB [id number]) Hip Strength Hip Manual Muscle Testing Left Flexion (L2) 2- Poor- Extension (S1) 2 Poor Abduction 2- Poor- Right Flexion (L2) 4 Good Extension (S1) 2+ Poor+ Abduction 2+ Poor+ Knee Strength Knee Manual Muscle Testing Left Flexion (S2) 4 Good Extension (L3) 3+ Fair+ Right Flexion (S2) 5 Normal Extension (L3) 5 Normal Ankle/Foot Strength Ankle and Foot Manual Muscle Testing Left Dorsiflexion (L4) 3+ Fair+ Comments Great toe extension 4/5 Right Dorsiflexion (L4) 5 Normal Comments Great toe extension 4/5 PT-OP-Q Treatments Start: 08/04/19 18:56 Freq: Status: Active Protocol: Document 08/13/19 13:04 MB (Rec: 08/13/19 13:55 MB [id number]) Manual Therapy Treatment Soft Tissue Mobilization Counterstrain Comments Pt denies eye pressure issues and DM. He is agreeable to Counterstrain to assess and treat fascial tension and PT treats stacks: standard lymphatic row thoracic to LEs. PT-OP-R Modalities Start: 08/04/19 18:56 Freq: Status: Active Protocol: Document 08/07/19 15:22 [facility] (Rec: 08/07/19 18:32 [facility] [id number]) Hot Pack/Cold Pack Treatment Hot Pack Location LB Patient Position Hooklying Treatment Duration (minutes) 10 Patient Tolerance Good PT-OP-T Assessment and Plan Start: 08/04/19 18:56 Freq: Status: Active Protocol: Document 08/13/19 13:04 MB (Rec: 08/13/19 13:55 MB [id number]) Physical Therapy Assessment Goals 4 Longterm Goal (LTG) Pt will perform progressive HEP including pelvic realignment, flexibility, strengthening and body mechanics and ergonomic training to improve safety with work by 10/06/2019. LTG Duration 8 weeks 3 Longterm Goal (LTG) Pt will present with B hip flexion and abduction strength to at least 4/5 and B knee flexion and extension strength to 5/5 to improve transfers and activity by 10/06/2019. LTG Duration 8 weeks 2 Longterm Goal (LTG) Pt will report a 75% improvement in left LB and hip pain to allow return to work by 10/06/2019. LTG Duration 8 weeks 1 Impairment Pain with functional activities Longterm Goal (LTG) Pt will present with Oswestry LBP scale score to reflect no more than 10% impairment to allow safe return to work by . LTG Duration 8 weeks Assessment Summary Assessment Pt with lymphatic venous fascial tension, greatest in both LEs from feet to hips. Continue manual work and progressive exercises. Physical Therapy Plan Frequency and Duration Frequency of Treatment 2x/Week Duration of Treatment 8 weeks Plan of Care Start Date 08/05/19 Plan of Care End Date 10/06/19 Therapeutic Interventions Therapeutic Interventions Aquatic Therapy,Balance Training,Home Exercise Program ,Joint Mobilizations,Manual Therapy,Neuromuscular Re- education,Patient/Caregiver Education,Self-Care/Home Management,Sensory Integration ,Soft Tissue Mobilization, Taping,Therapeutic Activities, Therapeutic Exercises Modalities Cold Pack/Ice Massage,Electric Stimulation,Hot Packs, Ultrasound Other Therapeutic Interventions Cold laser if appropriate Next Visit Focus/Plan Next Note Type Treatment Note Next Visit Plan Consider diaphragmatic breathing, progress core stability as tolerated, work on neural tension, cont to work on iliacus & hip flexor
--- NOTE | 2019-08-19 13:45 | PT.OTN ---
Current Diagnoses Low back pain (08/19/19) Physical Therapy Treatment Note PT-OP-A Visit Information Start: 08/04/19 18:56 Freq: Status: Active Protocol: Document 08/19/19 12:55 MB (Rec: 08/19/19 13:44 MB [id number]) Out-Patient Physical Therapy Visit Information Visit Information Visit Type Treatment Note Visit Start Time 12:55 Visit Stop Time 13:32 Total Visit Minutes 37 Visit Number 24 units Number of POLICY ADVISOR Visits 0 PT-OP-B Current Condition Start: 08/04/19 18:56 Freq: Status: Active Protocol: Document 08/05/19 12:15 MB (Rec: 08/05/19 13:20 MB [id number]) Current Condition History of Current Condition Onset Date 07/14/19 Current Complaints Pt reports pain in left LB, anterior hip and numbness in anterior leg/knee History of Current Condition Pt states that he had a pinch in the back and then had cramping pain down his left leg to his knee and up to left LB. He went to the ED and received a shot and a muscle relaxer by mouth. He had two ED visits in two days because he could not get in with PCP who was out of the office. He had the least pain with lying on his stomach. Over the last 5 days, he reports improvement in pain. Pt rates pain as 4/10 in his left LB, SI, down the front of his left leg from the groin and down to knee, all dermatomes. He reports numbness over his left knee. Pt points to L3-4 dermatome area. He now has the least amount of pain lying on his back. He sleeps with a pillow under his left leg. He has to sit to put on pants. It hurts when he flexes his leg. 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 Pt also only has 24 units allowed per insurance PT-OP-C Subjective Start: 08/04/19 18:56 Freq: Status: Active Protocol: Document 08/19/19 12:55 MB (Rec: 08/19/19 13:44 MB [id number]) OP-PT Subjective Patient Comments Patient Comments Pt states that he is feeling better. He con't to have pain in left adductor area and numbness around left knee. 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 PT-OP-J Posture/Palpation/Skin Start: 08/04/19 18:56 Freq: Status: Active Protocol: Document 08/05/19 12:15 MB (Rec: 08/05/19 14:09 MB [id number]) Posture Evaluation Comments Posture Comments Standing: decreased cervical lordosis, upper thoracic kyphosis, Dowager's hump, mild anterior tilt pelvis, right scapular protraction and elevation, higher right iliac crest compared to the left. PT-OP-K Range of Motion Start: 08/04/19 18:56 Freq: Status: Active Protocol: Document 08/05/19 12:15 MB (Rec: 08/05/19 14:09 MB [id number]) Hip Goniometric Range of Motion Hip Left Passive Hip ROM WFL No Testing Position Supine Internal Rotation 10 External Rotation 30 Right Passive Hip ROM WFL No Testing Position Supine Internal Rotation 10 External Rotation 30 PT-OP-L Special Tests Start: 08/04/19 18:56 Freq: Status: Active Protocol: Document 08/05/19 12:15 MB (Rec: 08/05/19 14:09 MB [id number]) Special Tests Other Special Tests Special Tests Positive Slump on the left for left foot pain Positive Scour for left SI pain but no groin pain Left passive ER causes 5/10 pain B passive SLR limited: left 30 deg and right 45 deg PT-OP-M Strength Start: 08/04/19 18:56 Freq: Status: Active Protocol: Document 08/05/19 12:15 MB (Rec: 08/05/19 14:09 MB [id number]) Hip Strength Hip Manual Muscle Testing Left Flexion (L2) 2- Poor- Extension (S1) 2 Poor Abduction 2- Poor- Right Flexion (L2) 4 Good Extension (S1) 2+ Poor+ Abduction 2+ Poor+ Knee Strength Knee Manual Muscle Testing Left Flexion (S2) 4 Good Extension (L3) 3+ Fair+ Right Flexion (S2) 5 Normal Extension (L3) 5 Normal Ankle/Foot Strength Ankle and Foot Manual Muscle Testing Left Dorsiflexion (L4) 3+ Fair+ Comments Great toe extension 4/5 Right Dorsiflexion (L4) 5 Normal Comments Great toe extension 4/5 PT-OP-Q Treatments Start: 08/04/19 18:56 Freq: Status: Active Protocol: Document 08/19/19 12:55 MB (Rec: 08/19/19 13:44 MB [id number]) Therapeutic Exercises Sitting Exercises Rolling pin STM quads Comments Performed today and added to HEP Standing Exercises STM with racquet ball Comments Glutes, QL QL stretch Comments B x20 sec, perform at least 1x /day at home Hip flexor stretch Comments 20 sec B x1, perform 1x/day at least Standing hip adductor stretch Comments Performed B 20 sec hold, to perform 1x/day Standing back extension Comments 10 sec hold x2, perform every hour Manual Therapy Treatment Soft Tissue Mobilization STM rolling pin quads Comments L quads supine PT-OP-R Modalities Start: 08/04/19 18:56 Freq: Status: Active Protocol: Document 08/07/19 15:22 [facility] (Rec: 08/07/19 18:32 [facility] [id number]) Hot Pack/Cold Pack Treatment Hot Pack Location LB Patient Position Hooklying Treatment Duration (minutes) 10 Patient Tolerance Good PT-OP-T Assessment and Plan Start: 08/04/19 18:56 Freq: Status: Active Protocol: Document 08/19/19 12:55 MB (Rec: 08/19/19 13:44 MB [id number]) Physical Therapy Assessment Goals 4 Senior Living Goal (LTG) Pt will perform progressive HEP including pelvic realignment, flexibility, strengthening and body mechanics and ergonomic training to improve safety with work by 10/06/2019. LTG Duration 8 weeks 3 Farm Machinery Set Up Mechanic Goal (LTG) Pt will present with B hip flexion and abduction strength to at least 4/5 and B knee flexion and extension strength to 5/5 to improve transfers and activity by 10/06/2019. LTG Duration 8 weeks 2 Senior Living Goal (LTG) Pt will report a 75% improvement in left LB and hip pain to allow return to work by 10/06/2019. LTG Duration 8 weeks 1 Impairment Pain with functional activities Senior Living Goal (LTG) Pt will present with Oswestry LBP scale score to reflect no more than 10% impairment to allow safe return to work by . LTG Duration 8 weeks Assessment Summary Assessment Initiated flexibility exercises for work as well as self-massage today. Con't progression. Physical Therapy Plan Frequency and Duration Frequency of Treatment 2x/Week Duration of Treatment 8 weeks Plan of Care Start Date 08/05/19 Plan of Care End Date 10/06/19 Therapeutic Interventions Therapeutic Interventions Aquatic Therapy,Balance Training,Home Exercise Program ,Joint Mobilizations,Manual Therapy,Neuromuscular Re- education,Patient/Caregiver Education,Self-Care/Home Management,Sensory Integration ,Soft Tissue Mobilization, Taping,Therapeutic Activities, Therapeutic Exercises Modalities Cold Pack/Ice Massage,Electric Stimulation,Hot Packs, Ultrasound Other Therapeutic Interventions Cold laser if appropriate Next Visit Focus/Plan Next Note Type Treatment Note Next Visit Plan Consider diaphragmatic breathing, progress core stability as tolerated, work on neural tension, cont to work on iliacus & hip flexor
--- NOTE | 2019-08-21 11:09 | PT.OTN ---
Current Diagnoses Low back pain (08/21/19) Physical Therapy Treatment Note PT-OP-A Visit Information Start: 08/04/19 18:56 Freq: Status: Active Protocol: Document 08/21/19 10:35 MB (Rec: 08/21/19 11:09 MB [id number]) Out-Patient Physical Therapy Visit Information Visit Information Visit Type Treatment Note Visit Start Time 10:35 Visit Stop Time 11:12 Total Visit Minutes 37 Visit Number 24 units Number of SURGICAL SERVICES COORDINATOR Visits 0 PT-OP-B Current Condition Start: 08/04/19 18:56 Freq: Status: Active Protocol: Document 08/05/19 12:15 MB (Rec: 08/05/19 13:20 MB [id number]) Current Condition History of Current Condition Onset Date 07/14/19 Current Complaints Pt reports pain in left LB, anterior hip and numbness in anterior leg/knee History of Current Condition Pt states that he had a pinch in the back and then had cramping pain down his left leg to his knee and up to left LB. He went to the ED and received a shot and a muscle relaxer by mouth. He had two ED visits in two days because he could not get in with PCP who was out of the office. He had the least pain with lying on his stomach. Over the last 5 days, he reports improvement in pain. Pt rates pain as 4/10 in his left LB, SI, down the front of his left leg from the groin and down to knee, all dermatomes. He reports numbness over his left knee. Pt points to L3-4 dermatome area. He now has the least amount of pain lying on his back. He sleeps with a pillow under his left leg. He has to sit to put on pants. It hurts when he flexes his leg. 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 Pt also only has 24 units allowed per insurance PT-OP-C Subjective Start: 08/04/19 18:56 Freq: Status: Active Protocol: Document 08/21/19 10:35 MB (Rec: 08/21/19 11:09 MB [id number]) OP-PT Subjective Patient Comments Patient Comments Pt has not yet gotten racquet ball. He is using tennis ball. He feels like his left quad might not be as numb after rolling pin STM last treatment . PT-OP-J Posture/Palpation/Skin Start: 08/04/19 18:56 Freq: Status: Active Protocol: Document 08/05/19 12:15 MB (Rec: 08/05/19 14:09 MB [id number]) Posture Evaluation Comments Posture Comments Standing: decreased cervical lordosis, upper thoracic kyphosis, Dowager's hump, mild anterior tilt pelvis, right scapular protraction and elevation, higher right iliac crest compared to the left. PT-OP-K Range of Motion Start: 08/04/19 18:56 Freq: Status: Active Protocol: Document 08/05/19 12:15 MB (Rec: 08/05/19 14:09 MB [id number]) Hip Goniometric Range of Motion Hip Left Passive Hip ROM WFL No Testing Position Supine Internal Rotation 10 External Rotation 30 Right Passive Hip ROM WFL No Testing Position Supine Internal Rotation 10 External Rotation 30 PT-OP-L Special Tests Start: 08/04/19 18:56 Freq: Status: Active Protocol: Document 08/05/19 12:15 MB (Rec: 08/05/19 14:09 MB [id number]) Special Tests Other Special Tests Special Tests Positive Slump on the left for left foot pain Positive Scour for left SI pain but no groin pain Left passive ER causes 5/10 pain B passive SLR limited: left 30 deg and right 45 deg PT-OP-M Strength Start: 08/04/19 18:56 Freq: Status: Active Protocol: Document 08/05/19 12:15 MB (Rec: 08/05/19 14:09 MB [id number]) Hip Strength Hip Manual Muscle Testing Left Flexion (L2) 2- Poor- Extension (S1) 2 Poor Abduction 2- Poor- Right Flexion (L2) 4 Good Extension (S1) 2+ Poor+ Abduction 2+ Poor+ Knee Strength Knee Manual Muscle Testing Left Flexion (S2) 4 Good Extension (L3) 3+ Fair+ Right Flexion (S2) 5 Normal Extension (L3) 5 Normal Ankle/Foot Strength Ankle and Foot Manual Muscle Testing Left Dorsiflexion (L4) 3+ Fair+ Comments Great toe extension 4/5 Right Dorsiflexion (L4) 5 Normal Comments Great toe extension 4/5 PT-OP-Q Treatments Start: 08/04/19 18:56 Freq: Status: Active Protocol: Document 08/21/19 10:35 MB (Rec: 08/21/19 11:09 MB [id number]) Therapeutic Exercises Supine Exercises Arcenio stretch Reps/Minutes B 2 reps, 30 sec Comments Opposite leg with knee bent and foot on plinth Standing Exercises Hip abductor extension Comments Level 1 band, 5 reps, L alternating, added to HEP Manual Therapy Treatment Soft Tissue Mobilization STM rolling pin quads Comments L quad, vastus lateralis supine PT-OP-R Modalities Start: 08/04/19 18:56 Freq: Status: Active Protocol: Document 08/07/19 15:22 [facility] (Rec: 08/07/19 18:32 [facility] [id number]) Hot Pack/Cold Pack Treatment Hot Pack Location LB Patient Position Hooklying Treatment Duration (minutes) 10 Patient Tolerance Good PT-OP-T Assessment and Plan Start: 08/04/19 18:56 Freq: Status: Active Protocol: Document 08/21/19 10:35 MB (Rec: 08/21/19 11:09 MB [id number]) Physical Therapy Assessment Goals 4 Correction Goal (LTG) Pt will perform progressive HEP including pelvic realignment, flexibility, strengthening and body mechanics and ergonomic training to improve safety with work by 10/06/2019. LTG Duration 8 weeks 3 Radio Interference Investigator Goal (LTG) Pt will present with B hip flexion and abduction strength to at least 4/5 and B knee flexion and extension strength to 5/5 to improve transfers and activity by 10/06/2019. LTG Duration 8 weeks 2 Correction Goal (LTG) Pt will report a 75% improvement in left LB and hip pain to allow return to work by 10/06/2019. LTG Duration 8 weeks 1 Impairment Pain with functional activities Correction Goal (LTG) Pt will present with Oswestry LBP scale score to reflect no more than 10% impairment to allow safe return to work by . LTG Duration 8 weeks Assessment Summary Assessment Initiated hook lying Arcenio stretch today and initiated hip strengthening. Physical Therapy Plan Frequency and Duration Frequency of Treatment 2x/Week Duration of Treatment 8 weeks Plan of Care Start Date 08/05/19 Plan of Care End Date 10/06/19 Therapeutic Interventions Therapeutic Interventions Aquatic Therapy,Balance Training,Home Exercise Program ,Joint Mobilizations,Manual Therapy,Neuromuscular Re- education,Patient/Caregiver Education,Self-Care/Home Management,Sensory Integration ,Soft Tissue Mobilization, Taping,Therapeutic Activities, Therapeutic Exercises Modalities Cold Pack/Ice Massage,Electric Stimulation,Hot Packs, Ultrasound Other Therapeutic Interventions Cold laser if appropriate Next Visit Focus/Plan Next Note Type Treatment Note Next Visit Plan Consider diaphragmatic breathing, progress core stability as tolerated, work on neural tension, cont to work on iliacus & hip flexor
--- NOTE | 2019-08-25 15:27 | PT.OTN ---
Current Diagnoses Low back pain (08/25/19) Physical Therapy Treatment Note PT-OP-A Visit Information Start: 08/04/19 18:56 Freq: Status: Active Protocol: Document 08/25/19 12:56 [facility] (Rec: 08/25/19 15:27 [facility] [id number]) Out-Patient Physical Therapy Visit Information Visit Information Visit Type Treatment Note Visit Start Time 14:35 Visit Stop Time 15:12 Total Visit Minutes 37 Visit Number Number of MEASUREMENT SPECIALIST Visits 0 PT-OP-B Current Condition Start: 08/04/19 18:56 Freq: Status: Active Protocol: Document 08/05/19 12:15 MB (Rec: 08/05/19 13:20 MB [id number]) Current Condition History of Current Condition Onset Date 07/14/19 Current Complaints Pt reports pain in left LB, anterior hip and numbness in anterior leg/knee History of Current Condition Pt states that he had a pinch in the back and then had cramping pain down his left leg to his knee and up to left LB. He went to the ED and received a shot and a muscle relaxer by mouth. He had two ED visits in two days because he could not get in with PCP who was out of the office. He had the least pain with lying on his stomach. Over the last 5 days, he reports improvement in pain. Pt rates pain as 4/10 in his left LB, SI, down the front of his left leg from the groin and down to knee, all dermatomes. He reports numbness over his left knee. Pt points to L3-4 dermatome area. He now has the least amount of pain lying on his back. He sleeps with a pillow under his left leg. He has to sit to put on pants. It hurts when he flexes his leg. 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 Pt also only has 24 units allowed per insurance PT-OP-C Subjective Start: 08/04/19 18:56 Freq: Status: Active Protocol: Document 08/25/19 12:56 [facility] (Rec: 08/25/19 15:27 [facility] [id number]) OP-PT Subjective Patient Comments Patient Comments Pt reports he was doing really well before working [employer]. H was supposed to work easy shifts but a lot of ppl called out so he was pretty busy so he is sore from working 3 days in a row. PT-OP-J Posture/Palpation/Skin Start: 08/04/19 18:56 Freq: Status: Active Protocol: Document 08/05/19 12:15 MB (Rec: 08/05/19 14:09 MB [id number]) Posture Evaluation Comments Posture Comments Standing: decreased cervical lordosis, upper thoracic kyphosis, Dowager's hump, mild anterior tilt pelvis, right scapular protraction and elevation, higher right iliac crest compared to the left. PT-OP-K Range of Motion Start: 08/04/19 18:56 Freq: Status: Active Protocol: Document 08/05/19 12:15 MB (Rec: 08/05/19 14:09 MB [id number]) Hip Goniometric Range of Motion Hip Left Passive Hip ROM WFL No Testing Position Supine Internal Rotation 10 External Rotation 30 Right Passive Hip ROM WFL No Testing Position Supine Internal Rotation 10 External Rotation 30 PT-OP-L Special Tests Start: 08/04/19 18:56 Freq: Status: Active Protocol: Document 08/05/19 12:15 MB (Rec: 08/05/19 14:09 MB [id number]) Special Tests Other Special Tests Special Tests Positive Slump on the left for left foot pain Positive Scour for left SI pain but no groin pain Left passive ER causes 5/10 pain B passive SLR limited: left 30 deg and right 45 deg PT-OP-M Strength Start: 08/04/19 18:56 Freq: Status: Active Protocol: Document 08/05/19 12:15 MB (Rec: 08/05/19 14:09 MB [id number]) Hip Strength Hip Manual Muscle Testing Left Flexion (L2) 2- Poor- Extension (S1) 2 Poor Abduction 2- Poor- Right Flexion (L2) 4 Good Extension (S1) 2+ Poor+ Abduction 2+ Poor+ Knee Strength Knee Manual Muscle Testing Left Flexion (S2) 4 Good Extension (L3) 3+ Fair+ Right Flexion (S2) 5 Normal Extension (L3) 5 Normal Ankle/Foot Strength Ankle and Foot Manual Muscle Testing Left Dorsiflexion (L4) 3+ Fair+ Comments Great toe extension 4/5 Right Dorsiflexion (L4) 5 Normal Comments Great toe extension 4/5 PT-OP-Q Treatments Start: 08/04/19 18:56 Freq: Status: Active Protocol: Document 08/25/19 12:56 [facility] (Rec: 08/25/19 15:27 [facility] [id number]) Therapeutic Exercises Standing Exercises squat Side bilateral Equipment Used L2 tband around knees Comments 10 hip gutierrez Side bilateral Reps/Minutes 10 sidestep Side bilateral Equipment Used Lvl 2 Reps/Minutes 20ft Manual Therapy Treatment Soft Tissue Mobilization adductors Body Location L Mobilization Type Rolling,Strumming Comments w/hip ER/IR hip flexor Body Location L Mobilization Type Strumming,Sustained Pressure Joint Mobilizations hip Joint L Direction post & lat gapping FM Self-Care/Home Management Treatment Education Other Education discussed avoiding bending & twisting of back at work PT-OP-R Modalities Start: 08/04/19 18:56 Freq: Status: Active Protocol: Document 08/07/19 15:22 [facility] (Rec: 08/07/19 18:32 [facility] [id number]) Hot Pack/Cold Pack Treatment Hot Pack Location LB Patient Position Hooklying Treatment Duration (minutes) 10 Patient Tolerance Good PT-OP-T Assessment and Plan Start: 08/04/19 18:56 Freq: Status: Active Protocol: Document 08/25/19 12:56 [facility] (Rec: 08/25/19 15:27 [facility] [id number]) Physical Therapy Assessment Goals 4 Detention Goal (LTG) Pt will perform progressive HEP including pelvic realignment, flexibility, strengthening and body mechanics and ergonomic training to improve safety with work by 10/06/2019. LTG Duration 8 weeks 3 Refrigeration Mechanic Goal (LTG) Pt will present with B hip flexion and abduction strength to at least 4/5 and B knee flexion and extension strength to 5/5 to improve transfers and activity by 10/06/2019. LTG Duration 8 weeks 2 Refrigeration Mechanic Goal (LTG) Pt will report a 75% improvement in left LB and hip pain to allow return to work by 10/06/2019. LTG Duration 8 weeks 1 Impairment Pain with functional activities Detention Goal (LTG) Pt will present with Oswestry LBP scale score to reflect no more than 10% impairment to allow safe return to work by . LTG Duration 8 weeks Assessment Summary Assessment Pt able to tolerate all new exercises except squats inc some L knee pain even with dec of range. He reported dec knee numbness after manual treatment today though and had improved hip motions after manual. Standing side step was difficult for pt and pt reproted fatigue. Physical Therapy Plan Frequency and Duration Frequency of Treatment 2x/Week Duration of Treatment 8 weeks Plan of Care Start Date 08/05/19 Plan of Care End Date 10/06/19 Next Visit Focus/Plan Next Note Type Treatment Note Next Visit Plan Consider diaphragmatic breathing, progress core stability as tolerated, work on neural tension, cont to work on iliacus & hip flexor
--- NOTE | 2019-09-03 13:47 | PT.OTN ---
Current Diagnoses Low back pain (09/03/19) Physical Therapy Treatment Note PT-OP-A Visit Information Start: 08/04/19 18:56 Freq: Status: Active Protocol: Document 09/03/19 13:01 [facility] (Rec: 09/03/19 13:46 [facility] [id number]) Out-Patient Physical Therapy Visit Information Visit Information Visit Start Time 13:00 Visit Stop Time 13:37 Total Visit Minutes 37 Visit Number Number of [employer]IC TEACHER Visits 0 PT-OP-B Current Condition Start: 08/04/19 18:56 Freq: Status: Active Protocol: Document 08/05/19 12:15 MB (Rec: 08/05/19 13:20 MB [id number]) Current Condition History of Current Condition Onset Date 07/14/19 Current Complaints Pt reports pain in left LB, anterior hip and numbness in anterior leg/knee History of Current Condition Pt states that he had a pinch in the back and then had cramping pain down his left leg to his knee and up to left LB. He went to the ED and received a shot and a muscle relaxer by mouth. He had two ED visits in two days because he could not get in with PCP who was out of the office. He had the least pain with lying on his stomach. Over the last 5 days, he reports improvement in pain. Pt rates pain as 4/10 in his left LB, SI, down the front of his left leg from the groin and down to knee, all dermatomes. He reports numbness over his left knee. Pt points to L3-4 dermatome area. He now has the least amount of pain lying on his back. He sleeps with a pillow under his left leg. He has to sit to put on pants. It hurts when he flexes his leg. 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 Pt also only has 24 units allowed per insurance PT-OP-C Subjective Start: 08/04/19 18:56 Freq: Status: Active Protocol: Document 09/03/19 13:01 [facility] (Rec: 09/03/19 13:46 [facility] [id number]) OP-PT Subjective Patient Comments Patient Comments Pt reports doing well with working and reports he did exercises 2x since last session. PT-OP-J Posture/Palpation/Skin Start: 08/04/19 18:56 Freq: Status: Active Protocol: Document 08/05/19 12:15 MB (Rec: 08/05/19 14:09 MB [id number]) Posture Evaluation Comments Posture Comments Standing: decreased cervical lordosis, upper thoracic kyphosis, Dowager's hump, mild anterior tilt pelvis, right scapular protraction and elevation, higher right iliac crest compared to the left. PT-OP-K Range of Motion Start: 08/04/19 18:56 Freq: Status: Active Protocol: Document 08/05/19 12:15 MB (Rec: 08/05/19 14:09 MB [id number]) Hip Goniometric Range of Motion Hip Left Passive Hip ROM WFL No Testing Position Supine Internal Rotation 10 External Rotation 30 Right Passive Hip ROM WFL No Testing Position Supine Internal Rotation 10 External Rotation 30 PT-OP-L Special Tests Start: 08/04/19 18:56 Freq: Status: Active Protocol: Document 08/05/19 12:15 MB (Rec: 08/05/19 14:09 MB [id number]) Special Tests Other Special Tests Special Tests Positive Slump on the left for left foot pain Positive Scour for left SI pain but no groin pain Left passive ER causes 5/10 pain B passive SLR limited: left 30 deg and right 45 deg PT-OP-M Strength Start: 08/04/19 18:56 Freq: Status: Active Protocol: Document 08/05/19 12:15 MB (Rec: 08/05/19 14:09 MB [id number]) Hip Strength Hip Manual Muscle Testing Left Flexion (L2) 2- Poor- Extension (S1) 2 Poor Abduction 2- Poor- Right Flexion (L2) 4 Good Extension (S1) 2+ Poor+ Abduction 2+ Poor+ Knee Strength Knee Manual Muscle Testing Left Flexion (S2) 4 Good Extension (L3) 3+ Fair+ Right Flexion (S2) 5 Normal Extension (L3) 5 Normal Ankle/Foot Strength Ankle and Foot Manual Muscle Testing Left Dorsiflexion (L4) 3+ Fair+ Comments Great toe extension 4/5 Right Dorsiflexion (L4) 5 Normal Comments Great toe extension 4/5 PT-OP-Q Treatments Start: 08/04/19 18:56 Freq: Status: Active Protocol: Document 09/03/19 13:01 [facility] (Rec: 09/03/19 13:46 [facility] [id number]) Therapeutic Exercises Supine Exercises diaphramatic breathing Reps/Minutes 8 Standing Exercises squat Side bilateral Equipment Used L2 tband around knees Comments 10 hip gutierrez Side bilateral Equipment Used 5lb B Reps/Minutes 10 sidestep Side bilateral Equipment Used Lvl 2 Reps/Minutes 20ft Manual Therapy Treatment Soft Tissue Mobilization adductors Body Location L Mobilization Type Rolling,Strumming Comments w/hip ER/IR Joint Mobilizations hip Joint L Direction ER FM PT-OP-R Modalities Start: 08/04/19 18:56 Freq: Status: Active Protocol: Document 08/07/19 15:22 [facility] (Rec: 08/07/19 18:32 [facility] [id number]) Hot Pack/Cold Pack Treatment Hot Pack Location LB Patient Position Hooklying Treatment Duration (minutes) 10 Patient Tolerance Good PT-OP-T Assessment and Plan Start: 08/04/19 18:56 Freq: Status: Active Protocol: Document 09/03/19 13:01 [facility] (Rec: 09/03/19 13:46 [facility] [id number]) Physical Therapy Assessment Goals 4 Supplier Development Manager Goal (LTG) Pt will perform progressive HEP including pelvic realignment, flexibility, strengthening and body mechanics and ergonomic training to improve safety with work by 10/06/2019. LTG Duration 8 weeks 3 Supplier Development Manager Goal (LTG) Pt will present with B hip flexion and abduction strength to at least 4/5 and B knee flexion and extension strength to 5/5 to improve transfers and activity by 10/06/2019. LTG Duration 8 weeks 2 Supplier Development Manager Goal (LTG) Pt will report a 75% improvement in left LB and hip pain to allow return to work by 10/06/2019. LTG Duration 8 weeks 1 Impairment Pain with functional activities Care Home Goal (LTG) Pt will present with Oswestry LBP scale score to reflect no more than 10% impairment to allow safe return to work by . LTG Duration 8 weeks Assessment Summary Assessment Min cueing today required for standing exercises. He has very signficant restricitons in adductors that likely contributes to his pain in that region. Physical Therapy Plan Frequency and Duration Frequency of Treatment 2x/Week Duration of Treatment 8 weeks Plan of Care Start Date 08/05/19 Plan of Care End Date 10/06/19 Next Visit Focus/Plan Next Note Type Treatment Note Next Visit Plan progress core stability & cont to work adductor release
--- NOTE | 2019-09-08 14:29 | PT.OTN ---
Current Diagnoses Low back pain (09/08/19) Physical Therapy Treatment Note PT-OP-A Visit Information Start: 08/04/19 18:56 Freq: Status: Active Protocol: Document 09/08/19 13:46 LR (Rec: 09/08/19 14:29 [facility] [id number]) Out-Patient Physical Therapy Visit Information Visit Information Visit Type Treatment Note Visit Start Time 13:46 Visit Stop Time 14:23 Total Visit Minutes 37 Visit Number Number of AGENT Visits 0 PT-OP-B Current Condition Start: 08/04/19 18:56 Freq: Status: Active Protocol: Document 08/05/19 12:15 MB (Rec: 08/05/19 13:20 MB [id number]) Current Condition History of Current Condition Onset Date 07/14/19 Current Complaints Pt reports pain in left LB, anterior hip and numbness in anterior leg/knee History of Current Condition Pt states that he had a pinch in the back and then had cramping pain down his left leg to his knee and up to left LB. He went to the ED and received a shot and a muscle relaxer by mouth. He had two ED visits in two days because he could not get in with PCP who was out of the office. He had the least pain with lying on his stomach. Over the last 5 days, he reports improvement in pain. Pt rates pain as 4/10 in his left LB, SI, down the front of his left leg from the groin and down to knee, all dermatomes. He reports numbness over his left knee. Pt points to L3-4 dermatome area. He now has the least amount of pain lying on his back. He sleeps with a pillow under his left leg. He has to sit to put on pants. It hurts when he flexes his leg. 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 Pt also only has 24 units allowed per insurance PT-OP-C Subjective Start: 08/04/19 18:56 Freq: Status: Active Protocol: Document 09/08/19 13:46 [facility] (Rec: 09/08/19 14:29 [facility] [id number]) OP-PT Subjective Patient Comments Patient Comments Pt has worked a lot and he has some knee pain and some L SI discomfort at end of shift. PT-OP-J Posture/Palpation/Skin Start: 08/04/19 18:56 Freq: Status: Active Protocol: Document 08/05/19 12:15 MB (Rec: 08/05/19 14:09 MB [id number]) Posture Evaluation Comments Posture Comments Standing: decreased cervical lordosis, upper thoracic kyphosis, Dowager's hump, mild anterior tilt pelvis, right scapular protraction and elevation, higher right iliac crest compared to the left. PT-OP-K Range of Motion Start: 08/04/19 18:56 Freq: Status: Active Protocol: Document 08/05/19 12:15 MB (Rec: 08/05/19 14:09 MB [id number]) Hip Goniometric Range of Motion Hip Left Passive Hip ROM WFL No Testing Position Supine Internal Rotation 10 External Rotation 30 Right Passive Hip ROM WFL No Testing Position Supine Internal Rotation 10 External Rotation 30 PT-OP-L Special Tests Start: 08/04/19 18:56 Freq: Status: Active Protocol: Document 08/05/19 12:15 MB (Rec: 08/05/19 14:09 MB [id number]) Special Tests Other Special Tests Special Tests Positive Slump on the left for left foot pain Positive Scour for left SI pain but no groin pain Left passive ER causes 5/10 pain B passive SLR limited: left 30 deg and right 45 deg PT-OP-M Strength Start: 08/04/19 18:56 Freq: Status: Active Protocol: Document 08/05/19 12:15 MB (Rec: 08/05/19 14:09 MB [id number]) Hip Strength Hip Manual Muscle Testing Left Flexion (L2) 2- Poor- Extension (S1) 2 Poor Abduction 2- Poor- Right Flexion (L2) 4 Good Extension (S1) 2+ Poor+ Abduction 2+ Poor+ Knee Strength Knee Manual Muscle Testing Left Flexion (S2) 4 Good Extension (L3) 3+ Fair+ Right Flexion (S2) 5 Normal Extension (L3) 5 Normal Ankle/Foot Strength Ankle and Foot Manual Muscle Testing Left Dorsiflexion (L4) 3+ Fair+ Comments Great toe extension 4/5 Right Dorsiflexion (L4) 5 Normal Comments Great toe extension 4/5 PT-OP-Q Treatments Start: 08/04/19 18:56 Freq: Status: Active Protocol: Document 09/08/19 13:46 [facility] (Rec: 09/08/19 14:29 [facility] [id number]) Therapeutic Exercises Supine Exercises march Supine Exercise Name scissors Side bilateral Reps/Minutes 15 Prone Exercises hip ext Prone Exercise Name alt Side bilateral Reps/Minutes 2x10 Manual Therapy Treatment Soft Tissue Mobilization hip flexor Body Location L Mobilization Type Strumming,Sustained Pressure Comments in zelalem test position Joint Mobilizations sacrum Joint UPA L & caudal FM innominiate Joint L Direction IR, ext FM hip Joint L Direction IR FM PT-OP-R Modalities Start: 08/04/19 18:56 Freq: Status: Active Protocol: Document 08/07/19 15:22 [facility] (Rec: 08/07/19 18:32 [facility] [id number]) Hot Pack/Cold Pack Treatment Hot Pack Location LB Patient Position Hooklying Treatment Duration (minutes) 10 Patient Tolerance Good PT-OP-T Assessment and Plan Start: 08/04/19 18:56 Freq: Status: Active Protocol: Document 09/08/19 13:46 [facility] (Rec: 09/08/19 14:29 [facility] [id number]) Physical Therapy Assessment Goals 4 Professor Of Environmental Studies Goal (LTG) Pt will perform progressive HEP including pelvic realignment, flexibility, strengthening and body mechanics and ergonomic training to improve safety with work by 10/06/2019. LTG Duration 8 weeks 3 Jail Goal (LTG) Pt will present with B hip flexion and abduction strength to at least 4/5 and B knee flexion and extension strength to 5/5 to improve transfers and activity by 10/06/2019. LTG Duration 8 weeks 2 Professor Of Environmental Studies Goal (LTG) Pt will report a 75% improvement in left LB and hip pain to allow return to work by 10/06/2019. LTG Duration 8 weeks 1 Impairment Pain with functional activities Professor Of Environmental Studies Goal (LTG) Pt will present with Oswestry LBP scale score to reflect no more than 10% impairment to allow safe return to work by . LTG Duration 8 weeks Assessment Summary Assessment Pt had greater ease of movement into IR & ext after manual treatment. AFter faciliation manually of hip ext and mnaul mobilizations hip ext on L improved from 3+/ 5 to a 5/5 strength. he was given that for HEP. Physical Therapy Plan Frequency and Duration Frequency of Treatment 2x/Week Duration of Treatment 8 weeks Plan of Care Start Date 08/05/19 Plan of Care End Date 10/06/19 Next Visit Focus/Plan Next Note Type Treatment Note Next Visit Plan progress core stability & cont to work adductor release
--- NOTE | 2019-09-16 14:08 | PT-OP ANOTE ---
Pt no showed appt. Called and reminded about next appt via VM.
--- NOTE | 2019-09-23 17:10 | PT.OPDS ---
Current Diagnoses Low back pain (09/08/19) Visit Care Team Role Provider Type Grady Arora MD Primary Care Provider Physician Specialty: Family Practice Address: [address] [place] [address], [id number] Email: [email or web address] MONTY Garcia Attending Provider Advanced [employer] Ministry Director Specialty: [facility] Practice Address: [address] [place] [address], [id number] Email: [email or web address] Visit Number Visit Number Discharge Summary PT-OP-B Current Condition Start: 08/04/19 18:56 Freq: Status: Active Protocol: Document 08/05/19 12:15 MB (Rec: 08/05/19 13:20 MB [id number]) Current Condition History of Current Condition Onset Date 07/14/19 Current Complaints Pt reports pain in left LB, anterior hip and numbness in anterior leg/knee History of Current Condition Pt states that he had a pinch in the back and then had cramping pain down his left leg to his knee and up to left LB. He went to the ED and received a shot and a muscle relaxer by mouth. He had two ED visits in two days because he could not get in with PCP who was out of the office. He had the least pain with lying on his stomach. Over the last 5 days, he reports improvement in pain. Pt rates pain as 4/10 in his left LB, SI, down the front of his left leg from the groin and down to knee, all dermatomes. He reports numbness over his left knee. Pt points to L3-4 dermatome area. He now has the least amount of pain lying on his back. He sleeps with a pillow under his left leg. He has to sit to put on pants. It hurts when he flexes his leg. 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 Pt also only has 24 units allowed per insurance PT-OP-C Subjective Start: 08/04/19 18:56 Freq: Status: Active Protocol: Document 09/08/19 13:46 LR (Rec: 09/08/19 14:29 LR [id number]) OP-PT Subjective Patient Comments Patient Comments Pt has worked a lot and he has some knee pain and some L SI discomfort at end of shift. PT-OP-J Posture/Palpation/Skin Start: 08/04/19 18:56 Freq: Status: Active Protocol: Document 08/05/19 12:15 MB (Rec: 08/05/19 14:09 MB [id number]) Posture Evaluation Comments Posture Comments Standing: decreased cervical lordosis, upper thoracic kyphosis, Dowager's hump, mild anterior tilt pelvis, right scapular protraction and elevation, higher right iliac crest compared to the left. PT-OP-K Range of Motion Start: 08/04/19 18:56 Freq: Status: Active Protocol: Document 08/05/19 12:15 MB (Rec: 08/05/19 14:09 MB [id number]) Hip Goniometric Range of Motion Hip Left Passive Hip ROM WFL No Testing Position Supine Internal Rotation 10 External Rotation 30 Right Passive Hip ROM WFL No Testing Position Supine Internal Rotation 10 External Rotation 30 PT-OP-L Special Tests Start: 08/04/19 18:56 Freq: Status: Active Protocol: Document 08/05/19 12:15 MB (Rec: 08/05/19 14:09 MB [id number]) Special Tests Other Special Tests Special Tests Positive Slump on the left for left foot pain Positive Scour for left SI pain but no groin pain Left passive ER causes 5/10 pain B passive SLR limited: left 30 deg and right 45 deg PT-OP-M Strength Start: 08/04/19 18:56 Freq: Status: Active Protocol: Document 08/05/19 12:15 MB (Rec: 08/05/19 14:09 MB [id number]) Hip Strength Hip Manual Muscle Testing Left Flexion (L2) 2- Poor- Extension (S1) 2 Poor Abduction 2- Poor- Right Flexion (L2) 4 Good Extension (S1) 2+ Poor+ Abduction 2+ Poor+ Knee Strength Knee Manual Muscle Testing Left Flexion (S2) 4 Good Extension (L3) 3+ Fair+ Right Flexion (S2) 5 Normal Extension (L3) 5 Normal Ankle/Foot Strength Ankle and Foot Manual Muscle Testing Left Dorsiflexion (L4) 3+ Fair+ Comments Great toe extension 4/5 Right Dorsiflexion (L4) 5 Normal Comments Great toe extension 4/5 PT-OP-T Assessment and Plan Start: 08/04/19 18:56 Freq: Status: Active Protocol: Document 09/23/19 17:09 MB (Rec: 09/23/19 17:09 MB [id number]) Physical Therapy Plan Discharge Physical Therapy Discharge Reasons No Longer Attending PT Discharge Comments Pt cancelled two appointments and no show last appointment. PT left message on pt's phone. Discharge PT.
== END 2019-09-26 08:19 ==
LOC: PHYS 13:45
PROVIDERS: PCP Family Medicine; Visit Provider Nurse Practitioner Family
DX: M54.5 Low back pain (principal)
CPT/HCPCS: 97110; 97112; 97140; 97161

== ENCOUNTER 2019-12-18 09:21 | Emergency (ER) | payer OTHER, MEDICAID, SELFPAY ==
[2019-12-18 09:34] VITALS: BP 139/71; PULSE 82; RESP 18; TEMP 36.8; O2SAT 98; BMI 34.2
--- NOTE | 2019-12-18 10:53 | DI.RAD.S_ITS ---
PROCEDURE: XR CHEST 1V INDICATIONS: SOB, cough TECHNIQUE: One view of the chest was acquired. COMPARISON: [facility], CR, XR CHEST 1V, 05/12/2019, 1:23. FINDINGS: Surgical changes and devices: None. Lungs and pleura: Lungs are clear. No pleural effusions or pneumothorax. Mediastinum: Mediastinal contours appear normal. Heart size is normal. Bones and chest wall: No suspicious bony lesions. Overlying soft tissues appear unremarkable. IMPRESSION: No acute cardiopulmonary pathology. Dictated by: Kavon Swift M.D. on 12/18/2019 at 11:30 Approved by: Kavon Swift M.D. on 12/18/2019 at 11:30
--- NOTE | 2019-12-18 11:10 | ED_ITS ---
HPI - Anxiety General Chief Complaint: Anxiety Stated Complaint: anxiety attack/ sob/ tremor Time Seen by Provider: 12/18/19 10:42 Source: patient Mode of arrival: Ambulatory History of Present Illness HPI narrative: CC SOB, Cough, LLQ abdominal Pain HPI: The patient questionably thought that he was having a panic attack. He woke up and felt very short of breath. He had a body tremor in for short time period his own tire body felt cold and freezing. He felt like his own tire body was numb especially in his hands. He had a mild headache that was generalized but did not feel lightheaded. He did not feel dizzy as though he was going to pass out. He had an annoyance with mild abdominal cramps in his left lower quadrant. He had some loose stools this morning without any blood or mucus. He denies a history of Crohn's disease or ulcerative colitis or irritable bowel syndrome. He has had his appendix removed. He denied any back pain. He states that he just felt anxious. At the present time he is not working because of [employer]. He denies being depressed. 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 He denies a history of asthma hypertension diabetes mellitus heart murmur and congenital heart disease. He does not smoke cigarettes he drinks alcohol with his last drink being last night. He uses marijuana oil. Related Data Home Medications Medication Instructions Recorded Confirmed multivitamin 1 tab PO DAILY 10/02/18 09/02/19 Previous Rx's Medication Instructions Recorded cyclobenzaprine 10 mg tablet 10 mg PO TID #60 tab 07/25/19 naproxen 500 mg tablet 500 mg PO BID #60 tab 07/25/19 dextroamphetamine 10 mg 10 mg PO DAILY #30 cap 09/02/19 capsule,extended release paroxetine HCl 20 mg tablet 20 mg PO BID #180 tab 09/02/19 dextroamphetamine-amphetamine 20 20 mg PO BID #60 tab 12/05/19 mg tablet dicyclomine 20 mg PO TID PRN #10 tab 12/18/19 lorazepam [Ativan] 0.5 mg PO BID PRN #8 tab 12/18/19 Allergies Allergy/AdvReac Type Severity Reaction Status Date / Time ciprofloxacin [From CIPRO] Allergy Mild MUSCLE/JOINT Verified 09/02/19 10:11 PAIN &SWELLING Review of Systems Review of Systems Narrative: REVIEW OF SYSTEMS: CONSTITUTIONAL: He denies any fever or sweats but has had chills in the form that his body felt freezing for brief time. NEUROLOGICAL: He has had a mild headache but no numbness tingling paresthesias anesthesia is paresis or paralysis. EENT: He has chronic sinus congestion and nasal drainage blood no sore throat or dysphagia. He has had no change in his vision. CARDIO-PULMONARY: He has had some shortness of breath with some cough secondary to his postnasal drainage which she thinks is secondary to allergies. GASTROINTESTINAL: He has had some left lower quadrant abdominal pain but has had no nausea or vomiting. He has had diarrhea without melena or hematochezia. GENITAL URINARY: He has had no urinary symptoms. MUSCULOSKELETAL/ RHEUMATOLOGICAL: He denies any back pain. Patient History Medical History Anxiety (Chronic) Chicken pox (Resolved ~1991) Depression (Chronic ~1997) No significant medical problems (Acute) Surgical History Anesthesia (Resolved) Status post appendectomy (~2011) Family History Mother Age: 58 Bipolar affective disorder, current episode mixed, current episode severity unspecified Grandfather Heart disease High cholesterol Cerebrovascular accident (CVA), unspecified mechanism Grandmother No problems noted. Social History Smoking Status: Never smoker alcohol intake: former substance use type: does not use Smoking Status: Never smoker alcohol intake frequency: a few times a week Alcohol type: beer Substance Use Type: marijuana Exam Narrative Exam Narrative: PHYSICAL EXAM: CONSTITUTIONAL: Awake, Alert, Oriented, Coherent, Cooperative in NAD. Does not appear toxic or ill. HEAD: AT/NC EENT: PERRL, FROM of eyes, no discharge, no nystagmus NOSE:No epistaxis or nasal drainage MOUTH:Oral mucosa is moist and pink, posterior pharynx is without erythema or exudate. NECK: Supple, no obvious JVD, Trachea is midline without stridor, no palpable LN. SPINE: Palpationof the cervical, Thoracic, Lumbar or Sacral spine reveals no gross deformity or tenderness. No CVA tenderness. THORAX: No deformity, retractions, chest wall tenderness. LUNGS: Clear, symmetrical breath sounds without respiratory distress. HEART: Normal heart tones, regular rhythm and rate without murmur. ABDOMEN: Soft, non-tender, without guarding, rebound, rigidity or palpable mass. LYMPHATIC: no palpable spleen. EXTREMITIES: No edema, deformity, tenderness or cyanosis. SKIN: No rash, bruising, petechiae or purpura. NEURO: Awake, alert, oriented, conversive, cranial nerves II-XII are symmetrical , moves all 4 extremities and is ambulatory. Initial Vital Signs Initial Vital Signs: Vital Signs Temperature 98.2 F 12/18/19 09:34 Pulse Rate 82 12/18/19 09:34 Respiratory Rate 18 12/18/19 09:34 Blood Pressure 139/71 12/18/19 09:34 Pulse Oximetry 98 12/18/19 09:34 Course Course Course Narrative: 1256: CXR negative Orders Ordered: Discontinued Medications Dicyclomine HCl (Bentyl) 20 mg PO NOW ONE Stop: 12/18/19 10:56 Last Admin: 12/18/19 11:12 Dose: 20 mg Documented by: BOOGIE Lorazepam (Ativan) 1 mg PO NOW ONE Stop: 12/18/19 10:56 Last Admin: 12/18/19 11:12 Dose: 1 mg Documented by: BOOGIE Vital Signs Vital signs: Vital Signs - 8 hr 12/18/19 09:34 Temperature 98.2 F Pulse Rate 82 Respiratory Rate 18 Blood Pressure 139/71 Pulse Oximetry 98 MDM - Anxiety Lab Data Result diagrams: 12/18/19 11:10 12/18/19 11:10 Labs: Lab Results 12/18/19 12/18/19 Range/Units 11:10 11:10 WBC 6.0 (4.5-11.0) X10^3/uL RBC 4.36 L (4.5-5.9) X10^6/uL Hgb 14.1 (13.5-17.5) g/dL Hct 40.5 L (41-53) % MCV 92.8 (80-100) fL MCH 32.3 (26-34) PG MCHC 34.8 (30-36) % RDW 13.5 (11.6-14.8) % Plt Count 192 (150-400) X10^3/uL Neut % (Auto) 67.4 (50-75) % Lymph % (Auto) 19.6 L (25-40) % [place] % (Auto) 10.8 (3-14) % Eos % (Auto) 1.4 L (2-4) % Baso % (Auto) 0.8 (0-2) % Neut # (Auto) 4000 (9527-0637) /uL Lymph # (Auto) 1200 (2724-4374) /uL [place] # (Auto) 600 (0-900) /uL Eos # (Auto) 100 (0-450) /uL Baso # (Auto) 0 (0-100) /uL Sodium 137 (137-145) mmol/L Potassium 4.5 (3.4-5.1) mmol/L Chloride 103 (98-107) mmol/L Carbon Dioxide 27 (22-32) mmol/L BUN 15 (9-20) mg/dL Creatinine 1.00 (0.66-1.25) mg/dL Estimated GFR > 60.0 (>60) mL/min BUN/Creatinine Ratio 15.0 (6-22) Glucose 104 H (70-100) mg/dL Calcium 9.2 (8.4-10.2) mg/dL Total Bilirubin 0.4 (0.2-1.3) mg/dL AST 45 (17-59) IU/L ALT 69 H (<50) IU/L Alkaline Phosphatase 76 (38-126) U/L Troponin I < 0.012 (0.01-0.034) ng/mL Total Protein 7.5 (6.3-8.2) g/dL Albumin 4.6 (3.5-5.0) g/dL Globulin 2.9 (1.7-4.1) g/dL Albumin/Globulin Ratio 1.6 (1.0-2.8) Lipase 137 (23-300) U/L Discharge Plan Departure Patient Disposition: Home Clinical Impression: Anxiety, Breath, shortness, Abdominal cramping Discharge Date/Time: 12/18/19 13:19 Instructions: Anxiety and Panic Attacks (Alternative Therapy), DI for Abdominal Pain-Adult, DI for Anxiety -- Adult Activity Restrictions/Additional Instructions: 1. Follow-up with your primary care physician. 2. Your shortness of breath is secondary to urines I 80. Chest x-ray was negative for any acute pathology. There is no evidence of any heart trouble or pulmonary problems. 3. For abdominal cramps use the Bentyl as necessary. If you are not having any abdominal cramps do not use the Bentyl. 4. Use the Ativan as prescribed as a rescue medicine for acute panic attacks. Follow-up with your primary care physician to evaluate your anxiety attacks. Prescriptions: New dicyclomine 20 mg tablet 20 mg PO TID PRN (Reason: abdominal cramps) Qty: 10 RF: 0 lorazepam [Ativan] 0.5 mg tablet 0.5 mg PO BID PRN (Reason: anxiety) Qty: 8 RF: 0 No Action multivitamin tablet 1 tab PO DAILY RF: 0 dextroamphetamine-amphetamine [Adderall] 20 mg tablet 20 mg PO BID Qty: 60 RF: 0 naproxen 500 mg tablet 500 mg PO BID Qty: 60 RF: 0 cyclobenzaprine 10 mg tablet 10 mg PO TID Qty: 60 RF: 0 paroxetine HCl 20 mg tablet 20 mg PO BID Qty: 180 RF: 0 dextroamphetamine 10 mg capsule, extended release 10 mg PO DAILY Qty: 30 RF: 0 Referrals: Grady Arora MD [Primary Care Provider] -
[2019-12-18] MEDS: LORazepam 0.5 MG TABLET 1 MG PO (11:12)
[2019-12-18] MEDS: DICYCLOMINE 10 MG CAPSULE 20 MG PO (11:12)
[2019-12-18 11:22] LABS: Add Manual Diff / Slide Review NO; Basophils Absolute Auto 0 /uL (0-100); Basophils Percent Auto 0.8 % (0-2); Eosinophils Absolute Auto 100 /uL (0-450); Eosinophils Percent Auto 1.4 % (2-4); Hematocrit 40.5 % (41-53); Hemoglobin 14.1 g/dL (13.5-17.5); Lymphocytes Absolute Auto 1200 /uL (1100-4500); Lymphocytes Percent Auto 19.6 % (25-40); Mean Corpuscular HGB Conc 34.8 % (30-36); Mean Corpuscular Hemoglobin 32.3 PG (26-34); Mean Corpuscular Volume 92.8 fL (80-100); Monocytes Absolute Auto 600 /uL (0-900); Monocytes Percent Auto 10.8 % (3-14); Neutrophils Absolute Auto 4000 /uL (1500-7000); Neutrophils Percent Auto 67.4 % (50-75); Platelet Count 192 X10^3/uL (150-400); Red Blood Cell Count 4.36 X10^6/uL (4.5-5.9); Red Cell Distribution Width 13.5 % (11.6-14.8)
[2019-12-18 11:44] LABS: Alanine Aminotransferase 69 IU/L (<50); Albumin 4.6 g/dL (3.5-5.0); Albumin Globulin Ratio 1.6 (1.0-2.8); Alkaline Phosphatase 76 U/L (38-126); Aspartate Aminotransferase 45 IU/L (17-59); Bilirubin Total 0.4 mg/dL (0.2-1.3); Blood Urea Nitrogen 15 mg/dL (9-20); Calcium 9.2 mg/dL (8.4-10.2); Carbon Dioxide 27 mmol/L (22-32); Chloride 103 mmol/L (98-107); Estimated Glomerular Filt Rate > 60.0 mL/min (>60); Globulin 2.9 g/dL (1.7-4.1); Glucose 104 mg/dL (70-100); HEMOLYSIS 16 (0-50); Lipase 137 U/L (23-300); Potassium 4.5 mmol/L (3.4-5.1); Sodium 137 mmol/L (137-145); Total Protein 7.5 g/dL (6.3-8.2)
[2019-12-18 11:56] LABS: Troponin I < 0.012 ng/mL (0.01-0.034)
[2019-12-18 13:10] VITALS: BP 126/84; PULSE 88; RESP 19; O2SAT 98
== END 2019-12-18 13:19 | disposition home or self-care (01) ==
PROVIDERS: Emergency Provider Emergency Medicine; PCP Family Medicine
DX: F41.0 Panic disorder [episodic paroxysmal anxiety] (principal); R06.02 Shortness of breath; R10.9 Unspecified abdominal pain; R05 Cough
CPT/HCPCS: 36415; 71045; 80053; 83690; 84484; 85025; 93005; 93010; 99283; 99284

== ENCOUNTER → 2020-07-05 14:23 | Outpatient (CLI) | payer OTHER, MEDICAID, SELFPAY ==
[2020-07-05 14:59] LABS: Add Manual Diff / Slide Review NO; Basophils Absolute Auto 100 /uL (0-100); Basophils Percent Auto 0.7 % (0-2); Eosinophils Absolute Auto 200 /uL (0-450); Eosinophils Percent Auto 2.1 % (2-4); Hematocrit 40.5 % (41-53); Hemoglobin 13.7 g/dL (13.5-17.5); Lymphocytes Absolute Auto 1300 /uL (1100-4500); Lymphocytes Percent Auto 16.1 % (25-40); Mean Corpuscular HGB Conc 33.9 % (30-36); Mean Corpuscular Hemoglobin 31.7 PG (26-34); Mean Corpuscular Volume 93.4 fL (80-100); Monocytes Absolute Auto 700 /uL (0-900); Monocytes Percent Auto 8.4 % (3-14); Neutrophils Absolute Auto 5900 /uL (1500-7000); Neutrophils Percent Auto 72.7 % (50-75); Platelet Count 213 X10^3/uL (150-400); Red Blood Cell Count 4.34 X10^6/uL (4.5-5.9); Red Cell Distribution Width 13.7 % (11.6-14.8); White Blood Cell Count 8.1 X10^3/uL (4.5-11.0)
[2020-07-05 15:12] LABS: Alanine Aminotransferase 62 IU/L (<50); Albumin 4.7 g/dL (3.5-5.0); Albumin Globulin Ratio 1.5 (1.0-2.8); Alkaline Phosphatase 82 U/L (38-126); Aspartate Aminotransferase 43 IU/L (17-59); BUN Creatinine Ratio 17.9 (6-22); Bilirubin Total 0.6 mg/dL (0.2-1.3); Blood Urea Nitrogen 17 mg/dL (9-20); Calcium 9.7 mg/dL (8.4-10.2); Carbon Dioxide 29 mmol/L (22-32); Chloride 101 mmol/L (98-107); Estimated Glomerular Filt Rate > 60.0 mL/min (>60); Globulin 3.1 g/dL (1.7-4.1); Glucose 104 mg/dL (70-100); HEMOLYSIS < 15 (0-50); Potassium 4.8 mmol/L (3.4-5.1); Sodium 136 mmol/L (137-145); Total Protein 7.8 g/dL (6.3-8.2)
== END ==
PROVIDERS: PCP Family Medicine; Referring Provider Physician Assistant; Visit Provider Physician Assistant
DX: M25.429 Effusion, unspecified elbow (principal)
CPT/HCPCS: 36415; 80053; 85025

== ENCOUNTER 2020-10-21 09:22 | Emergency (ER) | payer OTHER, MEDICAID, SELFPAY ==
--- NOTE | 2020-10-21 09:27 | DI.RAD.S_ITS ---
PROCEDURE: XR CHEST 1V INDICATIONS: Chest pain TECHNIQUE: One view of the chest was acquired. COMPARISON: [facility], CR, XR CHEST 1V, 12/18/2019, 11:21. [facility], CR, XR CHEST 1V, 05/12/2019, 1:23. FINDINGS: Surgical changes and devices: None. Lungs and pleura: Lungs are clear. No pleural effusions or pneumothorax. Mediastinum: Mediastinal contours appear normal. Heart size is normal. Bones and chest wall: No suspicious bony lesions. Overlying soft tissues appear unremarkable. IMPRESSION: Normal for age, source of current chest pain symptoms is not seen. Dictated by: Joshua Kirk M.D. on 10/21/2020 at 10:40 Approved by: Joshua Kirk M.D. on 10/21/2020 at 10:40
[2020-10-21 09:30] VITALS: BP 143/84; PULSE 87; RESP 16; TEMP 37.3; O2SAT 98; BMI 33.5
--- NOTE | 2020-10-21 09:46 | ED_ITS ---
HPI - Chest Pain General Chief Complaint: Chest Pain Stated Complaint: woke up with chest pain, shooting down left arm Time Seen by Provider: 10/21/20 09:27 Source: patient Mode of arrival: Ambulatory Limitations: no limitations History of Present Illness HPI narrative: Patient is a 35-year-old otherwise healthy male that does have a history of anxiety and panic attacks was here for evaluation of left-sided chest discomfort that he states is radiating down his left arm. He woke with it this morning. He woke up 2 hours ago. He has never had anything like this in the past. Has not tried anything for it. He states that it does make it somewhat worse with taking a deep breath but not with moving his arm or touching his chest. Describes it as a sharp/pressure sensation. Related Data Home Medications Medication Instructions Recorded Confirmed multivitamin 1 tab PO DAILY 10/02/18 10/15/20 Previous Rx's Medication Instructions Recorded dextroamphetamine 10 mg 10 mg PO DAILY #60 cap 10/15/20 capsule,extended release dextroamphetamine-amphetamine 20 20 mg PO BID #120 tab 10/15/20 mg tablet paroxetine HCl 20 mg tablet 20 mg PO BID #180 tab 10/15/20 Allergies Allergy/AdvReac Type Severity Reaction Status Date / Time ciprofloxacin [From CIPRO] Allergy Mild MUSCLE/JOINT Verified 10/21/20 09:33 PAIN &SWELLING Review of Systems Constitutional Constitutional: Denies fever(s) and Denies headache(s) ENT Ears, Nose, Mouth, and Throat: Denies vertigo, Denies dizziness and Denies headache(s) Cardiovascular Cardiovascular: Reports chest pain, Denies syncope, Denies rapid heart rate, Denies irregular heart rhythm, Denies dyspnea and Denies dyspnea on exertion Respiratory Respiratory: Denies cough, Denies dyspnea and Denies dyspnea on exertion Gastrointestinal Gastrointestinal: Denies abdominal pain, Denies nausea and Denies vomiting Genitourinary Genitourinary: Denies dysuria Genitourinary: Denies dysuria Musculoskeletal Musculoskeletal: Denies arthralgias and Denies myalgias Integumentary/Breasts Skin/Breast: Denies rash Neurologic Neurologic: Denies vertigo, Denies dizziness, Denies syncope and Denies headache(s) Hematologic/Lymphatic On Anticoagulants: No Allergic/Immunologic Allergic/Immunologic: Denies urticaria Patient History Medical History Anxiety Chicken pox (~1991) Depression (~1997) Erythema multiforme Foot pain No significant medical problems Strep pharyngitis Swelling of elbow Surgical History Anesthesia Status post appendectomy (~2011) Family History Mother Age: 59 Bipolar affective disorder, current episode mixed, current episode severity unspecified Grandfather Heart disease High cholesterol Cerebrovascular accident (CVA), unspecified mechanism Grandmother No problems noted. Social History Smoking Status: Never smoker alcohol intake: former substance use type: does not use Smoking Status: Never smoker alcohol intake frequency: a few times a week Alcohol type: beer Substance Use Type: marijuana Exam Initial Vital Signs Initial Vital Signs: Vital Signs Temperature 99.2 F 10/21/20 09:30 Pulse Rate 87 10/21/20 09:30 Respiratory Rate 16 10/21/20 09:30 Blood Pressure 143/84 H 10/21/20 09:30 Pulse Oximetry 98 10/21/20 09:30 Const General: cooperative and comfortable Limitations: mental status not altered HENMT Head: normal to inspection and normocephalic Chest Chest: No crepitus and No tenderness Resp Effort & Inspection: normal respiratory effort Auscultation: clear to auscultation bilaterally Cardio Rate: regular rate Rhythm: regular rhythm GI Inspection: non-distended Palpation: soft Skin Lesions: no lesions Rashes: no rashes Neuro General: patient alert and patient awake Cognition: normal cognition Speech: speech normal Extrem General: normal to inspection and capillary refill normal Psych Appearance: grossly normal and well kempt Scores HEART Score Heart Score history: Slightly Suspicious Heart Score EKG: Normal Heart Score Age: < 45 years old Heart Score risk factors: No known risk factors Heart Score troponin: < or = to normal limit Heart Score Total: 0 Course Orders Ordered: ED Orders 10/21/20 09:27 XR chest 1V Stat 10/21/20 09:29 EKG-12 Lead Stat 10/21/20 09:58 Basic Metabolic Panel Stat Complete Blood Count AUTO DIFF Stat Troponin I Stat Vital Signs Vital signs: Vital Signs - 8 hr 10/21/20 09:30 Temperature 99.2 F Pulse Rate 87 Respiratory Rate 16 Blood Pressure 143/84 H Pulse Oximetry 98 MDM - Chest Pain Lab Data Attestation: I reviewed the patient's lab results. Result diagrams: 10/21/20 09:58 10/21/20 09:58 Labs: Lab Results 10/21/20 10/21/20 Range/Units 09:58 09:58 WBC 16.4 H (4.5-11.0) X10^3/uL RBC 4.46 L (4.5-5.9) X10^6/uL Hgb 14.0 (13.5-17.5) g/dL Hct 40.9 L (41-53) % MCV 91.6 (80-100) fL MCH 31.3 (26-34) PG MCHC 34.2 (30-36) % RDW 13.6 (11.6-14.8) % Plt Count 200 (150-400) X10^3/uL Neut % (Auto) 85.6 H (50-75) % Lymph % (Auto) 6.7 L (25-40) % [place] % (Auto) 7.3 (3-14) % Eos % (Auto) 0.2 L (2-4) % Baso % (Auto) 0.2 (0-2) % Neut # (Auto) 85046 H (9903-6769) /uL Lymph # (Auto) 1100 (3057-0217) /uL [place] # (Auto) 1200 H (0-900) /uL Eos # (Auto) 0 (0-450) /uL Baso # (Auto) 0 (0-100) /uL Sodium 137 (137-145) mmol/L Potassium 4.0 (3.4-5.1) mmol/L Chloride 98 (98-107) mmol/L Carbon Dioxide 29 (22-32) mmol/L BUN 9 (9-20) mg/dL Creatinine 0.93 (0.66-1.25) mg/dL Estimated GFR > 60.0 (>60) mL/min BUN/Creatinine Ratio 9.7 (6-22) Glucose 118 H (70-100) mg/dL Calcium 9.2 (8.4-10.2) mg/dL Troponin I < 0.012 (0.01-0.034) ng/mL Imaging Data Chest x-ray: Radiologist's Impression: [facility] [place] [id number] ReportSigned Patient: Abdirizak Ricci BMR#: [id number]: 1985Acct:[id number]/Sex: 35 / MDate of Service: 10/21/20Loc: EDAccession Number: [id number] Procedure: XR chest 1V Ordering Provider: Bernard Du D.O. PROCEDURE: XR CHEST 1V INDICATIONS: Chest pain TECHNIQUE: One view of the chest was acquired. COMPARISON: [facility], CR, XR CHEST 1V, 12/18/2019, 11:21. [facility], CR, XR CHEST 1V, 05/12/2019, 1:23. FINDINGS: Surgical changes and devices: None. Lungs and pleura: Lungs are clear. No pleural effusions or pneumothorax. Mediastinum: Mediastinal contours appear normal. Heart size is normal. Bones and chest wall: No suspicious bony lesions. Overlying soft tissues ap pear unremarkable. IMPRESSION: Normal for age, source of current chest pain symptoms is not seen. Dictated by: Joshua Kirk M.D. on 10/21/2020 at 10:40 Approved by: Joshua Kirk M.D. on 10/21/2020 at 10:40 ECG Data Attestation: I personally reviewed and interpreted this ECG as follows: Prior ECG tracings: not available for review Interpretation: Sinus rhythm Ventricular rate of 66 Normal axis Normal QRS Normal QTC Occasional PACs No ST T wave changes MDM Narrative Medical decision making narrative: Patient does have a low risk heart score. His EKG is unremarkable. His chest x-ray is unremarkable. He does have a leukocytosis however there is no findings of any infection. No indication for antibiotics. I feel we can hold on further workup for now. This very well could be anxiety related. He was given return precautions and follow-up instructions. He expressed understanding and agreement. Discharge Plan Departure Patient Disposition: Home Clinical Impression: Atypical chest pain Instructions: DI for Atypical Chest Pain Activity Restrictions/Additional Instructions: Continue all of your medications as directed. Contact your primary provider for follow-up. Return to the emergency department for any new or worsening symptoms Prescriptions: No Action multivitamin tablet 1 tab PO DAILY RF: 0 dextroamphetamine 10 mg capsule, extended release 10 mg PO DAILY Qty: 60 RF: 0 dextroamphetamine-amphetamine [Adderall] 20 mg tablet 20 mg PO BID Qty: 120 RF: 0 paroxetine HCl 20 mg tablet 20 mg PO BID Qty: 180 RF: 3 Referrals: Cyrus Alfredo MD [Primary Care Provider] -
[2020-10-21 10:09] LABS: Add Manual Diff / Slide Review NO; Basophils Absolute Auto 0 /uL (0-100); Basophils Percent Auto 0.2 % (0-2); Eosinophils Absolute Auto 0 /uL (0-450); Eosinophils Percent Auto 0.2 % (2-4); Hematocrit 40.9 % (41-53); Lymphocytes Absolute Auto 1100 /uL (1100-4500); Lymphocytes Percent Auto 6.7 % (25-40); Mean Corpuscular HGB Conc 34.2 % (30-36); Mean Corpuscular Hemoglobin 31.3 PG (26-34); Mean Corpuscular Volume 91.6 fL (80-100); Monocytes Absolute Auto 1200 /uL (0-900); Monocytes Percent Auto 7.3 % (3-14); Neutrophils Absolute Auto 14000 /uL (1500-7000); Neutrophils Percent Auto 85.6 % (50-75); Platelet Count 200 X10^3/uL (150-400); Red Blood Cell Count 4.46 X10^6/uL (4.5-5.9); Red Cell Distribution Width 13.6 % (11.6-14.8); White Blood Cell Count 16.4 X10^3/uL (4.5-11.0)
[2020-10-21 10:16] LABS: BUN Creatinine Ratio 9.7 (6-22); Blood Urea Nitrogen 9 mg/dL (9-20); Calcium 9.2 mg/dL (8.4-10.2); Carbon Dioxide 29 mmol/L (22-32); Chloride 98 mmol/L (98-107); Estimated Glomerular Filt Rate > 60.0 mL/min (>60); Glucose 118 mg/dL (70-100); HEMOLYSIS < 15 (0-50); Sodium 137 mmol/L (137-145)
[2020-10-21 10:28] LABS: Troponin I < 0.012 ng/mL (0.01-0.034)
[2020-10-21 10:49] VITALS: BP 143/84; PULSE 60; RESP 14; O2SAT 95
== END 2020-10-21 10:51 | disposition home or self-care (01) ==
PROVIDERS: Emergency Provider Emergency Medicine; PCP Family Medicine
DX: R07.89 Other chest pain (principal)
CPT/HCPCS: 36415; 71045; 80048; 84484; 85025; 93005; 99283; 99284

== ENCOUNTER → 2020-11-08 12:50 | Outpatient (CLI) | payer OTHER, MEDICAID, SELFPAY ==
[2020-11-08 14:12] LABS: Hemoglobin A1C% w Est Avg Glu 5.3 % (4.0-6.0)
[2020-11-08 14:41] LABS: Urine N gonorrhoeae NOT DETECTED
[2020-11-08 15:24] LABS: Urine Chlamydia NOT DETECTED
[2020-11-08 16:07] LABS: Cholesterol 288 mg/dL (140-199); HDL Cholesterol 51 mg/dL (40-60); LDL Cholesterol Calculated 172 mg/dL (<100); Triglycerides 325 mg/dL (35-150)
[2020-11-08 16:40] LABS: HIV 1 & 2 Ab/Ag 4th Gen Combo NEGATIVE (NEGATIVE)
[2020-11-09 05:38] LABS: HBsAg Screen Negative (Negative); Hepatitis A Antibody IgM Negative (Negative); Hepatitis B Core Antibody IgM Negative (Negative); Hepatitis C Antibody <0.1 s/co ratio (0.0-0.9)
[2020-11-09 06:09] LABS: RPR Screen Non Reactive (Non Reactive)
== END ==
PROVIDERS: PCP Family Medicine; Referring Provider Family Medicine; Visit Provider Family Medicine
DX: E78.5 Hyperlipidemia, unspecified (principal); F33.9 Major depressive disorder, recurrent, unspecified; F41.9 Anxiety disorder, unspecified; F90.0 Attention-deficit hyperactivity disorder, predominantly inattentive type
CPT/HCPCS: 36415; 80061; 80074; 83036; 86592; 87389; 87491; 87591

== ENCOUNTER 2021-04-12 09:00 | Outpatient (RCR) | payer OTHER, MEDICAID, SELFPAY ==
--- NOTE | 2020-11-30 17:05 | PT.OPPOC ---
Physical, Occupational & Speech Therapy At [facility] Current Diagnoses Dorsalgia, unspecified (11/30/20) Difficulty in walking, not elsewhere classified (11/30/20) Abnormal posture (11/30/20) Weakness (11/30/20) Visit Care Team Role Provider Type Cyrus Alfredo MD Attending Provider Physician Primary Care Provider Referring Provider Specialty: [facility] Address: [address] [place] [address], [facility] Email: [email or web address] Plan Of Care PT-OP-T Assessment and Plan Start: 11/30/20 09:52 Freq: Status: Active Protocol: Document 11/30/20 09:52 [facility] (Rec: 11/30/20 10:33 [facility] [id number]) Physical Therapy Assessment Rehab Potential Rehabilitation Potential Good Evaluation Complexity Number of Personal Factors/Comorbidities 1-2 Number of Body Systems Impaired 4 or More Clinical Presentation at Evaluation Evolving Impairments Impairments Activity Tolerance,Balance, Functional Activities, Functional Mobility,Gait,Pain, Posture,ROM,Soft Tissue Mobility,Strength Goals 5 Shelter Goal (LTG) Pt will return to hiking as much as he enjoys without inc pain over 2/10. LTG Duration 01/30/21 4 Impairment activities Short Term Goal (STG) Pt will show imrpoved posture w/score of at least 4/5 on VCT and EFT in order to imrpove his postural stability and lfiting stability. STG Duration 01/01/21 Shelter Goal (LTG) pt will be able to lift heavy loads w/good mechanics and without increased pain. LTG Duration 01/30/21 3 Impairment work Short Term Goal (STG) Pt will be able to work single shift with pain no greater than 2/10. STG Duration 01/01/21 Shelter Goal (LTG) pt will be able to work double shift as needed without inc pain greater than 2/10 LTG Duration 01/30/21 2 Impairment strength Short Term Goal (STG) Pt will be indep w/HEP STG Duration 12/31/20 Shelter Goal (LTG) pt will score at 5/5 on all BLE MMT and 3/5 on LPM to show imrpoved stability in order to dec pain w/his job. LTG Duration 01/30/21 1 Impairment DANICA 50 Short Term Goal (STG) Pt will improve DANICA score to no more than 7/50 to show improved functional ability. STG Duration 12/31/20 Ob/Gyn Nurse Goal (LTG) Pt will improve DANICA score to no more than 2/50 to show improved functional ability. LTG Duration 01/30/21 Assessment Summary Assessment Pt presents with worsening of chronic back pain and L leg pain. 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 He has not been hiking recently d/t weather over the winter, but also increased pain. He would benefit from skilled PT to work on dec core stability, dec LE strength, posture, impaired gait mechanics, lifting mechanics, and lumbar and hip ROM. Physical Therapy Plan Frequency and Duration Frequency of Treatment 1-2x/week Duration of Treatment 2 months Plan of Care Start Date 11/30/20 Plan of Care End Date 01/30/21 Therapeutic Interventions Therapeutic Interventions Aquatic Therapy,Balance Training,Gait Training,Home Exercise Program,Joint Mobilizations,Manual Therapy, Neuromuscular Re-education, Patient/Caregiver Education, Self-Care/Home Management,Soft Tissue Mobilization,Taping, Therapeutic Activities, Therapeutic Exercises Modalities Cold Pack/Ice Massage,Electric Stimulation,Hot Packs, Infrared Therapy,Traction- Mechanical,Ultrasound Next Visit Focus/Plan Next Note Type Treatment Note Next Visit Plan supine core (pelvic tilt, single leg isometric flex, TAbd engagement, supine alt march, BKFO, quadruped alt UE lifts/LE lifts),stretch ( luke pose, cat camel, open book) manual hip mobs & soft tissue release Plan of Care Dates Plan of Care Start Date 11/30/20 Plan of Care End Date 01/30/21 Electronically Signed by: Azul Spears, PT 12/01/20 0889 Please Sign and Return: I have reviewed this Plan of Care and certify that the skilled therapy services above are required to meet the patient?s needs. Physician Signature Date Printed Name and Credentials Clinical Instructor Signature Printed Name and Credentials
--- NOTE | 2020-11-30 17:05 | PT.OIE ---
Current Diagnoses Dorsalgia, unspecified (11/30/20) Difficulty in walking, not elsewhere classified (11/30/20) Abnormal posture (11/30/20) Weakness (11/30/20) Past Medical History (Last Reviewed 10/21/20 @ 09:48 by Bernard Du DO) Anxiety Chicken pox (~1991) Depression (~1997) Erythema multiforme Foot pain No significant medical problems Strep pharyngitis Swelling of elbow Past Surgical History (Last Reviewed 12/18/19 @ 11:14 by Kishor Bravo MD) Anesthesia Status post appendectomy (~2011) Visit Care Team Role Provider Type Cyrus Alfredo MD Attending Provider Physician Primary Care Provider Referring Provider Specialty: 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 He wakes in the night d/t pain and has to roll around to find something comfortable. Pt avoids lifting activities like rack of cups to avoid inc pain. 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 He did PT prior and that helped. He stretches a lot but has not been cont w/core exercises. Pain started getting progressively worse again in about Nov. He has to spend his day off stretching d/t being sore from working for the past week. Pt reprots last hiking late last summer and stopped d /t back hurting and weather change Prior Treatments and Tests Chiro-no help, PT-helped a year ago Treatment Goals Patient/Caregiver Goals Be able to make it through a work day without being a in a ton of pain by the end, return to hiking Personal Factors Other Personal Factors That May Effect depression, neuropathy Therapy/Recovery PT-OP-C Subjective Start: 11/30/20 09:52 Freq: Status: Active Protocol: Document 11/30/20 09:52 [facility] (Rec: 11/30/20 10:33 [facility] [id number]) Patient Questionnaires Oswestry Low Back Index Oswestry Score OP-PT Pain Assessment Location LB Pain Location Details L>R LB to ant groin, sup glute , ant thigh Intensity 3 Scale Used worst 7/10 Description Aching,Cramping,Sharp,With Movement Frequency Constant Radiating Location L calf Variations/Patterns tingly and burny in thigh occ Pain Aggravating Factors Standing,Walking,Bending, Lifting Other Pain Aggravating Factors work, lifting leg someitmes (L ), occ wake up w/pain Pain Alleviating Factors Cold Other Pain Alleviating Factors stretching, sleeping more PT-OP-D Balance Start: 11/30/20 09:52 Freq: Status: Active Protocol: Document 11/30/20 09:52 [facility] (Rec: 11/30/20 10:33 [facility] [id number]) Balance Tests Single Limb Standing Single Limb- Right slight trunk shear, occ UE use >30 sec Single Limb- Left siginifcant turnk lean and UE use >30 sec PT-OP-G Mobility & Gait Start: 11/30/20 09:52 Freq: Status: Active Protocol: Document 11/30/20 09:52 [facility] (Rec: 11/30/20 10:33 [facility] [id number]) OP Gait Assessment Comments Gait Comments Dec push off B PT-OP-J Posture/Palpation/Skin Start: 11/30/20 09:52 Freq: Status: Active Protocol: Document 11/30/20 09:52 [facility] (Rec: 11/30/20 10:33 [facility] [id number]) Posture Evaluation [facility] Postural Classification System [place] Postural Classifications Posterior/Anterior Vertebral Compression Test 1 Elbow Flexion Test 1 Lumbar Protective Mechanism Left AP 0 Lumbar Protective Mechanism Right AP 0 Lumbar Protective Mechanism Left PA 1 Lumbar Protective Mechanism Right PA 3 Leg Swing Left Hard End Feel,Limited,Pain Leg Swing Right Hard End Feel,Limited Comments Posture Comments feet turned out R>L, R shoulder higher, R pelvic shear, L SB torso, inc kyphoss & fwd head, knee hyperext Palpation Assessment Location LB Palpation Location tenderness: L QL, ES, glutes, piriformis, iliacus L>R, L quads Palpation Details R iliac crest higher, equal greater trochanters, B IR of femurs & ER fo tibia PT-OP-K Range of Motion Start: 11/30/20 09:52 Freq: Status: Active Protocol: Document 11/30/20 09:52 [facility] (Rec: 11/30/20 10:33 [facility] [id number]) Lumbar Spine Range of Motion Lumbar Spine Active Degrees Flexion 71 Extension 20 Rotation Left 63 Rotation Right 70 Lateral Flexion Left 14 Lateral Flexion Right 20 Comments pain w/L SB & flex, L rot PT-OP-L Special Tests Start: 11/30/20 09:52 Freq: Status: Active Protocol: Document 11/30/20 09:52 [facility] (Rec: 11/30/20 10:33 [facility] [id number]) Special Tests Lumbar Spine Special Tests Arcenio Comments mild tightness B Straight Leg Raise Test Results 63 L w/back pain & HS tightnes , 90deg R HS tightness only Slump Test Results positive L PT-OP-M Strength Start: 11/30/20 09:52 Freq: Status: Active Protocol: Document 11/30/20 09:52 [facility] (Rec: 11/30/20 10:33 [facility] [id number]) Hip Strength Hip Manual Muscle Testing Right Flexion (L2) 4 Good Extension (S1) 4+ Good+ Abduction 4+ Good+ Adduction 5 Normal External Rotation 5 Normal Internal Rotation 5 Normal Left Flexion (L2) 3 Fair Extension (S1) 3+ Fair+ Abduction 4- Good- Adduction 3+ Fair+ External Rotation 4+ Good+ Internal Rotation 3+ Fair+ Comments pain w/all MMT Knee Strength Knee Manual Muscle Testing Right Flexion (S2) 5 Normal Extension (L3) 5 Normal Left Flexion (S2) 4 Good Extension (L3) 5 Normal Ankle/Foot Strength Ankle and Foot Manual Muscle Testing Left Dorsiflexion (L4) 5 Normal Plantarflexion (S1) 5 Normal Right Dorsiflexion (L4) 5 Normal Plantarflexion (S1) 5 Normal Comments 20 heel raises PT-OP-Q Treatments Start: 11/30/20 09:52 Freq: Status: Active Protocol: Document 11/30/20 09:52 [facility] (Rec: 11/30/20 10:33 [facility] [id number]) Therapeutic Exercises Supine Exercises pelvic titlt Reps/Minutes 8 PT-OP-T Assessment and Plan Start: 11/30/20 09:52 Freq: Status: Active Protocol: Document 11/30/20 09:52 [facility] (Rec: 11/30/20 10:33 [facility] [id number]) Physical Therapy Assessment Rehab Potential Rehabilitation Potential Good Evaluation Complexity Number of Personal Factors/Comorbidities 1-2 Number of Body Systems Impaired 4 or More Clinical Presentation at Evaluation Evolving Impairments Impairments Activity Tolerance,Balance, Functional Activities, Functional Mobility,Gait,Pain, Posture,ROM,Soft Tissue Mobility,Strength Goals 5 [employer] Goal (LTG) Pt will return to hiking as much as he enjoys without inc pain over 2. LTG Duration 01/30/21 4 Impairment activities Short Term Goal (STG) Pt will show imrpoved posture w/score of at least 4/5 on VCT and EFT in order to imrpove his postural stability and lfiting stability. STG Duration 01/01/21 Snf Goal (LTG) pt will be able to lift heavy loads w/good mechanics and without increased pain. LTG Duration 01/30/21 3 Impairment work Short Term Goal (STG) Pt will be able to work single shift with pain no greater than 2/10. STG Duration 01/01/21 Snf Goal (LTG) pt will be able to work double shift as needed without inc pain greater than 2/10 LTG Duration 01/30/21 2 Impairment strength Short Term Goal (STG) Pt will be indep w/HEP STG Duration 12/31/20 Snf Goal (LTG) pt will score at 5/5 on all BLE MMT and 3/5 on LPM to show imrpoved stability in order to dec pain w/his job. LTG Duration 01/30/21 1 Impairment DANICA 1150 Short Term Goal (STG) Pt will improve DANICA score to no more than 7/50 to show improved functional ability. STG Duration 12/31/20 [employer] Goal (LTG) Pt will improve DANICA score to no more than 2/50 to show improved functional ability. LTG Duration 01/30/21 Assessment Summary Assessment Pt presents with worsening of chronic back pain and L leg pain. 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 He has not been hiking recently d/t weather over the winter, but also increased pain. He would benefit from skilled PT to work on dec core stability, dec LE strength, posture, impaired gait mechanics, lifting mechanics, and lumbar and hip ROM. Physical Therapy Plan Frequency and Duration Frequency of Treatment 1-2x/week Duration of Treatment 2 months Plan of Care Start Date 11/30/20 Plan of Care End Date 01/30/21 Therapeutic Interventions Therapeutic Interventions Aquatic Therapy,Balance Training,Gait Training,Home Exercise Program,Joint Mobilizations,Manual Therapy, Neuromuscular Re-education, Patient/Caregiver Education, Self-Care/Home Management,Soft Tissue Mobilization,Taping, Therapeutic Activities, Therapeutic Exercises Modalities Cold Pack/Ice Massage,Electric Stimulation,Hot Packs, Infrared Therapy,Traction- Mechanical,Ultrasound Next Visit Focus/Plan Next Note Type Treatment Note Next Visit Plan supine core (pelvic tilt, single leg isometric flex, TAbd engagement, supine alt march, BKFO, quadruped alt UE lifts/LE lifts),stretch ( luke pose, cat camel, open book) manual hip mobs & soft tissue release
--- NOTE | 2020-12-02 10:18 | PT.OTN ---
Current Diagnoses Dorsalgia, unspecified (12/02/20) Difficulty in walking, not elsewhere classified (12/02/20) Abnormal posture (12/02/20) Weakness (12/02/20) Physical Therapy Treatment Note PT-OP-A Visit Information Start: 11/30/20 09:52 Freq: Status: Active Protocol: Document 12/02/20 09:42 [facility] (Rec: 12/02/20 10:31 [facility] [id number]) Out-Patient Physical Therapy Visit Information Visit Information Visit Type Treatment Note Visit Start Time 09:45 Visit Stop Time 10:18 Total Visit Minutes 33 Visit Number 2 Number of PROP CUTTER Visits 1 PT-OP-B Current Condition Start: 11/30/20 09:52 Freq: Status: Active Protocol: Document 11/30/20 09:52 [facility] (Rec: 11/30/20 10:33 [facility] [id number]) Current Condition History of Current Condition Onset Date 07/14/19 Current Complaints LBP and ant hip and sup glute and into ant thigh then occ into calf History of Current Condition Pt reports back just hurts a little bit all the time. He wakes in the night d/t pain and has to roll around to find something comfortable. Pt avoids lifting activities like rack of cups to avoid inc pain. 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 He did PT prior and that helped. He stretches a lot but has not been cont w/core exercises. Pain started getting progressively worse again in about Nov. He has to spend his day off stretching d/t being sore from working for the past week. Pt reprots last hiking late last summer and stopped d /t back hurting and weather change Prior Treatments and Tests Chiro-no help, PT-helped a year ago Treatment Goals Patient/Caregiver Goals Be able to make it through a work day without being a in a ton of pain by the end, return to hiking Personal Factors Other Personal Factors That May Effect depression, neuropathy Therapy/Recovery PT-OP-C Subjective Start: 11/30/20 09:52 Freq: Status: Active Protocol: Document 12/02/20 09:42 [facility] (Rec: 12/02/20 10:31 [facility] [id number]) OP-PT Subjective Patient Comments Patient Comments Pt states did some foam and ball rolling to gluts and LB with good results. Only worked 2 hr shift yesterday which helped in decrease pain. Pt stated L anterior and posterior L hip always tight, today R is little tweeking. PT-OP-D Balance Start: 11/30/20 09:52 Freq: Status: Active Protocol: Document 11/30/20 09:52 [facility] (Rec: 11/30/20 10:33 [facility] [id number]) Balance Tests Single Limb Standing Single Limb- Right slight trunk shear, occ UE use >30 sec Single Limb- Left siginifcant turnk lean and UE use >30 sec PT-OP-G Mobility & Gait Start: 11/30/20 09:52 Freq: Status: Active Protocol: Document 11/30/20 09:52 [facility] (Rec: 11/30/20 10:33 [facility] [id number]) OP Gait Assessment Comments Gait Comments Dec push off B PT-OP-J Posture/Palpation/Skin Start: 11/30/20 09:52 Freq: Status: Active Protocol: Document 11/30/20 09:52 [facility] (Rec: 11/30/20 10:33 [facility] [id number]) Posture Evaluation [facility] Postural Classification System [facility] Postural Classifications Posterior/Anterior Vertebral Compression Test 1 Elbow Flexion Test 1 Lumbar Protective Mechanism Left AP 0 Lumbar Protective Mechanism Right AP 0 Lumbar Protective Mechanism Left PA 1 Lumbar Protective Mechanism Right PA 3 Leg Swing Left Hard End Feel,Limited,Pain Leg Swing Right Hard End Feel,Limited Comments Posture Comments feet turned out R>L, R shoulder higher, R pelvic shear, L SB torso, inc kyphoss & fwd head, knee hyperext Palpation Assessment Location LB Palpation Location tenderness: L QL, ES, glutes, piriformis, iliacus L>R, L quads Palpation Details R iliac crest higher, equal greater trochanters, B IR of femurs & ER fo tibia PT-OP-K Range of Motion Start: 11/30/20 09:52 Freq: Status: Active Protocol: Document 11/30/20 09:52 [facility] (Rec: 11/30/20 10:33 [facility] [id number]) Lumbar Spine Range of Motion Lumbar Spine Active Degrees Flexion 71 Extension 20 Rotation Left 63 Rotation Right 70 Lateral Flexion Left 14 Lateral Flexion Right 20 Comments pain w/L SB & flex, L rot PT-OP-L Special Tests Start: 11/30/20 09:52 Freq: Status: Active Protocol: Document 11/30/20 09:52 [facility] (Rec: 11/30/20 10:33 [facility] [id number]) Special Tests Lumbar Spine Special Tests Arcenio Comments mild tightness B Straight Leg Raise Test Results 63 L w/back pain & HS tightnes , 90deg R HS tightness only Slump Test Results positive L PT-OP-M Strength Start: 11/30/20 09:52 Freq: Status: Active Protocol: Document 11/30/20 09:52 [facility] (Rec: 11/30/20 10:33 [facility] [id number]) Hip Strength Hip Manual Muscle Testing Right Flexion (L2) 4 Good Extension (S1) 4+ Good+ Abduction 4+ Good+ Adduction 5 Normal External Rotation 5 Normal Internal Rotation 5 Normal Left Flexion (L2) 3 Fair Extension (S1) 3+ Fair+ Abduction 4- Good- Adduction 3+ Fair+ External Rotation 4+ Good+ Internal Rotation 3+ Fair+ Comments pain w/all MMT Knee Strength Knee Manual Muscle Testing Right Flexion (S2) 5 Normal Extension (L3) 5 Normal Left Flexion (S2) 4 Good Extension (L3) 5 Normal Ankle/Foot Strength Ankle and Foot Manual Muscle Testing Left Dorsiflexion (L4) 5 Normal Plantarflexion (S1) 5 Normal Right Dorsiflexion (L4) 5 Normal Plantarflexion (S1) 5 Normal Comments 20 heel raises PT-OP-Q Treatments Start: 11/30/20 09:52 Freq: Status: Active Protocol: Document 12/02/20 09:42 [facility] (Rec: 12/02/20 10:31 [facility] [id number]) Therapeutic Exercises Supine Exercises hip flexion isometric Supine Exercise Name hold for now Side left Reps/Minutes 5 sec hold x2 Comments had to stop due to pinching deep anterior hip TA draw in Reps/Minutes 10 hold x10 Comments cued awareness of breath BKFO Supine Exercise Name TA Reps/Minutes x10 Comments cued slow movement with pelvic titlt Reps/Minutes 8 Prone Exercises cat camel Reps/Minutes x10 Other Exercises 1/2 knee hip flex stretch Side left Reps/Minutes 30 x3 Comments good front hip stretch luke pose Other Exercise Name quadruped Reps/Minutes 30 sec x3 Comments good back stretch Manual Therapy Treatment Soft Tissue Mobilization glut med, pirformis Body Location L Mobilization Type Myofascial Release,Strumming, Sustained Pressure,Other Intensity/Depth Moderate Body Position Sidelying Comments and MWM clamshell hip flexor Body Location L>R poas, iliacus Mobilization Type Myofascial Release,Sustained Pressure Intensity/Depth Moderate Body Position Hooklying Joint Mobilizations hip Joint L Direction lateral, inferior glilde Grade II Body Position Supine Reps/Duration 30 x3 each direction PT-OP-T Assessment and Plan Start: 11/30/20 09:52 Freq: Status: Active Protocol: Document 12/02/20 09:42 [facility] (Rec: 12/02/20 10:31 [facility] [id number]) Physical Therapy Assessment Goals 5 Rn Long Term Care Goal (LTG) Pt will return to hiking as much as he enjoys without inc pain over 2/10. LTG Duration 01/30/21 4 Impairment activities Short Term Goal (STG) Pt will show imrpoved posture w/score of at least 4/5 on VCT and EFT in order to imrpove his postural stability and lfiting stability. STG Duration 01/01/21 Rn Long Term Care Goal (LTG) pt will be able to lift heavy loads w/good mechanics and without increased pain. LTG Duration 01/30/21 3 Impairment work Short Term Goal (STG) Pt will be able to work single shift with pain no greater than 2/10. STG Duration 01/01/21 Skilled Nursing Goal (LTG) pt will be able to work double shift as needed without inc pain greater than 2/10 LTG Duration 01/30/21 2 Impairment strength Short Term Goal (STG) Pt will be indep w/HEP STG Duration 12/31/20 Skilled Nursing Goal (LTG) pt will score at 5/5 on all BLE MMT and 3/5 on LPM to show imrpoved stability in order to dec pain w/his job. LTG Duration 01/30/21 1 Impairment DANICA 50 Short Term Goal (STG) Pt will improve DANICA score to no more than 7/50 to show improved functional ability. STG Duration 12/31/20 Skilled Nursing Goal (LTG) Pt will improve DANICA score to no more than 2/50 to show improved functional ability. LTG Duration 01/30/21 Assessment Summary Assessment Tx focused on manual and reeducatoin on TA facilitation and flexibility. Initiated TA , pelvic tilt trng, BKFO AROM little tweaking tightness in L >R deep to pelvis, improved post manual, core facilitation and stretching. My hips feel more loosened up and R anterior hip tightness gone. Pt didn't respond well to hip flexion isometric, will hold for now. Physical Therapy Plan Frequency and Duration Frequency of Treatment 1-2x/week Duration of Treatment 2 months Plan of Care Start Date 11/30/20 Plan of Care End Date 01/30/21 Therapeutic Interventions Therapeutic Interventions Aquatic Therapy,Balance Training,Gait Training,Home Exercise Program,Joint Mobilizations,Manual Therapy, Neuromuscular Re-education, Patient/Caregiver Education, Self-Care/Home Management,Soft Tissue Mobilization,Taping, Therapeutic Activities, Therapeutic Exercises Modalities Cold Pack/Ice Massage,Electric Stimulation,Hot Packs, Infrared Therapy,Traction- Mechanical,Ultrasound Next Visit Focus/Plan Next Note Type Treatment Note Next Visit Plan Assess reponse to initiated manual and HEP: supine core pelvic tilt, TAbd engagement, BKFO, stretch:luke pose, cat camel, 1/2 kneel hip flex stretch. Continue: manual hip mobs & soft tissue release Future txs: supine alt march, quadruped alt UE lifts/LE lifts, open book
--- NOTE | 2020-12-14 09:36 | PT.OTN ---
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 (Rec: 11/30/20 10:33 [facility] [id number]) Current Condition History of Current Condition Onset Date 07/14/19 Current Complaints LBP and ant hip and sup glute and into ant thigh then occ into calf History of Current Condition Pt reports back just hurts a little bit all the time. He wakes in the night d/t pain and has to roll around to find something comfortable. Pt avoids lifting activities like rack of cups to avoid inc pain. 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 He did PT prior and that helped. He stretches a lot but has not been cont w/core exercises. Pain started getting progressively worse again in about Nov. He has to spend his day off stretching d/t being sore from working for the past week. Pt reprots last hiking late last summer and stopped d /t back hurting and weather change Prior Treatments and Tests Chiro-no help, PT-helped a year ago Treatment Goals Patient/Caregiver Goals Be able to make it through a work day without being a in a ton of pain by the end, return to hiking Personal Factors Other Personal Factors That May Effect depression, neuropathy Therapy/Recovery PT-OP-C Subjective Start: 11/30/20 09:52 Freq: Status: Active Protocol: Document 12/14/20 09:02 SP (Rec: 12/14/20 09:50 SP [id number]) OP-PT Subjective Patient Comments Patient Comments Pt stated doing well, walking little more due to coworker out of town 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 PT-OP-D Balance Start: 11/30/20 09:52 Freq: Status: Active Protocol: Document 11/30/20 09:52 [facility] (Rec: 11/30/20 10:33 [facility] [id number]) Balance Tests Single Limb Standing Single Limb- Right slight trunk shear, occ UE use >30 sec Single Limb- Left siginifcant turnk lean and UE use >30 sec PT-OP-G Mobility & Gait Start: 11/30/20 09:52 Freq: Status: Active Protocol: Document 11/30/20 09:52 [facility] (Rec: 11/30/20 10:33 [facility] [id number]) OP Gait Assessment Comments Gait Comments Dec push off B PT-OP-J Posture/Palpation/Skin Start: 11/30/20 09:52 Freq: Status: Active Protocol: Document 11/30/20 09:52 [facility] (Rec: 11/30/20 10:33 [facility] [id number]) Posture Evaluation [facility] Postural Classification System [facility] Postural Classifications Posterior/Anterior Vertebral Compression Test 1 Elbow Flexion Test 1 Lumbar Protective Mechanism Left AP 0 Lumbar Protective Mechanism Right AP 0 Lumbar Protective Mechanism Left PA 1 Lumbar Protective Mechanism Right PA 3 Leg Swing Left Hard End Feel,Limited,Pain Leg Swing Right Hard End Feel,Limited Comments Posture Comments feet turned out R>L, R shoulder higher, R pelvic shear, L SB torso, inc kyphoss & fwd head, knee hyperext Palpation Assessment Location LB Palpation Location tenderness: L QL, ES, glutes, piriformis, iliacus L>R, L quads Palpation Details R iliac crest higher, equal greater trochanters, B IR of femurs & ER fo tibia PT-OP-K Range of Motion Start: 11/30/20 09:52 Freq: Status: Active Protocol: Document 11/30/20 09:52 [facility] (Rec: 11/30/20 10:33 [facility] [id number]) Lumbar Spine Range of Motion Lumbar Spine Active Degrees Flexion 71 Extension 20 Rotation Left 63 Rotation Right 70 Lateral Flexion Left 14 Lateral Flexion Right 20 Comments pain w/L SB & flex, L rot PT-OP-L Special Tests Start: 11/30/20 09:52 Freq: Status: Active Protocol: Document 11/30/20 09:52 [facility] (Rec: 11/30/20 10:33 [facility] [id number]) Special Tests Lumbar Spine Special Tests Arcenio Comments mild tightness B Straight Leg Raise Test Results 63 L w/back pain & HS tightnes , 90deg R HS tightness only Slump Test Results positive L PT-OP-M Strength Start: 11/30/20 09:52 Freq: Status: Active Protocol: Document 11/30/20 09:52 [facility] (Rec: 11/30/20 10:33 [facility] [id number]) Hip Strength Hip Manual Muscle Testing Right Flexion (L2) 4 Good Extension (S1) 4+ Good+ Abduction 4+ Good+ Adduction 5 Normal External Rotation 5 Normal Internal Rotation 5 Normal Left Flexion (L2) 3 Fair Extension (S1) 3+ Fair+ Abduction 4- Good- Adduction 3+ Fair+ External Rotation 4+ Good+ Internal Rotation 3+ Fair+ Comments pain w/all MMT Knee Strength Knee Manual Muscle Testing Right Flexion (S2) 5 Normal Extension (L3) 5 Normal Left Flexion (S2) 4 Good Extension (L3) 5 Normal Ankle/Foot Strength Ankle and Foot Manual Muscle Testing Left Dorsiflexion (L4) 5 Normal Plantarflexion (S1) 5 Normal Right Dorsiflexion (L4) 5 Normal Plantarflexion (S1) 5 Normal Comments 20 heel raises PT-OP-Q Treatments Start: 11/30/20 09:52 Freq: Status: Active Protocol: Document 12/14/20 09:02 SP (Rec: 12/14/20 09:50 SP [id number]) Therapeutic Exercises Supine Exercises HS and ITB stretch Side left Reps/Minutes 30x3 TA draw in Reps/Minutes 10 hold x10 Comments cued awareness of breath BKFO Supine Exercise Name TA Reps/Minutes x10 Comments cued slow movement with pelvic titlt Reps/Minutes 8 Arcenio stretch Reps/Minutes B 2 reps, 30 sec Comments Opposite leg with knee bent and foot on september Supine Exercise Name TA september added next tx Prone Exercises cat camel Prone Exercise Name added to HEP Reps/Minutes 5 sec hold x10 Comments good stretching response hip ext Prone Exercise Name Quadruped alt UE/ LE ext- added to HEP Reps/Minutes 2x5 Comments cued TA/ level pelvis, LE glide into ext then lift w/ better PPT awareness Sidelying Exercises open book Sidelying Exercise Name added to HEP Side bilateral Reps/Minutes x5 B Comments good feedback response Sitting Exercises Rolling pin STM quads Sitting Exercise Name did not perform but states uses firm knob ball, foam roller, stick Reps/Minutes quad/glut/ ITB/ adductors Comments does as HEP Other Exercises 1/2 knee hip flex stretch Other Exercise Name HEP review Side left Reps/Minutes 30 x3 Comments good front hip stretch- 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 Manual Therapy Treatment Soft Tissue Mobilization glut med, pirformis Body Location L Mobilization Type Myofascial Release,Strumming, Sustained Pressure,Other Intensity/Depth Moderate Body Position Sidelying Comments and MWM clamshell hip flexor Body Location L>R poas, iliacus Mobilization Type Myofascial Release,Sustained Pressure Intensity/Depth Moderate Body Position Hooklying Joint Mobilizations hip Joint L Direction lateral, inferior glilde Grade II Body Position Supine Reps/Duration 30 x3 each direction PT-OP-T Assessment and Plan Start: 11/30/20 09:52 Freq: Status: Active Protocol: Document 12/14/20 09:02 SP (Rec: 12/14/20 09:50 SP [id number]) Physical Therapy Assessment Goals 5 Retirement Goal (LTG) Pt will return to hiking as much as he enjoys without inc pain over 09/01. LTG Duration 01/30/21 4 Impairment activities Short Term Goal (STG) Pt will show imrpoved posture w/score of at least 4/5 on VCT and EFT in order to imrpove his postural stability and lfiting stability. STG Duration 01/01/21 Reception Interviewer Goal (LTG) pt will be able to lift heavy loads w/good mechanics and without increased pain. LTG Duration 01/30/21 3 Impairment work Short Term Goal (STG) Pt will be able to work single shift with pain no greater than 2/10. STG Duration 01/01/21 Reception Interviewer Goal (LTG) pt will be able to work double shift as needed without inc pain greater than 2/10 LTG Duration 01/30/21 2 Impairment strength Short Term Goal (STG) Pt will be indep w/HEP STG Duration 12/31/20 Retirement Goal (LTG) pt will score at 5/5 on all BLE MMT and 3/5 on LPM to show imrpoved stability in order to dec pain w/his job. LTG Duration 01/30/21 1 Impairment DANICA Short Term Goal (STG) Pt will improve DANICA score to no more than 7/50 to show improved functional ability. STG Duration 12/31/20 Retirement Goal (LTG) Pt will improve DANICA score to no more than 2/50 to show improved functional ability. LTG Duration 01/30/21 Assessment Summary Assessment Pt had good response L front hip feels less tight and able to extend back better, post manual, stretching, ROM LS and TS, hip ext with TA facilitation today. Physical Therapy Plan Frequency and Duration Frequency of Treatment 1-2x/week Duration of Treatment 2 months Plan of Care Start Date 11/30/20 Plan of Care End Date 01/30/21 Therapeutic Interventions Therapeutic Interventions Aquatic Therapy,Balance Training,Gait Training,Home Exercise Program,Joint Mobilizations,Manual Therapy, Neuromuscular Re-education, Patient/Caregiver Education, Self-Care/Home Management,Soft Tissue Mobilization,Taping, Therapeutic Activities, Therapeutic Exercises Modalities Cold Pack/Ice Massage,Electric Stimulation,Hot Packs, Infrared Therapy,Traction- Mechanical,Ultrasound Next Visit Focus/Plan Next Note Type Treatment Note Next Visit Plan Assess reponse to initiated HEP and manual STMs/ L hip mobs: TA trng, arcenio and HS & ITB stretch, quad cat/camel and UE/ LE ext, open book, LTR . Next tx add core september. Continue POC: manual hip mobs & soft tissue release
--- NOTE | 2020-12-23 09:34 | PT.OTN ---
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 He wakes in the night d/t pain and has to roll around to find something comfortable. Pt avoids lifting activities like rack of cups to avoid inc pain. 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 He did PT prior and that helped. He stretches a lot but has not been cont w/core exercises. Pain started getting progressively worse again in about Nov. He has to spend his day off stretching d/t being sore from working for the past week. Pt reprots last hiking late last summer and stopped d /t back hurting and weather change Prior Treatments and Tests Chiro-no help, PT-helped a year ago Treatment Goals Patient/Caregiver Goals Be able to make it through a work day without being a in a ton of pain by the end, return to hiking Personal Factors Other Personal Factors That May Effect depression, neuropathy Therapy/Recovery PT-OP-C Subjective Start: 11/30/20 09:52 Freq: Status: Active Protocol: Document 12/23/20 09:03 SP (Rec: 12/23/20 09:46 SP [id number]) OP-PT Subjective Patient Comments Patient Comments Pt stated doing pretty well today, did start taking magnesium and finds able to make through shift better with more soreness than pain. Still gets pinching into L LE deep end range hip flexion seated bend over or KTC. Patient Reported Progress Improving PT-OP-D Balance Start: 11/30/20 09:52 Freq: Status: Active Protocol: Document 11/30/20 09:52 [facility] (Rec: 11/30/20 10:33 [facility] [id number]) Balance Tests Single Limb Standing Single Limb- Right slight trunk shear, occ UE use >30 sec Single Limb- Left siginifcant turnk lean and UE use >30 sec PT-OP-G Mobility & Gait Start: 11/30/20 09:52 Freq: Status: Active Protocol: Document 11/30/20 09:52 [facility] (Rec: 11/30/20 10:33 [facility] [id number]) OP Gait Assessment Comments Gait Comments Dec push off B PT-OP-J Posture/Palpation/Skin Start: 11/30/20 09:52 Freq: Status: Active Protocol: Document 11/30/20 09:52 [facility] (Rec: 11/30/20 10:33 [facility] [id number]) Posture Evaluation [facility] Postural Classification System [facility] Postural Classifications Posterior/Anterior Vertebral Compression Test 1 Elbow Flexion Test 1 Lumbar Protective Mechanism Left AP 0 Lumbar Protective Mechanism Right AP 0 Lumbar Protective Mechanism Left PA 1 Lumbar Protective Mechanism Right PA 3 Leg Swing Left Hard End Feel,Limited,Pain Leg Swing Right Hard End Feel,Limited Comments Posture Comments feet turned out R>L, R shoulder higher, R pelvic shear, L SB torso, inc kyphoss & fwd head, knee hyperext Palpation Assessment Location LB Palpation Location tenderness: L QL, ES, glutes, piriformis, iliacus L>R, L quads Palpation Details R iliac crest higher, equal greater trochanters, B IR of femurs & ER fo tibia PT-OP-K Range of Motion Start: 11/30/20 09:52 Freq: Status: Active Protocol: Document 11/30/20 09:52 [facility] (Rec: 11/30/20 10:33 [facility] [id number]) Lumbar Spine Range of Motion Lumbar Spine Active Degrees Flexion 71 Extension 20 Rotation Left 63 Rotation Right 70 Lateral Flexion Left 14 Lateral Flexion Right 20 Comments pain w/L SB & flex, L rot PT-OP-L Special Tests Start: 11/30/20 09:52 Freq: Status: Active Protocol: Document 11/30/20 09:52 [facility] (Rec: 11/30/20 10:33 [facility] [id number]) Special Tests Lumbar Spine Special Tests Arcenio Comments mild tightness B Straight Leg Raise Test Results 63 L w/back pain & HS tightnes , 90deg R HS tightness only Slump Test Results positive L PT-OP-M Strength Start: 11/30/20 09:52 Freq: Status: Active Protocol: Document 11/30/20 09:52 [facility] (Rec: 11/30/20 10:33 [facility] [id number]) Hip Strength Hip Manual Muscle Testing Right Flexion (L2) 4 Good Extension (S1) 4+ Good+ Abduction 4+ Good+ Adduction 5 Normal External Rotation 5 Normal Internal Rotation 5 Normal Left Flexion (L2) 3 Fair Extension (S1) 3+ Fair+ Abduction 4- Good- Adduction 3+ Fair+ External Rotation 4+ Good+ Internal Rotation 3+ Fair+ Comments pain w/all MMT Knee Strength Knee Manual Muscle Testing Right Flexion (S2) 5 Normal Extension (L3) 5 Normal Left Flexion (S2) 4 Good Extension (L3) 5 Normal Ankle/Foot Strength Ankle and Foot Manual Muscle Testing Left Dorsiflexion (L4) 5 Normal Plantarflexion (S1) 5 Normal Right Dorsiflexion (L4) 5 Normal Plantarflexion (S1) 5 Normal Comments 20 heel raises PT-OP-Q Treatments Start: 11/30/20 09:52 Freq: Status: Active Protocol: Document 12/23/20 09:03 SP (Rec: 12/23/20 09:46 SP [id number]) Therapeutic Exercises Supine Exercises march Supine Exercise Name TA sequencial march easy> DL lift with SL ext 45 deg ext Side bilateral Reps/Minutes 2x5 Comments cued slow ext with TA fac, good if slow (x1 spasm pain ant L hip fast) Prone Exercises child's pose Reps/Minutes 30 x3 Comments no pinching, good stretch LB response cat camel Prone Exercise Name added to HEP Reps/Minutes 5 sec hold x10 Comments good stretching response hip ext Prone Exercise Name Quadruped alt UE/ LE ext- added to HEP Reps/Minutes 2x5 Comments cued TA/ level pelvis, LE glide into ext then lift w/ better PPT awareness Sidelying Exercises open book Sidelying Exercise Name review HEP Side bilateral Reps/Minutes x5 B Comments good feedback response Standing Exercises selena curl TA fac Reps/Minutes x5 AROM, x5 2 10# DB Comments no pain Other Exercises 1/2 knee hip flex stretch Other Exercise Name HEP review Side left Reps/Minutes 30 x3, again post manual with hip IR TFL emphasis Comments good front hip stretch- 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 LTG Duration 01/30/21 4 Impairment activities Short Term Goal (STG) Pt will show imrpoved posture w/score of at least 4/5 on VCT and EFT in order to imrpove his postural stability and lfiting stability. 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 LTG Duration 01/30/21 3 Impairment work Short Term Goal (STG) Pt will be able to work single shift with pain no greater than 2/10. STG Duration 01/01/21 Contracting Officer Goal (LTG) pt will be able to work double shift as needed without inc pain greater than 2/10 LTG Duration 01/30/21 2 Impairment strength Short Term Goal (STG) Pt will be indep w/HEP STG Duration 12/31/20 Contracting Officer Goal (LTG) pt will score at 5/5 on all BLE MMT and 3/5 on LPM to show imrpoved stability in order to dec pain w/his job. LTG Duration 01/30/21 1 Impairment DANICA Short Term Goal (STG) Pt will improve DANICA score to no more than 7/50 to show improved functional ability. STG Duration 12/31/20 Contracting Officer Goal (LTG) Pt will improve DANICA score to no more than 2/50 to show improved functional ability. LTG Duration 01/30/21 Assessment Summary Assessment Pt responded well to ther ex today HEP review, initiated mechanics TA postural roll at wall (selena curl) little pinching anterior hip decrease with resistance and supine TA LE ext w/ good core facil pain-free slow pacing, and Hip IR TFL stretch in 1/2 kneel post manual with discussion self ball roll TFL for carryover STMs. Pt felt could take longer strides end tx I feel alot looser over front of my hip today. Physical Therapy Plan Frequency and Duration Frequency of Treatment 1-2x/week Duration of Treatment 2 months Plan of Care Start Date 11/30/20 Plan of Care End Date 01/30/21 Therapeutic Interventions Therapeutic Interventions Aquatic Therapy,Balance Training,Gait Training,Home Exercise Program,Joint Mobilizations,Manual Therapy, Neuromuscular Re-education, Patient/Caregiver Education, Self-Care/Home Management,Soft Tissue Mobilization,Taping, Therapeutic Activities, Therapeutic Exercises Modalities Cold Pack/Ice Massage,Electric Stimulation,Hot Packs, Infrared Therapy,Traction- Mechanical,Ultrasound Next Visit Focus/Plan Next Note Type Treatment Note Next Visit Plan Assess reponse to initiated HEP and manual STMs/ L hip mobs: selena curl AROM and DBs, 1/2 kneel stretch quad/ TFL, bird dog, TA LE ext supine, manual. Continue POC: manual hip mobs & soft tissue release as needed.
--- NOTE | 2020-12-30 09:24 | PT-OP ANOTE ---
Pt did not show for today's appt, left a message regarding and reminded next appt 01/04/21 at 9am with LUIS ALBERTO Liang.
--- NOTE | 2021-01-04 09:49 | PT.OTN ---
Current Diagnoses Dorsalgia, unspecified (01/04/21) Difficulty in walking, not elsewhere classified (01/04/21) Abnormal posture (01/04/21) Weakness (01/04/21) Physical Therapy Treatment Note PT-OP-A Visit Information Start: 11/30/20 09:52 Freq: Status: Active Protocol: Document 01/04/21 09:14 [facility] (Rec: 01/04/21 09:49 [facility] [id number]) Out-Patient Physical Therapy Visit Information Visit Information Visit Type Treatment Note Visit Start Time 09:05 Visit Stop Time 09:41 Total Visit Minutes 36 Visit Number 5 Number of ROUSTABOUT PUSHER Visits 0 PT-OP-B Current Condition Start: 11/30/20 09:52 Freq: Status: Active Protocol: Document 11/30/20 09:52 [facility] (Rec: 11/30/20 10:33 [facility] [id number]) Current Condition History of Current Condition Onset Date 07/14/19 Current Complaints LBP and ant hip and sup glute and into ant thigh then occ into calf History of Current Condition Pt reports back just hurts a little bit all the time. He wakes in the night d/t pain and has to roll around to find something comfortable. Pt avoids lifting activities like rack of cups to avoid inc pain. 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 He did PT prior and that helped. He stretches a lot but has not been cont w/core exercises. Pain started getting progressively worse again in about Nov. He has to spend his day off stretching d/t being sore from working for the past week. Pt reprots last hiking late last summer and stopped d /t back hurting and weather change Prior Treatments and Tests Chiro-no help, PT-helped a year ago Treatment Goals Patient/Caregiver Goals Be able to make it through a work day without being a in a ton of pain by the end, return to hiking Personal Factors Other Personal Factors That May Effect depression, neuropathy Therapy/Recovery PT-OP-C Subjective Start: 11/30/20 09:52 Freq: Status: Active Protocol: Document 01/04/21 09:14 [facility] (Rec: 01/04/21 09:49 [facility] [id number]) OP-PT Subjective Patient Comments Patient Comments Pt reports last week was pretty bad for pain but today is better. He is off for 5 days on PTO PT-OP-D Balance Start: 11/30/20 09:52 Freq: Status: Active Protocol: Document 11/30/20 09:52 [facility] (Rec: 11/30/20 10:33 [facility] [id number]) Balance Tests Single Limb Standing Single Limb- Right slight trunk shear, occ UE use >30 sec Single Limb- Left siginifcant turnk lean and UE use >30 sec PT-OP-G Mobility & Gait Start: 11/30/20 09:52 Freq: Status: Active Protocol: Document 11/30/20 09:52 [facility] (Rec: 11/30/20 10:33 [facility] [id number]) OP Gait Assessment Comments Gait Comments Dec push off B PT-OP-J Posture/Palpation/Skin Start: 11/30/20 09:52 Freq: Status: Active Protocol: Document 11/30/20 09:52 [facility] (Rec: 11/30/20 10:33 [facility] [id number]) Posture Evaluation [facility] Postural Classification System [facility] Postural Classifications Posterior/Anterior Vertebral Compression Test 1 Elbow Flexion Test 1 Lumbar Protective Mechanism Left AP 0 Lumbar Protective Mechanism Right AP 0 Lumbar Protective Mechanism Left PA 1 Lumbar Protective Mechanism Right PA 3 Leg Swing Left Hard End Feel,Limited,Pain Leg Swing Right Hard End Feel,Limited Comments Posture Comments feet turned out R>L, R shoulder higher, R pelvic shear, L SB torso, inc kyphoss & fwd head, knee hyperext Palpation Assessment Location LB Palpation Location tenderness: L QL, ES, glutes, piriformis, iliacus L>R, L quads Palpation Details R iliac crest higher, equal greater trochanters, B IR of femurs & ER fo tibia PT-OP-K Range of Motion Start: 11/30/20 09:52 Freq: Status: Active Protocol: Document 11/30/20 09:52 [facility] (Rec: 11/30/20 10:33 [facility] [id number]) Lumbar Spine Range of Motion Lumbar Spine Active Degrees Flexion 71 Extension 20 Rotation Left 63 Rotation Right 70 Lateral Flexion Left 14 Lateral Flexion Right 20 Comments pain w/L SB & flex, L rot PT-OP-L Special Tests Start: 11/30/20 09:52 Freq: Status: Active Protocol: Document 11/30/20 09:52 [facility] (Rec: 11/30/20 10:33 [facility] [id number]) Special Tests Lumbar Spine Special Tests Arcenio Comments mild tightness B Straight Leg Raise Test Results 63 L w/back pain & HS tightnes , 90deg R HS tightness only Slump Test Results positive L PT-OP-M Strength Start: 11/30/20 09:52 Freq: Status: Active Protocol: Document 11/30/20 09:52 [facility] (Rec: 11/30/20 10:33 [facility] [id number]) Hip Strength Hip Manual Muscle Testing Right Flexion (L2) 4 Good Extension (S1) 4+ Good+ Abduction 4+ Good+ Adduction 5 Normal External Rotation 5 Normal Internal Rotation 5 Normal Left Flexion (L2) 3 Fair Extension (S1) 3+ Fair+ Abduction 4- Good- Adduction 3+ Fair+ External Rotation 4+ Good+ Internal Rotation 3+ Fair+ Comments pain w/all MMT Knee Strength Knee Manual Muscle Testing Right Flexion (S2) 5 Normal Extension (L3) 5 Normal Left Flexion (S2) 4 Good Extension (L3) 5 Normal Ankle/Foot Strength Ankle and Foot Manual Muscle Testing Left Dorsiflexion (L4) 5 Normal Plantarflexion (S1) 5 Normal Right Dorsiflexion (L4) 5 Normal Plantarflexion (S1) 5 Normal Comments 20 heel raises PT-OP-Q Treatments Start: 11/30/20 09:52 Freq: Status: Active Protocol: Document 01/04/21 09:14 [facility] (Rec: 01/04/21 09:49 [facility] [id number]) Therapeutic Exercises Supine Exercises march Supine Exercise Name DL lift with SL ext 45 deg ext alt Side bilateral Reps/Minutes 2x10 Prone Exercises hip ext Prone Exercise Name 1.quad hip ext 2.Quadruped alt UE/ LE ext Reps/Minutes 2x10 ea Comments cued TA/ level pelvis, LE glide into ext then lift w/ better PPT awareness Other Exercises luke pose Reps/Minutes 30 sec Manual Therapy Treatment Soft Tissue Mobilization hip flexor Body Location L iliacus, inguinal ligament, abdomen Mobilization Type Myofascial Release,Strumming, Sustained Pressure Intensity/Depth Moderate Body Position Hooklying Comments w/LTR review during on how to use a plunger to help w/release or ball Joint Mobilizations sacrum Joint caudal and L UPA FM innominiate Direction IR FM L hip Joint L Direction on axis IR FM PT-OP-T Assessment and Plan Start: 11/30/20 09:52 Freq: Status: Active Protocol: Document 01/04/21 09:14 [facility] (Rec: 01/04/21 09:49 [facility] [id number]) Physical Therapy Assessment Goals 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 LTG Duration 01/30/21 4 Impairment activities Short Term Goal (STG) Pt will show imrpoved posture w/score of at least 4/5 on VCT and EFT in order to imrpove his postural stability and lfiting stability. STG Duration 01/01/21 Care Home Goal (LTG) pt will be able to lift heavy loads w/good mechanics and without increased pain. LTG Duration 01/30/21 3 Impairment work Short Term Goal (STG) Pt will be able to work single shift with pain no greater than 2/10. STG Duration 01/01/21 [employer] Operator Goal (LTG) pt will be able to work double shift as needed without inc pain greater than 2/10 LTG Duration 01/30/21 2 Impairment strength Short Term Goal (STG) Pt will be indep w/HEP STG Duration 12/31/20 Care Home Goal (LTG) pt will score at 5/5 on all BLE MMT and 3/5 on LPM to show imrpoved stability in order to dec pain w/his job. LTG Duration 01/30/21 1 Impairment DANICA 11/50 Short Term Goal (STG) Pt will improve DANICA score to no more than 7/50 to show improved functional ability. STG Duration 12/31/20 [employer] Operator Goal (LTG) Pt will improve DANICA score to no more than 2/50 to show improved functional ability. LTG Duration 01/30/21 Assessment Summary Assessment Pt required max cueing with all exercises for good form and needed cues for neutral spine. He had improved hip IR and flex w/less pain after manual treatmetn Physical Therapy Plan Frequency and Duration Frequency of Treatment 1-2x/week Duration of Treatment 2 months Plan of Care Start Date 11/30/20 Plan of Care End Date 01/30/21 Next Visit Focus/Plan Next Note Type Treatment Note Next Visit Plan review exercises and cont to progress core stability as tolerated, add glute strengthening
--- NOTE | 2021-01-11 09:56 | PT.OTN ---
Current Diagnoses Dorsalgia, unspecified (01/11/21) Difficulty in walking, not elsewhere classified (01/11/21) Abnormal posture (01/11/21) Weakness (01/11/21) Physical Therapy Treatment Note PT-OP-A Visit Information Start: 11/30/20 09:52 Freq: Status: Active Protocol: Document 01/11/21 09:02 [facility] (Rec: 01/11/21 09:56 [facility] [id number]) Out-Patient Physical Therapy Visit Information Visit Information Visit Type Treatment Note Visit Start Time 09:03 Visit Stop Time 09:40 Total Visit Minutes 37 Visit Number 6 Number of GREY GOODS EXAMINER Visits 0 PT-OP-B Current Condition Start: 11/30/20 09:52 Freq: Status: Active Protocol: Document 11/30/20 09:52 [facility] (Rec: 11/30/20 10:33 [facility] [id number]) Current Condition History of Current Condition Onset Date 07/14/19 Current Complaints LBP and ant hip and sup glute and into ant thigh then occ into calf History of Current Condition Pt reports back just hurts a little bit all the time. He wakes in the night d/t pain and has to roll around to find something comfortable. Pt avoids lifting activities like rack of cups to avoid inc pain. 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 He did PT prior and that helped. He stretches a lot but has not been cont w/core exercises. Pain started getting progressively worse again in about Nov. He has to spend his day off stretching d/t being sore from working for the past week. Pt reprots last hiking late last summer and stopped d /t back hurting and weather change Prior Treatments and Tests Chiro-no help, PT-helped a year ago Treatment Goals Patient/Caregiver Goals Be able to make it through a work day without being a in a ton of pain by the end, return to hiking Personal Factors Other Personal Factors That May Effect depression, neuropathy Therapy/Recovery PT-OP-C Subjective Start: 11/30/20 09:52 Freq: Status: Active Protocol: Document 01/11/21 09:02 [facility] (Rec: 01/11/21 09:56 [facility] [id number]) OP-PT Subjective Patient Comments Patient Comments Pt reports he didn't sleep very well last night and is sore. PT-OP-D Balance Start: 11/30/20 09:52 Freq: Status: Active Protocol: Document 11/30/20 09:52 [facility] (Rec: 11/30/20 10:33 [facility] [id number]) Balance Tests Single Limb Standing Single Limb- Right slight trunk shear, occ UE use >30 sec Single Limb- Left siginifcant turnk lean and UE use >30 sec PT-OP-G Mobility & Gait Start: 11/30/20 09:52 Freq: Status: Active Protocol: Document 11/30/20 09:52 [facility] (Rec: 11/30/20 10:33 [facility] [id number]) OP Gait Assessment Comments Gait Comments Dec push off B PT-OP-J Posture/Palpation/Skin Start: 11/30/20 09:52 Freq: Status: Active Protocol: Document 11/30/20 09:52 [facility] (Rec: 11/30/20 10:33 [facility] [id number]) Posture Evaluation [facility] Postural Classification System [facility] Postural Classifications Posterior/Anterior Vertebral Compression Test 1 Elbow Flexion Test 1 Lumbar Protective Mechanism Left AP 0 Lumbar Protective Mechanism Right AP 0 Lumbar Protective Mechanism Left PA 1 Lumbar Protective Mechanism Right PA 3 Leg Swing Left Hard End Feel,Limited,Pain Leg Swing Right Hard End Feel,Limited Comments Posture Comments feet turned out R>L, R shoulder higher, R pelvic shear, L SB torso, inc kyphoss & fwd head, knee hyperext Palpation Assessment Location LB Palpation Location tenderness: L QL, ES, glutes, piriformis, iliacus L>R, L quads Palpation Details R iliac crest higher, equal greater trochanters, B IR of femurs & ER fo tibia PT-OP-K Range of Motion Start: 11/30/20 09:52 Freq: Status: Active Protocol: Document 11/30/20 09:52 [facility] (Rec: 11/30/20 10:33 [facility] [id number]) Lumbar Spine Range of Motion Lumbar Spine Active Degrees Flexion 71 Extension 20 Rotation Left 63 Rotation Right 70 Lateral Flexion Left 14 Lateral Flexion Right 20 Comments pain w/L SB & flex, L rot PT-OP-L Special Tests Start: 11/30/20 09:52 Freq: Status: Active Protocol: Document 11/30/20 09:52 [facility] (Rec: 11/30/20 10:33 [facility] [id number]) Special Tests Lumbar Spine Special Tests Arcenio Comments mild tightness B Straight Leg Raise Test Results 63 L w/back pain & HS tightnes , 90deg R HS tightness only Slump Test Results positive L PT-OP-M Strength Start: 11/30/20 09:52 Freq: Status: Active Protocol: Document 11/30/20 09:52 [facility] (Rec: 11/30/20 10:33 [facility] [id number]) Hip Strength Hip Manual Muscle Testing Right Flexion (L2) 4 Good Extension (S1) 4+ Good+ Abduction 4+ Good+ Adduction 5 Normal External Rotation 5 Normal Internal Rotation 5 Normal Left Flexion (L2) 3 Fair Extension (S1) 3+ Fair+ Abduction 4- Good- Adduction 3+ Fair+ External Rotation 4+ Good+ Internal Rotation 3+ Fair+ Comments pain w/all MMT Knee Strength Knee Manual Muscle Testing Right Flexion (S2) 5 Normal Extension (L3) 5 Normal Left Flexion (S2) 4 Good Extension (L3) 5 Normal Ankle/Foot Strength Ankle and Foot Manual Muscle Testing Left Dorsiflexion (L4) 5 Normal Plantarflexion (S1) 5 Normal Right Dorsiflexion (L4) 5 Normal Plantarflexion (S1) 5 Normal Comments 20 heel raises PT-OP-Q Treatments Start: 11/30/20 09:52 Freq: Status: Active Protocol: Document 01/11/21 09:02 [facility] (Rec: 01/11/21 09:56 [facility] [id number]) Therapeutic Exercises Supine Exercises bridge Supine Exercise Name w/alt march Side bilateral Reps/Minutes 10 TA draw in Supine Exercise Name DL lift with SL ext 45 deg ext alt Side bilateral Reps/Minutes 15 september Supine Exercise Name foam roll september w/arms down then w/o Side bilateral Reps/Minutes 15 ea Prone Exercises hip ext Prone Exercise Name 1.quad hip ext 2.Quadruped alt UE/ LE ext Reps/Minutes 12 Comments cued TA/ level pelvis, LE glide into ext then lift w/ better PPT awareness Therapeutic Activity Therapeutic Activity sleep Comments s/l and supine propping w/ pillows and towels Manual Therapy Treatment Soft Tissue Mobilization glut med, pirformis Body Location L Mobilization Type Myofascial Release,Strumming, Sustained Pressure,Other Intensity/Depth Moderate Body Position Prone Comments w/hip IR/ER Joint Mobilizations sacrum Joint caudal and R UPA FM innominiate Direction IR FM L hip Joint L Direction on axis IR & ERFM Neuro Re-Education Treatment Other Activities motion Details IR/ER w/appropriate accessory motion PT-OP-T Assessment and Plan Start: 11/30/20 09:52 Freq: Status: Active Protocol: Document 01/11/21 09:02 [facility] (Rec: 01/11/21 09:56 [facility] [id number]) Physical Therapy Assessment Goals 5 Half-Way Goal (LTG) Pt will return to hiking as much as he enjoys without inc pain over 2/10. LTG Duration 01/30/21 4 Impairment activities Short Term Goal (STG) Pt will show imrpoved posture w/score of at least 4/5 on VCT and EFT in order to imrpove his postural stability and lfiting stability. STG Duration 01/01/21 Half-Way Goal (LTG) pt will be able to lift heavy loads w/good mechanics and without increased pain. LTG Duration 01/30/21 3 Impairment work Short Term Goal (STG) Pt will be able to work single shift with pain no greater than 2/10. STG Duration 01/01/21 Throw Out Clerk Goal (LTG) pt will be able to work double shift as needed without inc pain greater than 2/10 LTG Duration 01/30/21 2 Impairment strength Short Term Goal (STG) Pt will be indep w/HEP STG Duration 12/31/20 Throw Out Clerk Goal (LTG) pt will score at 5/5 on all BLE MMT and 3/5 on LPM to show imrpoved stability in order to dec pain w/his job. LTG Duration 01/30/21 1 Impairment DANICA 11/50 Short Term Goal (STG) Pt will improve DANICA score to no more than 7/50 to show improved functional ability. STG Duration 12/31/20 Throw Out Clerk Goal (LTG) Pt will improve DANICA score to no more than 2/50 to show improved functional ability. LTG Duration 01/30/21 Assessment Summary Assessment Pt did better with core exercises todaywith less cueing required throughout but still cueing needed for neutral spine position especially in quadruped. Improved hip rotationa fater manual therapy. Physical Therapy Plan Frequency and Duration Frequency of Treatment 1-2x/week Duration of Treatment 2 months Plan of Care Start Date 11/30/20 Plan of Care End Date 01/30/21 Next Visit Focus/Plan Next Note Type Treatment Note Next Visit Plan cont to progress core stability as tolerated, add glute strengthening
--- NOTE | 2021-01-18 09:41 | PT-OP ANOTE ---
Pt called and left message re: no show. Edu on no show policy and will DC if has another no show. Reminded of next scheduled appt
--- NOTE | 2021-01-26 10:00 | PT.OTN ---
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 He wakes in the night d/t pain and has to roll around to find something comfortable. Pt avoids lifting activities like rack of cups to avoid inc pain. 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 He did PT prior and that helped. He stretches a lot but has not been cont w/core exercises. Pain started getting progressively worse again in about Nov. He has to spend his day off stretching d/t being sore from working for the past week. Pt reprots last hiking late last summer and stopped d /t back hurting and weather change Prior Treatments and Tests Chiro-no help, PT-helped a year ago Treatment Goals Patient/Caregiver Goals Be able to make it through a work day without being a in a ton of pain by the end, return to hiking Personal Factors Other Personal Factors That May Effect depression, neuropathy Therapy/Recovery PT-OP-C Subjective Start: 11/30/20 09:52 Freq: Status: Active Protocol: Document 01/26/21 09:06 [facility] (Rec: 01/26/21 10:00 [facility] [id number]) OP-PT Subjective Patient Comments Patient Comments Pt reports he is dec how many days he works so that his off days are not as painful. Patient Reported Progress Improving PT-OP-D Balance Start: 11/30/20 09:52 Freq: Status: Active Protocol: Document 11/30/20 09:52 [facility] (Rec: 11/30/20 10:33 [facility] [id number]) Balance Tests Single Limb Standing Single Limb- Right slight trunk shear, occ UE use >30 sec Single Limb- Left siginifcant turnk lean and UE use >30 sec PT-OP-G Mobility & Gait Start: 11/30/20 09:52 Freq: Status: Active Protocol: Document 11/30/20 09:52 [facility] (Rec: 11/30/20 10:33 [facility] [id number]) OP Gait Assessment Comments Gait Comments Dec push off B PT-OP-J Posture/Palpation/Skin Start: 11/30/20 09:52 Freq: Status: Active Protocol: Document 01/26/21 09:06 [facility] (Rec: 01/26/21 09:50 [facility] [id number]) Posture Evaluation [facility] Postural Classification System Maricel Postural Classifications Posterior/Anterior Vertebral Compression Test 2 Elbow Flexion Test 2 Lumbar Protective Mechanism Left AP 1 Lumbar Protective Mechanism Right AP 1 Lumbar Protective Mechanism Left PA 3 Lumbar Protective Mechanism Right PA 3 Leg Swing Left Hard End Feel,Limited,Pain Leg Swing Right Hard End Feel,Limited PT-OP-K Range of Motion Start: 11/30/20 09:52 Freq: Status: Active Protocol: Document 11/30/20 09:52 [facility] (Rec: 11/30/20 10:33 [facility] [id number]) Lumbar Spine Range of Motion Lumbar Spine Active Degrees Flexion 71 Extension 20 Rotation Left 63 Rotation Right 70 Lateral Flexion Left 14 Lateral Flexion Right 20 Comments pain w/L SB & flex, L rot PT-OP-L Special Tests Start: 11/30/20 09:52 Freq: Status: Active Protocol: Document 11/30/20 09:52 [facility] (Rec: 11/30/20 10:33 [facility] [id number]) Special Tests Lumbar Spine Special Tests Arcenio Comments mild tightness B Straight Leg Raise Test Results 63 L w/back pain & HS tightnes , 90deg R HS tightness only Slump Test Results positive L PT-OP-M Strength Start: 11/30/20 09:52 Freq: Status: Active Protocol: Document 01/26/21 09:06 [facility] (Rec: 01/26/21 09:50 [facility] [id number]) Hip Strength Hip Manual Muscle Testing Right Flexion (L2) 5 Normal Extension (S1) 5 Normal Abduction 4+ Good+ Adduction 5 Normal External Rotation 5 Normal Internal Rotation 5 Normal Left Flexion (L2) 5 Normal Extension (S1) 4 Good Abduction 5 Normal Adduction 5 Normal External Rotation 5 Normal Internal Rotation 5 Normal Comments pain w/flex & IR, ext; abd hip tight Knee Strength Knee Manual Muscle Testing Right Flexion (S2) 5 Normal Extension (L3) 5 Normal Left Flexion (S2) 5 Normal Extension (L3) 5 Normal Ankle/Foot Strength Ankle and Foot Manual Muscle Testing Left Dorsiflexion (L4) 5 Normal Plantarflexion (S1) 5 Normal Right Dorsiflexion (L4) 5 Normal Plantarflexion (S1) 5 Normal Comments 20 heel raises PT-OP-Q Treatments Start: 11/30/20 09:52 Freq: Status: Active Protocol: Document 01/26/21 09:06 [facility] (Rec: 01/26/21 10:00 [facility] [id number]) Therapeutic Exercises Standing Exercises squat Standing Exercise Name working on no lumbar ext to initiate standing back up Reps/Minutes 10 Therapeutic Activity Therapeutic Activity work Comments 1. lifting (started w/bolster progressed to wted buckets) 2. hip hinge to work on reach w/bar 3. hip hinge w/pivot for reach vs spinal rotation Manual Therapy Treatment Soft Tissue Mobilization QL Body Location L and along L iliac crest & ES L Mobilization Type Rolling,Strumming Intensity/Depth Moderate Body Position Sidelying Joint Mobilizations lumbar Joint L4-5 Direction transverse R FM PT-OP-T Assessment and Plan Start: 11/30/20 09:52 Freq: Status: Active Protocol: Document 01/26/21 09:06 [facility] (Rec: 01/26/21 09:50 [facility] [id number]) Physical Therapy Assessment Goals 5 Prison Goal (LTG) Pt will return to hiking as much as he enjoys without inc pain over 01/26-does well flat but not very hilly hikes LTG Duration 03/29/21 4 Impairment activities Short Term Goal (STG) Pt will show imrpoved posture w/score of at least 4/5 on VCT and EFT in order to imrpove his postural stability and lfiting stability. 01/26 improved STG Duration 02/26/21 Prison Goal (LTG) pt will be able to lift heavy loads w/good mechanics and without increased pain. 01/26-improving but nees some cues LTG Duration 03/29/21 3 Impairment work Short Term Goal (STG) Pt will be able to work single shift with pain no greater than 2/10. 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 01/26-signficantly improved LTG Duration 03/29/21 1 Impairment DANICA 11/50 Short Term Goal (STG) Pt will improve DANICA score to no more than 7/50 to show improved functional ability. 01/26- no change STG Duration 02/26/21 Pattern Lease Inspector Goal (LTG) Pt will improve DANICA score to no more than 2/50 to show improved functional ability. 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 Significant time spent today w/hip hinge & pivoting & squat to avoid lumbar ext for work. Edu to work on this at work during slower times to improve this more to appropirate motor planning Physical Therapy Plan Frequency and Duration Frequency of Treatment 1-2x/week Duration of Treatment 2 months Plan of Care Start Date 01/26/21 Plan of Care End Date 03/29/21 Therapeutic Interventions Therapeutic Interventions Aquatic Therapy,Balance Training,Gait Training,Home Exercise Program,Joint Mobilizations,Manual Therapy, Neuromuscular Re-education, Patient/Caregiver Education, Self-Care/Home Management,Soft Tissue Mobilization,Taping, Therapeutic Activities, Therapeutic Exercises Modalities Cold Pack/Ice Massage,Electric Stimulation,Hot Packs, Infrared Therapy,Traction- Mechanical,Ultrasound Next Visit Focus/Plan Next Note Type Treatment Note Next Visit Plan cont to progress core stability as tolerated, work on rotational stability & squat & hip hinge ability
--- NOTE | 2021-01-26 10:01 | PT.OPPOC ---
Physical, Occupational & Speech Therapy At [facility] Current Diagnoses Dorsalgia, unspecified (01/26/21) Difficulty in walking, not elsewhere classified (01/26/21) Abnormal posture (01/26/21) Weakness (01/26/21) Visit Care Team Role Provider Type yCrus Alfredo MD Attending Provider Physician Primary Care Provider Referring Provider Specialty: [facility] Address: [address] [place] [address], [facility] Email: [email or web address] Plan Of Care PT-OP-T Assessment and Plan Start: 11/30/20 09:52 Freq: Status: Active Protocol: Document 01/26/21 09:06 [facility] (Rec: 01/26/21 09:50 [facility] [id number]) Physical Therapy Assessment Goals 5 Retirement Goal (LTG) Pt will return to hiking as much as he enjoys without inc pain over 09/01. 01/26-does well flat but not very hilly hikes LTG Duration 03/29/21 4 Impairment activities Short Term Goal (STG) Pt will show imrpoved posture w/score of at least 4/5 on VCT and EFT in order to imrpove his postural stability and lfiting stability. 01/26 improved STG Duration 02/26/21 Retirement Goal (LTG) pt will be able to lift heavy loads w/good mechanics and without increased pain. 01/26-improving but nees some cues LTG Duration 03/29/21 3 Impairment work Short Term Goal (STG) Pt will be able to work single shift with pain no greater than 2/10. 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 01/26-signficantly improved LTG Duration 03/29/21 1 Impairment DANICA Short Term Goal (STG) Pt will improve DANICA score to no more than 7/50 to show improved functional ability. 01/26- no change STG Duration 02/26/21 Retirement Goal (LTG) Pt will improve DANICA score to no more than 2/50 to show improved functional ability. 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 Significant time spent today w/hip hinge & pivoting & squat to avoid lumbar ext for work. Edu to work on this at work during slower times to improve this more to appropirate motor planning. He wouldb enefit from cont PT to work on improving core stability and imrpoved motor planning for work related activities. Physical Therapy Plan Frequency and Duration Frequency of Treatment 1-2x/week Duration of Treatment 2 months Plan of Care Start Date 01/26/21 Plan of Care End Date 03/29/21 Therapeutic Interventions Therapeutic Interventions Aquatic Therapy,Balance Training,Gait Training,Home Exercise Program,Joint Mobilizations,Manual Therapy, Neuromuscular Re-education, Patient/Caregiver Education, Self-Care/Home Management,Soft Tissue Mobilization,Taping, Therapeutic Activities, Therapeutic Exercises Modalities Cold Pack/Ice Massage,Electric Stimulation,Hot Packs, Infrared Therapy,Traction- Mechanical,Ultrasound Next Visit Focus/Plan Next Note Type Treatment Note Next Visit Plan cont to progress core stability as tolerated, work on rotational stability & squat & hip hinge ability Plan of Care Dates Plan of Care Start Date 01/26/21 Plan of Care End Date 03/29/21 Electronically Signed by: Azul Spears, PT 01/26/21 1001 Please Sign and Return: I have reviewed this Plan of Care and certify that the skilled therapy services above are required to meet the patient?s needs. Physician Signature Date Printed Name and Credentials Clinical Instructor Signature Printed Name and Credentials
--- NOTE | 2021-02-02 12:09 | PT.OTN ---
Current Diagnoses Dorsalgia, unspecified (02/02/21) Difficulty in walking, not elsewhere classified (02/02/21) Abnormal posture (02/02/21) Weakness (02/02/21) Physical Therapy Treatment Note PT-OP-A Visit Information Start: 11/30/20 09:52 Freq: Status: Active Protocol: Document 02/02/21 09:09 [facility] (Rec: 02/02/21 09:51 [facility] [id number]) Out-Patient Physical Therapy Visit Information Visit Information Visit Type Treatment Note Visit Start Time 09:08 Visit Stop Time 09:44 Total Visit Minutes 36 Visit Number 8 Number of RELIGIOUS ASSISTANT Visits 0 PT-OP-B Current Condition Start: 11/30/20 09:52 Freq: Status: Active Protocol: Document 11/30/20 09:52 [facility] (Rec: 11/30/20 10:33 [facility] [id number]) Current Condition History of Current Condition Onset Date 07/14/19 Current Complaints LBP and ant hip and sup glute and into ant thigh then occ into calf History of Current Condition Pt reports back just hurts a little bit all the time. He wakes in the night d/t pain and has to roll around to find something comfortable. Pt avoids lifting activities like rack of cups to avoid inc pain. 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 He did PT prior and that helped. He stretches a lot but has not been cont w/core exercises. Pain started getting progressively worse again in about Nov. He has to spend his day off stretching d/t being sore from working for the past week. Pt reprots last hiking late last summer and stopped d /t back hurting and weather change Prior Treatments and Tests Chiro-no help, PT-helped a year ago Treatment Goals Patient/Caregiver Goals Be able to make it through a work day without being a in a ton of pain by the end, return to hiking Personal Factors Other Personal Factors That May Effect depression, neuropathy Therapy/Recovery PT-OP-C Subjective Start: 11/30/20 09:52 Freq: Status: Active Protocol: Document 02/02/21 09:09 [facility] (Rec: 02/02/21 09:51 [facility] [id number]) OP-PT Subjective Patient Comments Patient Comments Pt reports some hip and leg soreness after walk/running [place] w/friends and walking to [employer]. Back felt okay after running which pleased him though. He is going down to 1x/week at his current job and considering looking locally for other opportunities. PT-OP-D Balance Start: 11/30/20 09:52 Freq: Status: Active Protocol: Document 11/30/20 09:52 [facility] (Rec: 11/30/20 10:33 [facility] [id number]) Balance Tests Single Limb Standing Single Limb- Right slight trunk shear, occ UE use >30 sec Single Limb- Left siginifcant turnk lean and UE use >30 sec PT-OP-G Mobility & Gait Start: 11/30/20 09:52 Freq: Status: Active Protocol: Document 11/30/20 09:52 [facility] (Rec: 11/30/20 10:33 [facility] [id number]) OP Gait Assessment Comments Gait Comments Dec push off B PT-OP-J Posture/Palpation/Skin Start: 11/30/20 09:52 Freq: Status: Active Protocol: Document 01/26/21 09:06 [facility] (Rec: 01/26/21 09:50 [facility] [id number]) Posture Evaluation [facility] Postural Classification System Maricel Postural Classifications Posterior/Anterior Vertebral Compression Test 2 Elbow Flexion Test 2 Lumbar Protective Mechanism Left AP 1 Lumbar Protective Mechanism Right AP 1 Lumbar Protective Mechanism Left PA 3 Lumbar Protective Mechanism Right PA 3 Leg Swing Left Hard End Feel,Limited,Pain Leg Swing Right Hard End Feel,Limited PT-OP-K Range of Motion Start: 11/30/20 09:52 Freq: Status: Active Protocol: Document 11/30/20 09:52 [facility] (Rec: 11/30/20 10:33 [facility] [id number]) Lumbar Spine Range of Motion Lumbar Spine Active Degrees Flexion 71 Extension 20 Rotation Left 63 Rotation Right 70 Lateral Flexion Left 14 Lateral Flexion Right 20 Comments pain w/L SB & flex, L rot PT-OP-L Special Tests Start: 11/30/20 09:52 Freq: Status: Active Protocol: Document 11/30/20 09:52 [facility] (Rec: 11/30/20 10:33 [facility] [id number]) Special Tests Lumbar Spine Special Tests Arcenio Comments mild tightness B Straight Leg Raise Test Results 63 L w/back pain & HS tightnes , 90deg R HS tightness only Slump Test Results positive L PT-OP-M Strength Start: 11/30/20 09:52 Freq: Status: Active Protocol: Document 01/26/21 09:06 [facility] (Rec: 01/26/21 09:50 [facility] [id number]) Hip Strength Hip Manual Muscle Testing Right Flexion (L2) 5 Normal Extension (S1) 5 Normal Abduction 4+ Good+ Adduction 5 Normal External Rotation 5 Normal Internal Rotation 5 Normal Left Flexion (L2) 5 Normal Extension (S1) 4 Good Abduction 5 Normal Adduction 5 Normal External Rotation 5 Normal Internal Rotation 5 Normal Comments pain w/flex & IR, ext; abd hip tight Knee Strength Knee Manual Muscle Testing Right Flexion (S2) 5 Normal Extension (L3) 5 Normal Left Flexion (S2) 5 Normal Extension (L3) 5 Normal Ankle/Foot Strength Ankle and Foot Manual Muscle Testing Left Dorsiflexion (L4) 5 Normal Plantarflexion (S1) 5 Normal Right Dorsiflexion (L4) 5 Normal Plantarflexion (S1) 5 Normal Comments 20 heel raises PT-OP-Q Treatments Start: 11/30/20 09:52 Freq: Status: Active Protocol: Document 02/02/21 09:09 [facility] (Rec: 02/02/21 09:51 [facility] [id number]) Therapeutic Activity Therapeutic Activity work Comments 1. lifting w/focus on good squat mechanics w/dowel on back 2. hip hinge to work on reaching w/UEs w/yard stick on back 3. staggereds tance hip hinge B w.reach Manual Therapy Treatment Soft Tissue Mobilization ITB Body Location L Mobilization Type Rolling,Strumming Intensity/Depth Moderate Body Position Hooklying Comments hip IR/ER hip flexor Body Location L iliacus, inguinal ligament Mobilization Type Myofascial Release,Strumming, Sustained Pressure Intensity/Depth Moderate Body Position Hooklying Comments w/hip IR/ER circumfrential MFR thigh w/IR/ ER Joint Mobilizations hip Joint L Direction on axis IR & ERFM PT-OP-T Assessment and Plan Start: 11/30/20 09:52 Freq: Status: Active Protocol: Document 02/02/21 09:09 [facility] (Rec: 02/02/21 09:51 [facility] [id number]) Physical Therapy Assessment Goals 5 Manganese Heater Goal (LTG) Pt will return to hiking as much as he enjoys without inc pain over 2/10. 01/26-does well flat but not very hilly hikes LTG Duration 03/29/21 4 Impairment activities Short Term Goal (STG) Pt will show imrpoved posture w/score of at least 4/5 on VCT and EFT in order to imrpove his postural stability and lfiting stability. 01/26 improved STG Duration 02/26/21 Manganese Heater Goal (LTG) pt will be able to lift heavy loads w/good mechanics and without increased pain. 01/26-improving but nees some cues LTG Duration 03/29/21 3 Impairment work Short Term Goal (STG) Pt will be able to work single shift with pain no greater than 2/10. 01/26-has been workingb ar shift sso long 8 hour shifts w/6/10 pain STG Duration 02/26/21 Manganese Heater Goal (LTG) pt will be able to work double shift as needed without inc pain greater than 2/10 LTG Duration 03/29/21 2 Impairment strength Short Term Goal (STG) Pt will be indep w/HEP 01/26-gets in 2x/week except stretches does daily STG Duration 02/26/21 Jail Goal (LTG) pt will score at 5/5 on all BLE MMT and 3/5 on LPM to show imrpoved stability in order to dec pain w/his job. 01/26-signficantly improved LTG Duration 03/29/21 1 Impairment DANICA 11/50 Short Term Goal (STG) Pt will improve DANICA score to no more than 7/50 to show improved functional ability. 01/26- no change STG Duration 02/26/21 Manganese Heater Goal (LTG) Pt will improve DANICA score to no more than 2/50 to show improved functional ability. 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 He did have improved ease of PROM hip L flex w/o ER after manual treatment. Physical Therapy Plan Frequency and Duration Frequency of Treatment 1-2x/week Duration of Treatment 2 months Plan of Care Start Date 01/26/21 Plan of Care End Date 03/29/21 Next Visit Focus/Plan Next Note Type Treatment Note Next Visit Plan cont to progress core stability as tolerated, work on rotational stability & squat & hip hinge ability
--- NOTE | 2021-02-09 09:51 | PT.OTN ---
Current Diagnoses Dorsalgia, unspecified (02/09/21) Difficulty in walking, not elsewhere classified (02/09/21) Abnormal posture (02/09/21) Weakness (02/09/21) Physical Therapy Treatment Note PT-OP-A Visit Information Start: 11/30/20 09:52 Freq: Status: Active Protocol: Document 02/09/21 09:42 [facility] (Rec: 02/09/21 09:51 [facility] [id number]) Out-Patient Physical Therapy Visit Information Visit Information Visit Type Treatment Note Visit Start Time 09:04 Visit Stop Time 09:40 Total Visit Minutes 36 Visit Number 9 Number of DOOR BUILDER Visits 0 PT-OP-B Current Condition Start: 11/30/20 09:52 Freq: Status: Active Protocol: Document 11/30/20 09:52 [facility] (Rec: 11/30/20 10:33 [facility] [id number]) Current Condition History of Current Condition Onset Date 07/14/19 Current Complaints LBP and ant hip and sup glute and into ant thigh then occ into calf History of Current Condition Pt reports back just hurts a little bit all the time. He wakes in the night d/t pain and has to roll around to find something comfortable. Pt avoids lifting activities like rack of cups to avoid inc pain. 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 He did PT prior and that helped. He stretches a lot but has not been cont w/core exercises. Pain started getting progressively worse again in about Nov. He has to spend his day off stretching d/t being sore from working for the past week. Pt reprots last hiking late last summer and stopped d /t back hurting and weather change Prior Treatments and Tests Chiro-no help, PT-helped a year ago Treatment Goals Patient/Caregiver Goals Be able to make it through a work day without being a in a ton of pain by the end, return to hiking Personal Factors Other Personal Factors That May Effect depression, neuropathy Therapy/Recovery PT-OP-C Subjective Start: 11/30/20 09:52 Freq: Status: Active Protocol: Document 02/09/21 09:42 [facility] (Rec: 02/09/21 09:51 [facility] [id number]) OP-PT Subjective Patient Comments Patient Comments pt reports going to [employer] and doing roller coaster and notes made back sore PT-OP-D Balance Start: 11/30/20 09:52 Freq: Status: Active Protocol: Document 11/30/20 09:52 [facility] (Rec: 11/30/20 10:33 [facility] [id number]) Balance Tests Single Limb Standing Single Limb- Right slight trunk shear, occ UE use >30 sec Single Limb- Left siginifcant turnk lean and UE use >30 sec PT-OP-G Mobility & Gait Start: 11/30/20 09:52 Freq: Status: Active Protocol: Document 11/30/20 09:52 [facility] (Rec: 11/30/20 10:33 [facility] [id number]) OP Gait Assessment Comments Gait Comments Dec push off B PT-OP-J Posture/Palpation/Skin Start: 11/30/20 09:52 Freq: Status: Active Protocol: Document 01/26/21 09:06 [facility] (Rec: 01/26/21 09:50 [facility] [id number]) Posture Evaluation [facility] Postural Classification System [facility] Postural Classifications Posterior/Anterior Vertebral Compression Test 2 Elbow Flexion Test 2 Lumbar Protective Mechanism Left AP 1 Lumbar Protective Mechanism Right AP 1 Lumbar Protective Mechanism Left PA 3 Lumbar Protective Mechanism Right PA 3 Leg Swing Left Hard End Feel,Limited,Pain Leg Swing Right Hard End Feel,Limited PT-OP-K Range of Motion Start: 11/30/20 09:52 Freq: Status: Active Protocol: Document 11/30/20 09:52 [facility] (Rec: 11/30/20 10:33 [facility] [id number]) Lumbar Spine Range of Motion Lumbar Spine Active Degrees Flexion 71 Extension 20 Rotation Left 63 Rotation Right 70 Lateral Flexion Left 14 Lateral Flexion Right 20 Comments pain w/L SB & flex, L rot PT-OP-L Special Tests Start: 11/30/20 09:52 Freq: Status: Active Protocol: Document 11/30/20 09:52 [facility] (Rec: 11/30/20 10:33 [facility] [id number]) Special Tests Lumbar Spine Special Tests Arcenio Comments mild tightness B Straight Leg Raise Test Results 63 L w/back pain & HS tightnes , 90deg R HS tightness only Slump Test Results positive L PT-OP-M Strength Start: 11/30/20 09:52 Freq: Status: Active Protocol: Document 01/26/21 09:06 [facility] (Rec: 01/26/21 09:50 [facility] [id number]) Hip Strength Hip Manual Muscle Testing Right Flexion (L2) 5 Normal Extension (S1) 5 Normal Abduction 4+ Good+ Adduction 5 Normal External Rotation 5 Normal Internal Rotation 5 Normal Left Flexion (L2) 5 Normal Extension (S1) 4 Good Abduction 5 Normal Adduction 5 Normal External Rotation 5 Normal Internal Rotation 5 Normal Comments pain w/flex & IR, ext; abd hip tight Knee Strength Knee Manual Muscle Testing Right Flexion (S2) 5 Normal Extension (L3) 5 Normal Left Flexion (S2) 5 Normal Extension (L3) 5 Normal Ankle/Foot Strength Ankle and Foot Manual Muscle Testing Left Dorsiflexion (L4) 5 Normal Plantarflexion (S1) 5 Normal Right Dorsiflexion (L4) 5 Normal Plantarflexion (S1) 5 Normal Comments 20 heel raises PT-OP-Q Treatments Start: 11/30/20 09:52 Freq: Status: Active Protocol: Document 02/09/21 09:42 [facility] (Rec: 02/09/21 09:51 [facility] [id number]) Gym Equipment Sport Cord wt shifts Exercise Details fwd B w/progression to wt shift w/SLS for wt acceptance Therapeutic Exercises Standing Exercises wall posture Standing Exercise Name w/90/90 ER Side bilateral Reps/Minutes 15 Therapeutic Activity Therapeutic Activity posture Name standing in mirror Manual Therapy Treatment Soft Tissue Mobilization QL Body Location L and along L iliac crest & ES L Mobilization Type Rolling,Strumming Intensity/Depth Moderate Body Position Sidelying Comments w/basking seal hip flexor Body Location L iliacus and sup ant iliac crest Mobilization Type Myofascial Release,Strumming, Sustained Pressure Intensity/Depth Moderate Body Position Sidelying Comments w/hip IR/ER PT-OP-T Assessment and Plan Start: 11/30/20 09:52 Freq: Status: Active Protocol: Document 02/09/21 09:42 [facility] (Rec: 02/09/21 09:51 [facility] [id number]) Physical Therapy Assessment Goals 5 Retirement Goal (LTG) Pt will return to hiking as much as he enjoys without inc pain over 01/26-does well flat but not very hilly hikes LTG Duration 03/29/21 4 Impairment activities Short Term Goal (STG) Pt will show imrpoved posture w/score of at least 4/5 on VCT and EFT in order to imrpove his postural stability and lfiting stability. 01/26 improved STG Duration 02/26/21 Retirement Goal (LTG) pt will be able to lift heavy loads w/good mechanics and without increased pain. 01/26-improving but nees some cues LTG Duration 03/29/21 3 Impairment work Short Term Goal (STG) Pt will be able to work single shift with pain no greater than 2/10. 01/26-has been workingb ar shift sso long 8 hour shifts w/6/10 pain STG Duration 02/26/21 Senior Interactive Producer Goal (LTG) pt will be able to work double shift as needed without inc pain greater than 2/10 LTG Duration 03/29/21 2 Impairment strength Short Term Goal (STG) Pt will be indep w/HEP 01/26-gets in 2x/week except stretches does daily STG Duration 02/26/21 Retirement Goal (LTG) pt will score at 5/5 on all BLE MMT and 3/5 on LPM to show imrpoved stability in order to dec pain w/his job. 01/26-signficantly improved LTG Duration 03/29/21 1 Impairment DANICA 11/50 Short Term Goal (STG) Pt will improve DANICA score to no more than 7/50 to show improved functional ability. 01/26- no change STG Duration 02/26/21 Senior Interactive Producer Goal (LTG) Pt will improve DANICA score to no more than 2/50 to show improved functional ability. LTG Duration 03/29/21 Assessment Summary Assessment pt requried cues and mirror to recognize that he tilts left in standing. Edu to work on posture and work on wt shift and wt acceptance as he tilts L w/torso w/both RLE & LLE wt shift and wt acceptance Physical Therapy Plan Frequency and Duration Frequency of Treatment 1-2x/week Duration of Treatment 2 months Plan of Care Start Date 01/26/21 Plan of Care End Date 03/29/21 Next Visit Focus/Plan Next Note Type Treatment Note Next Visit Plan cont to progress core stability, work on posture & gait
--- NOTE | 2021-02-23 18:55 | PT.OTN ---
Current Diagnoses Dorsalgia, unspecified (02/23/21) Difficulty in walking, not elsewhere classified (02/23/21) Abnormal posture (02/23/21) Weakness (02/23/21) Physical Therapy Treatment Note PT-OP-A Visit Information Start: 11/30/20 09:52 Freq: Status: Active Protocol: Document 02/23/21 18:49 [facility] (Rec: 02/23/21 18:55 [facility] [id number]) Out-Patient Physical Therapy Visit Information Visit Information Visit Type Treatment Note Visit Start Time 09:50 Visit Stop Time 10:27 Total Visit Minutes 37 Visit Number 10 Number of MACHINIST/MACHINE BUILDER Visits 0 PT-OP-B Current Condition Start: 11/30/20 09:52 Freq: Status: Active Protocol: Document 11/30/20 09:52 [facility] (Rec: 11/30/20 10:33 [facility] [id number]) Current Condition History of Current Condition Onset Date 07/14/19 Current Complaints LBP and ant hip and sup glute and into ant thigh then occ into calf History of Current Condition Pt reports back just hurts a little bit all the time. He wakes in the night d/t pain and has to roll around to find something comfortable. Pt avoids lifting activities like rack of cups to avoid inc pain. 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 He did PT prior and that helped. He stretches a lot but has not been cont w/core exercises. Pain started getting progressively worse again in about Nov. He has to spend his day off stretching d/t being sore from working for the past week. Pt reprots last hiking late last summer and stopped d /t back hurting and weather change Prior Treatments and Tests Chiro-no help, PT-helped a year ago Treatment Goals Patient/Caregiver Goals Be able to make it through a work day without being a in a ton of pain by the end, return to hiking Personal Factors Other Personal Factors That May Effect depression, neuropathy Therapy/Recovery PT-OP-C Subjective Start: 11/30/20 09:52 Freq: Status: Active Protocol: Document 02/23/21 18:49 [facility] (Rec: 02/23/21 18:55 [facility] [id number]) OP-PT Subjective Patient Comments Patient Comments Pt reprots he has been working about 3-4 days a week which is less so its better for his back. 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 he has been focusing on his mechanics at work. pt notes he has been icing after work too whcih is helpful PT-OP-D Balance Start: 11/30/20 09:52 Freq: Status: Active Protocol: Document 11/30/20 09:52 [facility] (Rec: 11/30/20 10:33 [facility] [id number]) Balance Tests Single Limb Standing Single Limb- Right slight trunk shear, occ UE use >30 sec Single Limb- Left siginifcant turnk lean and UE use >30 sec PT-OP-G Mobility & Gait Start: 11/30/20 09:52 Freq: Status: Active Protocol: Document 11/30/20 09:52 [facility] (Rec: 11/30/20 10:33 [facility] [id number]) OP Gait Assessment Comments Gait Comments Dec push off B PT-OP-J Posture/Palpation/Skin Start: 11/30/20 09:52 Freq: Status: Active Protocol: Document 01/26/21 09:06 [facility] (Rec: 01/26/21 09:50 [facility] [id number]) Posture Evaluation [facility] Postural Classification System [facility] Postural Classifications Posterior/Anterior Vertebral Compression Test 2 Elbow Flexion Test 2 Lumbar Protective Mechanism Left AP 1 Lumbar Protective Mechanism Right AP 1 Lumbar Protective Mechanism Left PA 3 Lumbar Protective Mechanism Right PA 3 Leg Swing Left Hard End Feel,Limited,Pain Leg Swing Right Hard End Feel,Limited PT-OP-K Range of Motion Start: 11/30/20 09:52 Freq: Status: Active Protocol: Document 11/30/20 09:52 [facility] (Rec: 11/30/20 10:33 [facility] [id number]) Lumbar Spine Range of Motion Lumbar Spine Active Degrees Flexion 71 Extension 20 Rotation Left 63 Rotation Right 70 Lateral Flexion Left 14 Lateral Flexion Right 20 Comments pain w/L SB & flex, L rot PT-OP-L Special Tests Start: 11/30/20 09:52 Freq: Status: Active Protocol: Document 11/30/20 09:52 [facility] (Rec: 11/30/20 10:33 [facility] [id number]) Special Tests Lumbar Spine Special Tests rAcenio Comments mild tightness B Straight Leg Raise Test Results 63 L w/back pain & HS tightnes , 90deg R HS tightness only Slump Test Results positive L PT-OP-M Strength Start: 11/30/20 09:52 Freq: Status: Active Protocol: Document 01/26/21 09:06 [facility] (Rec: 01/26/21 09:50 [facility] [id number]) Hip Strength Hip Manual Muscle Testing Right Flexion (L2) 5 Normal Extension (S1) 5 Normal Abduction 4+ Good+ Adduction 5 Normal External Rotation 5 Normal Internal Rotation 5 Normal Left Flexion (L2) 5 Normal Extension (S1) 4 Good Abduction 5 Normal Adduction 5 Normal External Rotation 5 Normal Internal Rotation 5 Normal Comments pain w/flex & IR, ext; abd hip tight Knee Strength Knee Manual Muscle Testing Right Flexion (S2) 5 Normal Extension (L3) 5 Normal Left Flexion (S2) 5 Normal Extension (L3) 5 Normal Ankle/Foot Strength Ankle and Foot Manual Muscle Testing Left Dorsiflexion (L4) 5 Normal Plantarflexion (S1) 5 Normal Right Dorsiflexion (L4) 5 Normal Plantarflexion (S1) 5 Normal Comments 20 heel raises PT-OP-Q Treatments Start: 11/30/20 09:52 Freq: Status: Active Protocol: Document 02/23/21 18:49 [facility] (Rec: 02/23/21 18:55 [facility] [id number]) Gym Equipment Sport Cord wt shifts Exercise Details fwd B w/progression to wt shift w/SLS for wt acceptance Therapeutic Exercises Standing Exercises lunge Standing Exercise Name side Side bilateral Reps/Minutes 10 Comments mirror hip hike Side bilateral Reps/Minutes 8 Comments 4 in step w/rail squat Standing Exercise Name working on no lumbar ext to initiate standing back up Reps/Minutes 5 hip gutierrez Side bilateral Reps/Minutes 5 Gait Training Gait Activity wt shifts Description in mirror Comments 1. fwd to front leg B 2. fwd w/step through B Manual Therapy Treatment Soft Tissue Mobilization QL Body Location L and along L iliac crest & ES L Mobilization Type Rolling,Strumming Intensity/Depth Moderate Body Position Sidelying Comments w/basking seal Joint Mobilizations innominiate Joint L Direction ext & ER FM PT-OP-T Assessment and Plan Start: 11/30/20 09:52 Freq: Status: Active Protocol: Document 02/23/21 18:49 [facility] (Rec: 02/23/21 18:55 [facility] [id number]) Physical Therapy Assessment Goals 5 Halfway Goal (LTG) Pt will return to hiking as much as he enjoys without inc pain over 2. 01/26-does well flat but not very hilly hikes LTG Duration 03/29/21 4 Impairment activities Short Term Goal (STG) Pt will show imrpoved posture w/score of at least 4/5 on VCT and EFT in order to imrpove his postural stability and lfiting stability. 01/26 improved STG Duration 02/26/21 Halfway Goal (LTG) pt will be able to lift heavy loads w/good mechanics and without increased pain. 01/26-improving but nees some cues LTG Duration 03/29/21 3 Impairment work Short Term Goal (STG) Pt will be able to work single shift with pain no greater than 2/10. 01/26-has been workingb ar shift sso long 8 hour shifts w/6/10 pain STG Duration 02/26/21 Bean Picker Goal (LTG) pt will be able to work double shift as needed without inc pain greater than 2/10 LTG Duration 03/29/21 2 Impairment strength Short Term Goal (STG) Pt will be indep w/HEP 01/26-gets in 2x/week except stretches does daily STG Duration 02/26/21 Bean Picker Goal (LTG) pt will score at 5/5 on all BLE MMT and 3/5 on LPM to show imrpoved stability in order to dec pain w/his job. 01/26-signficantly improved LTG Duration 03/29/21 1 Impairment DANICA 11/50 Short Term Goal (STG) Pt will improve DANICA score to no more than 7/50 to show improved functional ability. 01/26- no change STG Duration 02/26/21 Bean Picker Goal (LTG) Pt will improve DANICA score to no more than 2/50 to show improved functional ability. LTG Duration 03/29/21 Assessment Summary Assessment Pt idd better with wt shifts today but still requries cues on LLE for full wt acceptance to LLE. He has difficulty with lat lunge to L w/signfiicant weakness on L side but no pain . Physical Therapy Plan Frequency and Duration Frequency of Treatment 1-2x/week Duration of Treatment 2 months Plan of Care Start Date 01/26/21 Plan of Care End Date 03/29/21 Next Visit Focus/Plan Next Note Type Treatment Note Next Visit Plan cont to progress core stability, work on posture & gait
--- NOTE | 2021-03-08 12:02 | PT.OTN ---
Current Diagnoses Dorsalgia, unspecified (03/08/21) Difficulty in walking, not elsewhere classified (03/08/21) Abnormal posture (03/08/21) Weakness (03/08/21) Physical Therapy Treatment Note PT-OP-A Visit Information Start: 11/30/20 09:52 Freq: Status: Active Protocol: Document 03/08/21 11:18 [facility] (Rec: 03/08/21 12:02 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 (Rec: 11/30/20 10:33 [facility] [id number]) Current Condition History of Current Condition Onset Date 07/14/19 Current Complaints LBP and ant hip and sup glute and into ant thigh then occ into calf History of Current Condition Pt reports back just hurts a little bit all the time. He wakes in the night d/t pain and has to roll around to find something comfortable. Pt avoids lifting activities like rack of cups to avoid inc pain. 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 He did PT prior and that helped. He stretches a lot but has not been cont w/core exercises. Pain started getting progressively worse again in about Nov. He has to spend his day off stretching d/t being sore from working for the past week. Pt reprots last hiking late last summer and stopped d /t back hurting and weather change Prior Treatments and Tests Chiro-no help, PT-helped a year ago Treatment Goals Patient/Caregiver Goals Be able to make it through a work day without being a in a ton of pain by the end, return to hiking Personal Factors Other Personal Factors That May Effect depression, neuropathy Therapy/Recovery PT-OP-C Subjective Start: 11/30/20 09:52 Freq: Status: Active Protocol: Document 03/08/21 11:18 [facility] (Rec: 03/08/21 12:02 [facility] [id number]) OP-PT Subjective Patient Comments Patient Comments Pt reports having to sleep on the couch while family visited which made his back sore. Notes leg has been okay. PT-OP-D Balance Start: 11/30/20 09:52 Freq: Status: Active Protocol: Document 11/30/20 09:52 [facility] (Rec: 11/30/20 10:33 [facility] [id number]) Balance Tests Single Limb Standing Single Limb- Right slight trunk shear, occ UE use >30 sec Single Limb- Left siginifcant turnk lean and UE use >30 sec PT-OP-G Mobility & Gait Start: 11/30/20 09:52 Freq: Status: Active Protocol: Document 11/30/20 09:52 [facility] (Rec: 11/30/20 10:33 [facility] [id number]) OP Gait Assessment Comments Gait Comments Dec push off B PT-OP-J Posture/Palpation/Skin Start: 11/30/20 09:52 Freq: Status: Active Protocol: Document 01/26/21 09:06 [facility] (Rec: 01/26/21 09:50 [facility] [id number]) Posture Evaluation [facility] Postural Classification System [facility] Postural Classifications Posterior/Anterior Vertebral Compression Test 2 Elbow Flexion Test 2 Lumbar Protective Mechanism Left AP 1 Lumbar Protective Mechanism Right AP 1 Lumbar Protective Mechanism Left PA 3 Lumbar Protective Mechanism Right PA 3 Leg Swing Left Hard End Feel,Limited,Pain Leg Swing Right Hard End Feel,Limited PT-OP-K Range of Motion Start: 11/30/20 09:52 Freq: Status: Active Protocol: Document 11/30/20 09:52 [facility] (Rec: 11/30/20 10:33 [facility] [id number]) Lumbar Spine Range of Motion Lumbar Spine Active Degrees Flexion 71 Extension 20 Rotation Left 63 Rotation Right 70 Lateral Flexion Left 14 Lateral Flexion Right 20 Comments pain w/L SB & flex, L rot PT-OP-L Special Tests Start: 11/30/20 09:52 Freq: Status: Active Protocol: Document 11/30/20 09:52 [facility] (Rec: 11/30/20 10:33 [facility] [id number]) Special Tests Lumbar Spine Special Tests Arcenio Comments mild tightness B Straight Leg Raise Test Results 63 L w/back pain & HS tightnes , 90deg R HS tightness only Slump Test Results positive L PT-OP-M Strength Start: 11/30/20 09:52 Freq: Status: Active Protocol: Document 01/26/21 09:06 [facility] (Rec: 01/26/21 09:50 [facility] [id number]) Hip Strength Hip Manual Muscle Testing Right Flexion (L2) 5 Normal Extension (S1) 5 Normal Abduction 4+ Good+ Adduction 5 Normal External Rotation 5 Normal Internal Rotation 5 Normal Left Flexion (L2) 5 Normal Extension (S1) 4 Good Abduction 5 Normal Adduction 5 Normal External Rotation 5 Normal Internal Rotation 5 Normal Comments pain w/flex & IR, ext; abd hip tight Knee Strength Knee Manual Muscle Testing Right Flexion (S2) 5 Normal Extension (L3) 5 Normal Left Flexion (S2) 5 Normal Extension (L3) 5 Normal Ankle/Foot Strength Ankle and Foot Manual Muscle Testing Left Dorsiflexion (L4) 5 Normal Plantarflexion (S1) 5 Normal Right Dorsiflexion (L4) 5 Normal Plantarflexion (S1) 5 Normal Comments 20 heel raises PT-OP-Q Treatments Start: 11/30/20 09:52 Freq: Status: Active Protocol: Document 03/08/21 11:18 [facility] (Rec: 03/08/21 12:02 [facility] [id number]) Therapeutic Exercises Prone Exercises plank Prone Exercise Name knees & foreamrs Side bilateral Reps/Minutes 30 sec x2 Sidelying Exercises plank Sidelying Exercise Name forearm and knees Side bilateral Reps/Minutes 20 sec x2 Standing Exercises lunge Standing Exercise Name side & fwd Side bilateral Reps/Minutes 10 Comments mirror hip hike Side bilateral Reps/Minutes 8 Comments 4 in step w/rail Manual Therapy Treatment Soft Tissue Mobilization QL Body Location L and along L iliac crest & ES L Mobilization Type Rolling,Strumming Intensity/Depth Moderate Body Position Sidelying Comments w/post dep hip flexor Body Location L iliacus Mobilization Type Myofascial Release,Strumming, Sustained Pressure Intensity/Depth Moderate Body Position Supine Joint Mobilizations sacrum Joint L UPA Body Position Sidelying Comments w/ ER innominiate Joint L Direction ER FM Neuro Re-Education Treatment Other Activities PNF Details post dep Comments 1. rhythmic iniation 2. combo of isotonics progressed to w/LE pattern 3. sustained holds progressed to w/LE pattern PT-OP-T Assessment and Plan Start: 11/30/20 09:52 Freq: Status: Active Protocol: Document 03/08/21 11:18 [facility] (Rec: 03/08/21 12:02 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 01/26-does well flat but not very hilly hikes LTG Duration 03/29/21 4 Impairment activities Short Term Goal (STG) Pt will show imrpoved posture w/score of at least 4/5 on VCT and EFT in order to imrpove his postural stability and lfiting stability. 01/26 improved STG Duration 02/26/21 Care Home Goal (LTG) pt will be able to lift heavy loads w/good mechanics and without increased pain. 01/26-improving but nees some cues LTG Duration 03/29/21 3 Impairment work Short Term Goal (STG) Pt will be able to work single shift with pain no greater than 2/10. 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 01/26-signficantly improved LTG Duration 03/29/21 1 Impairment DANICA 11/50 Short Term Goal (STG) Pt will improve DANICA score to no more than 7/50 to show improved functional ability. 01/26- no change STG Duration 02/26/21 Care Home Goal (LTG) Pt will improve DANICA score to no more than 2/50 to show improved functional ability. LTG Duration 03/29/21 Assessment Summary Assessment Pt had difficulty with hip hike exercise still with BLEs. He did well with planks but was challenged by them when kept in more neutral posture. Improved post dep w/maual treatment and imrpoved ER ROM. Pt noted feeling nausea w/hip flexor work so stopped. Pt noted he has been having difficulty w/reflux where he gets nausea and occ vomits if he doesn't eat in AM and didn 't eat this AM. Encouraged to talk to re: this and to call and make an appt. Physical Therapy Plan Frequency and Duration Frequency of Treatment 1-2x/week Duration of Treatment 2 months Plan of Care Start Date 01/26/21 Plan of Care End Date 03/29/21 Next Visit Focus/Plan Next Note Type Treatment Note Next Visit Plan cont to progress core stability, work on posture & gait
--- NOTE | 2021-03-16 12:02 | PT.OTN ---
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 He wakes in the night d/t pain and has to roll around to find something comfortable. Pt avoids lifting activities like rack of cups to avoid inc pain. 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 He did PT prior and that helped. He stretches a lot but has not been cont w/core exercises. Pain started getting progressively worse again in about Nov. He has to spend his day off stretching d/t being sore from working for the past week. Pt reprots last hiking late last summer and stopped d /t back hurting and weather change Prior Treatments and Tests Chiro-no help, PT-helped a year ago Treatment Goals Patient/Caregiver Goals Be able to make it through a work day without being a in a ton of pain by the end, return to hiking Personal Factors Other Personal Factors That May Effect depression, neuropathy Therapy/Recovery PT-OP-C Subjective Start: 11/30/20 09:52 Freq: Status: Active Protocol: Document 03/16/21 11:18 [facility] (Rec: 03/16/21 12:02 [facility] [id number]) OP-PT Subjective Patient Comments Patient Comments Pt reports he woke up last w/upper back pain and was able to improve it when foam rolling but started again while stretching in waiting room. going to see chiro hopefully PT-OP-D Balance Start: 11/30/20 09:52 Freq: Status: Active Protocol: Document 11/30/20 09:52 [facility] (Rec: 11/30/20 10:33 [facility] [id number]) Balance Tests Single Limb Standing Single Limb- Right slight trunk shear, occ UE use >30 sec Single Limb- Left siginifcant turnk lean and UE use >30 sec PT-OP-G Mobility & Gait Start: 11/30/20 09:52 Freq: Status: Active Protocol: Document 11/30/20 09:52 [facility] (Rec: 11/30/20 10:33 [facility] [id number]) OP Gait Assessment Comments Gait Comments Dec push off B PT-OP-J Posture/Palpation/Skin Start: 11/30/20 09:52 Freq: Status: Active Protocol: Document 01/26/21 09:06 [facility] (Rec: 01/26/21 09:50 [facility] [id number]) Posture Evaluation [facility] Postural Classification System [facility] Postural Classifications Posterior/Anterior Vertebral Compression Test 2 Elbow Flexion Test 2 Lumbar Protective Mechanism Left AP 1 Lumbar Protective Mechanism Right AP 1 Lumbar Protective Mechanism Left PA 3 Lumbar Protective Mechanism Right PA 3 Leg Swing Left Hard End Feel,Limited,Pain Leg Swing Right Hard End Feel,Limited PT-OP-K Range of Motion Start: 11/30/20 09:52 Freq: Status: Active Protocol: Document 11/30/20 09:52 [facility] (Rec: 11/30/20 10:33 [facility] [id number]) Lumbar Spine Range of Motion Lumbar Spine Active Degrees Flexion 71 Extension 20 Rotation Left 63 Rotation Right 70 Lateral Flexion Left 14 Lateral Flexion Right 20 Comments pain w/L SB & flex, L rot PT-OP-L Special Tests Start: 11/30/20 09:52 Freq: Status: Active Protocol: Document 11/30/20 09:52 [facility] (Rec: 11/30/20 10:33 [facility] [id number]) Special Tests Lumbar Spine Special Tests Arcenio Comments mild tightness B Straight Leg Raise Test Results 63 L w/back pain & HS tightnes , 90deg R HS tightness only Slump Test Results positive L PT-OP-M Strength Start: 11/30/20 09:52 Freq: Status: Active Protocol: Document 01/26/21 09:06 [facility] (Rec: 01/26/21 09:50 [facility] [id number]) Hip Strength Hip Manual Muscle Testing Right Flexion (L2) 5 Normal Extension (S1) 5 Normal Abduction 4+ Good+ Adduction 5 Normal External Rotation 5 Normal Internal Rotation 5 Normal Left Flexion (L2) 5 Normal Extension (S1) 4 Good Abduction 5 Normal Adduction 5 Normal External Rotation 5 Normal Internal Rotation 5 Normal Comments pain w/flex & IR, ext; abd hip tight Knee Strength Knee Manual Muscle Testing Right Flexion (S2) 5 Normal Extension (L3) 5 Normal Left Flexion (S2) 5 Normal Extension (L3) 5 Normal Ankle/Foot Strength Ankle and Foot Manual Muscle Testing Left Dorsiflexion (L4) 5 Normal Plantarflexion (S1) 5 Normal Right Dorsiflexion (L4) 5 Normal Plantarflexion (S1) 5 Normal Comments 20 heel raises PT-OP-Q Treatments Start: 11/30/20 09:52 Freq: Status: Active Protocol: Document 03/16/21 11:18 [facility] (Rec: 03/16/21 12:02 [facility] [id number]) Therapeutic Exercises Supine Exercises LTR Side bilateral Reps/Minutes 5 Standing Exercises lunge Standing Exercise Name side Side bilateral Reps/Minutes 10 Comments mirror hip hike Side bilateral Reps/Minutes 15 Comments 4 in step w/rail squat Standing Exercise Name working on no lumbar ext to initiate standing back up Reps/Minutes 15 Manual Therapy Treatment Soft Tissue Mobilization QL Body Location L and along L iliac crest & ES L Mobilization Type Rolling,Strumming Intensity/Depth Moderate Body Position Sidelying Comments w/post dep hip flexor Body Location L iliacus Mobilization Type Myofascial Release,Strumming, Sustained Pressure Intensity/Depth Moderate Body Position Supine PT-OP-T Assessment and Plan Start: 11/30/20 09:52 Freq: Status: Active Protocol: Document 03/16/21 11:18 [facility] (Rec: 03/16/21 12:02 [facility] [id number]) Physical Therapy Assessment 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 01/26-improving but nees some cues LTG Duration 03/29/21 3 Impairment work Short Term Goal (STG) Pt will be able to work single shift with pain no greater than 2/10. 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 01/26-signficantly improved LTG Duration 03/29/21 1 Impairment DANICA 11/50 Short Term Goal (STG) Pt will improve DANICA score to no more than 7/50 to show improved functional ability. 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 LTG Duration 03/29/21 Assessment Summary Assessment Pt had improved soft tissue moblity of iliacus today. He is improving w/ability to get ant elevation & post dep. Pt did note pain was more in upper back after session Physical Therapy Plan Frequency and Duration Frequency of Treatment 1-2x/week Duration of Treatment 2 months Plan of Care Start Date 01/26/21 Plan of Care End Date 03/29/21 Next Visit Focus/Plan Next Note Type Discharge Summary Next Visit Plan review exercises for DC
--- NOTE | 2021-04-12 09:50 | PT.OTN ---
Current Diagnoses Dorsalgia, unspecified (04/12/21) Difficulty in walking, not elsewhere classified (04/12/21) Abnormal posture (04/12/21) Weakness (04/12/21) Physical Therapy Treatment Note PT-OP-A Visit Information Start: 11/30/20 09:52 Freq: Status: Active Protocol: Document 04/12/21 09:00 [facility] (Rec: 04/12/21 09:50 [facility] [id number]) Out-Patient Physical Therapy Visit Information Visit Information Visit Type Discharge Summary Visit Start Time 09:07 Visit Stop Time 09:42 Total Visit Minutes 35 Visit Number 13 Number of SUPERVISOR IN CHARGE Visits 0 PT-OP-B Current Condition Start: 11/30/20 09:52 Freq: Status: Active Protocol: Document 11/30/20 09:52 [facility] (Rec: 11/30/20 10:33 [facility] [id number]) Current Condition History of Current Condition Onset Date 07/14/19 Current Complaints LBP and ant hip and sup glute and into ant thigh then occ into calf History of Current Condition Pt reports back just hurts a little bit all the time. He wakes in the night d/t pain and has to roll around to find something comfortable. Pt avoids lifting activities like rack of cups to avoid inc pain. 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 He did PT prior and that helped. He stretches a lot but has not been cont w/core exercises. Pain started getting progressively worse again in about Nov. He has to spend his day off stretching d/t being sore from working for the past week. Pt reprots last hiking late last summer and stopped d /t back hurting and weather change Prior Treatments and Tests Chiro-no help, PT-helped a year ago Treatment Goals Patient/Caregiver Goals Be able to make it through a work day without being a in a ton of pain by the end, return to hiking Personal Factors Other Personal Factors That May Effect depression, neuropathy Therapy/Recovery PT-OP-C Subjective Start: 11/30/20 09:52 Freq: Status: Active Protocol: Document 04/12/21 09:00 [facility] (Rec: 04/12/21 09:50 [facility] [id number]) OP-PT Subjective Patient Comments Patient Comments Pt reports pain has been pretty good recently. He notes he just fell asleep about an hour ago so is still and sore. PT-OP-D Balance Start: 11/30/20 09:52 Freq: Status: Active Protocol: Document 11/30/20 09:52 [facility] (Rec: 11/30/20 10:33 [facility] [id number]) Balance Tests Single Limb Standing Single Limb- Right slight trunk shear, occ UE use >30 sec Single Limb- Left siginifcant turnk lean and UE use >30 sec PT-OP-G Mobility & Gait Start: 11/30/20 09:52 Freq: Status: Active Protocol: Document 11/30/20 09:52 [facility] (Rec: 11/30/20 10:33 [facility] [id number]) OP Gait Assessment Comments Gait Comments Dec push off B PT-OP-J Posture/Palpation/Skin Start: 11/30/20 09:52 Freq: Status: Active Protocol: Document 04/12/21 09:00 [facility] (Rec: 04/12/21 09:50 [facility] [id number]) Posture Evaluation Maricel Postural Classification System Vertebral Compression Test 4 Elbow Flexion Test 3 Lumbar Protective Mechanism Left AP 4 Lumbar Protective Mechanism Right AP 4 Lumbar Protective Mechanism Left PA 4 Lumbar Protective Mechanism Right PA 4 PT-OP-K Range of Motion Start: 11/30/20 09:52 Freq: Status: Active Protocol: Document 11/30/20 09:52 [facility] (Rec: 11/30/20 10:33 [facility] [id number]) Lumbar Spine Range of Motion Lumbar Spine Active Degrees Flexion 71 Extension 20 Rotation Left 63 Rotation Right 70 Lateral Flexion Left 14 Lateral Flexion Right 20 Comments pain w/L SB & flex, L rot PT-OP-L Special Tests Start: 11/30/20 09:52 Freq: Status: Active Protocol: Document 11/30/20 09:52 [facility] (Rec: 11/30/20 10:33 [facility] [id number]) Special Tests Lumbar Spine Special Tests Arcenio Comments mild tightness B Straight Leg Raise Test Results 63 L w/back pain & HS tightnes , 90deg R HS tightness only Slump Test Results positive L PT-OP-M Strength Start: 11/30/20 09:52 Freq: Status: Active Protocol: Document 04/12/21 09:00 [facility] (Rec: 04/12/21 09:50 [facility] [id number]) Hip Strength Hip Manual Muscle Testing Right Flexion (L2) 5 Normal Extension (S1) 5 Normal Abduction 4+ Good+ Adduction 5 Normal External Rotation 5 Normal Internal Rotation 5 Normal Left Flexion (L2) 4+ Good+ Extension (S1) 4+ Good+ Abduction 5 Normal Adduction 5 Normal External Rotation 5 Normal Internal Rotation 5 Normal Knee Strength Knee Manual Muscle Testing Right Flexion (S2) 5 Normal Extension (L3) 5 Normal Left Flexion (S2) 5 Normal Extension (L3) 5 Normal Ankle/Foot Strength Ankle and Foot Manual Muscle Testing Left Dorsiflexion (L4) 5 Normal Plantarflexion (S1) 5 Normal Right Dorsiflexion (L4) 5 Normal Plantarflexion (S1) 5 Normal Comments 20 heel raises PT-OP-Q Treatments Start: 11/30/20 09:52 Freq: Status: Active Protocol: Document 04/12/21 09:00 [facility] (Rec: 04/12/21 09:50 [facility] [id number]) Therapeutic Exercises Supine Exercises bridge Supine Exercise Name w/alt march Side bilateral Reps/Minutes 5 march Supine Exercise Name alt march Side bilateral Reps/Minutes 15 ea Prone Exercises plank Prone Exercise Name feet & foreamrs Side bilateral Reps/Minutes 30 sec Sidelying Exercises plank Sidelying Exercise Name forearm and feet Side bilateral Reps/Minutes 20 sec Standing Exercises lunge Standing Exercise Name side & fwd Side bilateral Reps/Minutes 10 Comments mirror squat Standing Exercise Name working on no lumbar ext to initiate standing back up Reps/Minutes 10 Self-Care/Home Management Treatment Education Other Education edu on HEP and handout and improtance of cont strength and working on mechanics when at work PT-OP-T Assessment and Plan Start: 11/30/20 09:52 Freq: Status: Active Protocol: Document 04/12/21 09:00 [facility] (Rec: 04/12/21 09:50 [facility] [id number]) Physical Therapy Assessment Goals 5 Prison Goal (LTG) Pt will return to hiking as much as he enjoys without inc pain over 09/01. 01/26-does well flat but not very hilly hikes LTG Duration has not tried much 4 Impairment activities Short Term Goal (STG) Pt will show imrpoved posture w/score of at least 4/5 on VCT and EFT in order to imrpove his postural stability and lfiting stability. 01/26 improved STG Duration achieved Dual Rate Supervisor Goal (LTG) pt will be able to lift heavy loads w/good mechanics and without increased pain. 01/26-improving but nees some cues LTG Duration achieved w/occ cues 3 Impairment work Short Term Goal (STG) Pt will be able to work single shift with pain no greater than 2/10. 01/26-has been workingb ar shift sso long 8 hour shifts w/6/10 pain STG Duration achieved Dual Rate Supervisor Goal (LTG) pt will be able to work double shift as needed without inc pain greater than 2/10 LTG Duration has not done doubles recently 2 Impairment strength Short Term Goal (STG) Pt will be indep w/HEP 01/26-gets in 2x/week except stretches does daily STG Duration 02/26/21 Prison Goal (LTG) pt will score at 5/5 on all BLE MMT and 3/5 on LPM to show imrpoved stability in order to dec pain w/his job. 01/26-signficantly improved LTG Duration LPM achieved, improved LE strength overall 1 Impairment DANICA Short Term Goal (STG) Pt will improve DANICA score to no more than 7/50 to show improved functional ability. 01/26- no change STG Duration improved to Dual Rate Supervisor Goal (LTG) Pt will improve DANICA score to no more than 2/50 to show improved functional ability. LTG Duration Assessment Summary Assessment Pt has made good progress w/ therapy demonstrating improving mechanics, improved LE and core strength and improved tolerance to full work day. He is DC at this time d/t insurance limitations . Good performance of HEP w/ min cueing. Physical Therapy Plan Discharge Physical Therapy Discharge Comments insurance limits
== END 2021-04-12 12:22 | disposition home or self-care (01) ==
LOC: PHYS 09:00
PROVIDERS: PCP Family Medicine; Referring Provider Family Medicine; Visit Provider Family Medicine
DX: M54.9 Dorsalgia, unspecified (principal); R53.1 Weakness; R29.3 Abnormal posture; R26.2 Difficulty in walking, not elsewhere classified
CPT/HCPCS: 97110; 97116; 97140; 97162; 97530

== ENCOUNTER 2022-09-01 20:33 | Emergency (ER) | payer OTHER, MEDICAID, SELFPAY ==
[2022-09-01] VITALS (8 sets, daily range): BP systolic 131; BP diastolic 92; PULSE 62–81; RESP 16–19; TEMP 36.6; O2SAT 97–100; BMI 31.4
--- NOTE | 2022-09-01 20:50 | PC.NURSE ---
felt like he was having trouble taking a deep breath today
--- NOTE | 2022-09-01 21:53 | ED_ITS ---
HPI - URI/Sore Throat General Chief Complaint: Upper Respiratory Symptoms Stated Complaint: SOB Time Seen by Provider: 09/01/22 21:49 Source: patient Mode of arrival: Ambulatory History of Present Illness HPI Narrative: Patient is a healthy 37-year-old male who presents with upper respiratory like symptoms. Presenting today with shortness of breath. Still has nasal congestion and cough no fever chills. Today he was at work he was feeling dizzy and short of breath. He did not pass out. Feels like he can not take a deep breath. He denies any abdominal pain nausea or vomiting fever sore throat or other symptoms. Related Data Home Medications Medication Instructions Recorded Confirmed multivitamin 1 tab PO DAILY 10/02/18 06/09/22 Previous Rx's Medication Instructions Recorded paroxetine HCl 20 mg tablet 20 mg PO BID #180 tabs 05/08/22 amoxicillin 875 mg-potassium 1 tab PO BID #28 tabs 06/09/22 clavulanate 125 mg tablet tramadol 50 mg tablet 50 mg PO BID PRN pain #14 tabs 06/09/22 dextroamphetamine sulfate 10 mg 10 mg PO DAILY #60 caps 08/14/22 capsule,extended release dextroamphetamine-amphetamine 20 20 mg PO BID #120 tabs 08/29/22 mg tablet (Adderall) Allergies Allergy/AdvReac Type Severity Reaction Status Date / Time ciprofloxacin [From CIPRO] Allergy Mild MUSCLE/JOINT Verified 09/01/22 20:44 PAIN &SWELLING Review of Systems Review of Systems ROS Unobtainable: All systems reviewed & are unremarkable except as noted in HPI and below Patient History Medical History Anxiety Chicken pox (~1991) Depression (~1997) Erythema multiforme Foot pain Hyperlipidemia No significant medical problems Strep pharyngitis Swelling of elbow Surgical History Anesthesia Status post appendectomy (~2011) Family History Mother Age: 61 Bipolar affective disorder, current episode mixed, current episode severity unspecified Grandfather Heart disease High cholesterol Cerebrovascular accident (CVA), unspecified mechanism Grandmother No problems noted. Social History Smoking Status: Never smoker alcohol intake: former substance use type: does not use Smoking Status: Never smoker alcohol intake frequency: a few times a week Alcohol type: beer Substance Use Type: marijuana Exam Initial Vital Signs Initial Vital Signs: Vital Signs Temperature 97.9 F 09/01/22 20:44 Pulse Rate 74 09/01/22 20:44 Respiratory Rate 19 09/01/22 20:44 Blood Pressure 131/92 H 09/01/22 20:44 Pulse Oximetry 99 09/01/22 20:44 Oxygen Delivery Method 09/01/22 20:44 GENERAL: Alert pleasant 37-year-old male no acute distress HEENT: Head atraumatic,EOMI, pupils reactive, face symmetric, moist mucous membranes CARDIOVASCULAR: Regular rate and rhythm without murmurs, rubs or gallops. RESPIRATORY: Breath sounds equal bilaterally, no wheezes rales or rhonchi. EXTREMITIES: Normal range of motion, no clubbing or edema. Neurovascularly intact NEUROLOGICAL: Alert and oriented x4. SKIN: Warm, dry, no laceration, no petechiae, no rashes or lesions. Scores PERC Score Age greater than or equal to 50 years: No Heart rate greater than or equal to 100 bpm: No Room Air O2 Sat less than 95%: No Unilateral leg swelling: No Recent trauma or surgery: No Hemoptysis: No Prior PE or DVT: No Hormone Use: No Total PERC Score: 0 Course Orders Ordered: ED Orders 09/01/22 21:54 Chest [XR chest 2V] Stat Discontinued Medications Albuterol (Albuterol Hfa Prepack) 1 box MISC SEEINSTR ONE Stop: 09/01/22 23:20 Last Admin: 09/01/22 23:29 Dose: 1 box Documented By: ALEKS Albuterol/Ipratropium (Albuterol/Ipratropium 3 Ml Ampul) 3 ml INH NOW ONE Stop: 09/01/22 21:55 Last Admin: 09/01/22 22:16 Dose: 3 ml Documented By: ALEKS Vital Signs Vital signs: Vital Signs - 8 hr 09/01/22 20:44 09/01/22 22:16 09/01/22 20:53 Temperature 97.9 F Pulse Rate 74 77 80 Respiratory Rate 19 16 Blood Pressure 131/92 H Pulse Oximetry 99 100 100 Oxygen Delivery Method Room Air Room Air Oxygen Flow Rate 0 Fraction of Inspired Oxygen 09/01/22 21:00 09/01/22 21:30 09/01/22 22:00 Temperature Pulse Rate 76 73 62 Respiratory Rate Blood Pressure Pulse Oximetry 100 98 97 Oxygen Delivery Method Oxygen Flow Rate Fraction of Inspired Oxygen 09/01/22 22:30 09/01/22 23:00 Temperature Pulse Rate 76 81 Respiratory Rate Blood Pressure Pulse Oximetry 98 97 Oxygen Delivery Method Oxygen Flow Rate Fraction of Inspired Oxygen MDM - URI/Sore Throat Imaging Data Chest x-ray: Radiologist's Impression: XRay Report Signed Patient: Abdirizak Ricci MR#: [id number] : 1985 Acct:[id number] Age/Sex: 37 / M Date of Service: 09/01/22 Loc: ED Accession Number: [id number] ?? Procedure: XR chest 2V Ordering Provider: Yareli Brasher D.O. PROCEDURE:? XR CHEST 2V ? INDICATIONS:? sob ? TECHNIQUE:? 2 views of the chest were acquired.? ? COMPARISON:? [facility], , XR CHEST 1V, 10/21/2020, 10:02. ? FINDINGS:? ? Surgical changes and devices:? None.? ? Lungs and pleura:? Lungs are clear.? No pleural effusions or pneumothorax.? ? Mediastinum:? Mediastinal contours are normal.? Heart size is normal.? ? Bones and chest wall:? No suspicious bony abnormalities.? Soft tissues appear unremarkable.? ? IMPRESSION:? ? 1.? No acute cardiopulmonary disease. ? ? ? Dictated by: Anders Dodson M.D. on 09/01/2022 at 22:55 ? ? [facility] Narrative Medical decision making narrative: Patient is a healthy 29-year-old male nonsmoker presents today with difficulty breathing and upper respiratory like symptoms. He is not hypoxic he has no wheezing but feels like he can not take a deep breath. X-ray does not show any pneumonia or abnormality. He is given DuoNeb in the ED which seemed to help him a lot. He was then given albuterol inhaler and spacer. At this time he has upper respiratory like symptoms. He is not had any recent traveling unlikely to be PE. Perc score is 0. Discharge Plan Departure Patient Disposition: Home Clinical Impression: Upper respiratory infection Instructions: DI for Viral Upper Respiratory Infection -- Adult Activity Restrictions/Additional Instructions: *You have been diagnosed with upper respiratory infection *What to do: At this time there is no need for any antibiotics. Use albuterol inhaler only if needed it may help your breathing be easier *Continue to take medications as directed Albuterol 1-2 puffs every 4 hours if needed for shortness of breath or wheezing *Follow up with your primary care provider in 2-3 days or call [phone] *Return to ER if you should have increasing shortness of breath increasing use of albuterol or any new, worsening or concerning symptoms Prescriptions: No Action multivitamin tablet 1 tab PO DAILY paroxetine HCl 20 mg tablet 20 mg PO BID Qty: 180 3RF dextroamphetamine sulfate 10 mg capsule, extended release 10 mg PO DAILY Qty: 60 0RF dextroamphetamine-amphetamine [Adderall] 20 mg tablet 20 mg PO BID Qty: 120 0RF amoxicillin-pot clavulanate 875-125 mg tablet 1 tab PO BID Qty: 28 0RF tramadol 50 mg tablet 50 mg PO BID PRN (Reason: pain) Qty: 14 0RF Referrals: Cyrus Alfredo MD [Primary Care Provider] - Stand Alone Forms: Patient Portal/API
--- NOTE | 2022-09-01 21:54 | DI.RAD.S_ITS ---
PROCEDURE: XR CHEST 2V INDICATIONS: sob TECHNIQUE: 2 views of the chest were acquired. COMPARISON: [facility], CR, XR CHEST 1V, 10/21/2020, 10:02. FINDINGS: Surgical changes and devices: None. Lungs and pleura: Lungs are clear. No pleural effusions or pneumothorax. Mediastinum: Mediastinal contours are normal. Heart size is normal. Bones and chest wall: No suspicious bony abnormalities. Soft tissues appear unremarkable. IMPRESSION: 1. No acute cardiopulmonary disease. Dictated by: Anders Dodson M.D. on 09/01/2022 at 22:55 Approved by: Anders Dodson M.D. on 09/01/2022 at 22:55
[2022-09-01] MEDS: ALBUTEROL/IPRATROPIUM 3 ML AMPUL INH (22:16)
[2022-09-01] MEDS: ALBUTEROL HFA PREPACK 1 BOX MISC (23:29)
== END 2022-09-01 23:40 | disposition home or self-care (01) ==
PROVIDERS: Emergency Provider Emergency Medicine; PCP Family Medicine
DX: J06.9 Acute upper respiratory infection, unspecified (principal)
CPT/HCPCS: 71046; 94640; 99283

== ENCOUNTER → 2022-10-18 12:54 | Outpatient (CLI) | payer OTHER, MEDICAID, SELFPAY ==
[2022-10-18 13:28] LABS: Alanine Aminotransferase 40 IU/L (<50); Albumin 4.2 g/dL (3.5-5.0); Albumin Globulin Ratio 1.7 (1.0-2.8); Alkaline Phosphatase 49 U/L (38-126); Aspartate Aminotransferase 26 IU/L (17-59); BUN Creatinine Ratio 9.1 (6-22); Bilirubin Total 0.7 mg/dL (0.2-1.3); Blood Urea Nitrogen 9 mg/dL (9-20); Calcium 9.5 mg/dL (8.4-10.2); Carbon Dioxide 29 mmol/L (22-32); Chloride 103 mmol/L (98-107); Cholesterol 187 mg/dL (140-199); Estimated Glomerular Filt Rate > 60 mL/min (>60); Globulin 2.5 g/dL (1.7-4.1); Glucose 100 mg/dL (70-100); HDL Cholesterol 40 mg/dL (40-60); HEMOLYSIS < 15 (0-50); LDL Cholesterol Calculated 114 mg/dL (<100); Potassium 4.1 mmol/L (3.4-5.1); Sodium 140 mmol/L (137-145); Total Protein 6.7 g/dL (6.3-8.2); Triglycerides 163 mg/dL (35-150)
[2022-10-18 13:34] LABS: Add Manual Diff / Slide Review NO; Basophils Absolute Auto 0 /uL (0-100); Basophils Percent Auto 0.8 % (0-2); Eosinophils Absolute Auto 100 /uL (0-450); Eosinophils Percent Auto 2.1 % (2-4); Hematocrit 43.1 % (41-53); Hemoglobin 14.8 g/dL (13.5-17.5); Lymphocytes Absolute Auto 1400 /uL (1100-4500); Lymphocytes Percent Auto 23.4 % (25-40); Mean Corpuscular HGB Conc 34.4 % (30-36); Mean Corpuscular Hemoglobin 29.7 PG (26-34); Mean Corpuscular Volume 86.1 fL (80-100); Monocytes Absolute Auto 500 /uL (0-900); Monocytes Percent Auto 7.9 % (3-14); Neutrophils Absolute Auto 3900 /uL (1500-7000); Neutrophils Percent Auto 65.8 % (50-75); Platelet Count 216 X10^3/uL (150-400); Red Blood Cell Count 5.01 X10^6/uL (4.5-5.9); Red Cell Distribution Width 13.7 % (11.6-14.8)
[2022-10-18 15:30] LABS: Creatinine Urine Random 229.4 mg/dL
[2022-10-18 15:35] LABS: Microalbumi Creatinin Ratio Ur 2.6 ug/mg CR (<30); Microalbumin Urine Random 0.6 mg/dL (0-1.6)
[2022-10-19 08:09] LABS: x Labcorp Estim. Avg Glu (eAG) 114 mg/dL (.); x Labcorp Hemoglobin A1c 5.6 % (4.8-5.6)
== END ==
PROVIDERS: PCP Family Medicine; Referring Provider Family Medicine; Visit Provider Family Medicine
DX: E78.5 Hyperlipidemia, unspecified (principal); F33.9 Major depressive disorder, recurrent, unspecified; F41.9 Anxiety disorder, unspecified; F90.0 Attention-deficit hyperactivity disorder, predominantly inattentive type; R73.9 Hyperglycemia, unspecified
CPT/HCPCS: 36415; 80053; 80061; 82043; 82570; 83036; 85025

== ENCOUNTER → 2022-11-01 10:30 | Outpatient (CLI) | payer OTHER, MEDICAID, SELFPAY ==
[2022-11-01 13:49] LABS: TSH w/ Reflex to FT4 1.09 uIU/mL (0.47-4.68)
== END ==
PROVIDERS: PCP Family Medicine; Referring Provider Family Medicine; Visit Provider Family Medicine
DX: Z83.49 Family history of other endocrine, nutritional and metabolic diseases (principal)
CPT/HCPCS: 36415; 84443

== ENCOUNTER → 2022-12-21 09:18 | Outpatient (CLI) | payer OTHER, MEDICAID, SELFPAY | PROVIDERS: Family Provider Family Medicine; PCP Family Medicine; Referring Provider Family Medicine; Visit Provider Family Medicine | DX: R20.0 Anesthesia of skin (principal) | CPT/HCPCS: 95886; 95910 ==

== ENCOUNTER → 2023-04-27 07:23 | Outpatient (CLI) | payer OTHER, MEDICAID, SELFPAY ==
[2023-04-27 08:13] LABS: Influenza A - CEPHEID Flu A NEGATIVE (NEGATIVE); Influenza B - CEPHEID Flu B NEGATIVE (NEGATIVE); Respiratory Syncytial Virus Negative (Negative)
[2023-04-27 08:14] LABS: COVID-19 CEPHEID 4-PLEX PCR Negative (Negative)
== END ==
PROVIDERS: Family Provider Family Medicine; PCP Family Medicine; Visit Provider Physician Assistant
DX: J02.9 Acute pharyngitis, unspecified (principal); R09.81 Nasal congestion
CPT/HCPCS: 0241U; 87070; 87880; C9803

== ENCOUNTER → 2023-05-17 08:37 | Outpatient (CLI) | payer OTHER, MEDICAID, SELFPAY ==
--- NOTE | 2023-05-17 08:38 | DI.RAD.S_ITS ---
PROCEDURE: XR HIP W PEL IF DONE RT 2V INDICATIONS: chronic right hip and low back pain TECHNIQUE: AP pelvis with lateral view(s) of the right hip(s). COMPARISON: None. FINDINGS: Bones: No fractures or dislocations. Pelvic ring appears intact. No suspicious bony lesions. Joint spaces are maintained. Soft tissues: The visualized bowel gas pattern is normal. No suspicious soft tissue calcifications. IMPRESSION: No acute osseous abnormality. Joint spaces are maintained. If there is high clinical suspicion for a radiographically occult fracture, consider cross-sectional imaging for further evaluation. Dictated by: Ambreen Ruiz M.D. on 05/17/2023 at 11:36 Approved by: Ambreen Ruiz M.D. on 05/17/2023 at 11:38
--- NOTE | 2023-05-17 08:38 | DI.RAD.S_ITS ---
PROCEDURE: XR LUMBAR SPINE 2-3V INDICATIONS: chronic right hip and low back pain TECHNIQUE: 3 views of the lumbar spine were acquired. COMPARISON: [facility], CR, XR LUMBAR SPINE 2-3V, 07/25/2019, 10:28. FINDINGS: Bones: 5 [id number] vertebrae are present. No acute fracture or traumatic subluxation. Slight levoconvex curvature of the lumbar spine, likely positional. Vertebral body height is maintained. Mild disc height loss at L3-L4 and L5-S1. Mild facet arthropathy at L5-S1. No suspicious osseous lesion. Soft tissues: Overlying bowel gas pattern is normal. No suspicious soft tissue calcifications. IMPRESSION: 1. No acute fracture or traumatic subluxation of the lumbar spine. 2. Mild disc height loss at L3-L4 and L5-S1 with mild facet arthropathy at L5-S1. If symptoms persist, consider cross-sectional imaging for further evaluation. Dictated by: Ambreen Ruiz M.D. on 05/17/2023 at 11:38 Approved by: Ambreen Ruiz M.D. on 05/17/2023 at 11:41
== END ==
PROVIDERS: Family Provider Family Medicine; PCP Family Medicine; Referring Provider Family Medicine; Visit Provider Family Medicine
DX: M25.551 Pain in right hip (principal); M53.3 Sacrococcygeal disorders, not elsewhere classified; G89.29 Other chronic pain; M47.817 Spondylosis without myelopathy or radiculopathy, lumbosacral region
CPT/HCPCS: 72100; 73502

== ENCOUNTER → 2023-05-30 07:34 | Outpatient (CLI) | payer OTHER, MEDICAID, SELFPAY ==
--- NOTE | 2023-05-30 07:36 | DI.MRI.S_ITS ---
PROCEDURE: MR LUMBAR SPINE WO CON INDICATIONS: per Xray recommendation TECHNIQUE: Noncontrast sagittal T1 spin echo and T2 fast echo, sagittal STIR, and T2 fast spin echo through the lumbar spine. In cases with scoliosis, additional coronal T2 fast spin echo may be performed. COMPARISON: None. FINDINGS: Image quality: Excellent. Alignment and Curvature: There is normal bony alignment. Bone Marrow: Marrow is of normal overall signal. No acute vertebral body compression fractures. Spinal Cord: Conus medullaris terminates at the L1 level. Visualized cord demonstrates normal signal and size. Paraspinous Soft Tissues: No paravertebral masses. T12-L1: Normal appearance. L1-L2: Normal appearance. L2-L3: Minimal disc bulge. Early facet hypertrophy. No canal stenosis or foraminal stenosis. L3-L4: Minimal disc bulge. Facet hypertrophy. Borderline canal stenosis. Mild bilateral foraminal stenosis. L4-L5: Disc bulge. Facet hypertrophy. No canal stenosis. Mild right foraminal narrowing and mild to moderate left foraminal narrowing. L5-S1: Disc bulge. Facet hypertrophy. Moderate right foraminal narrowing with flattening deformity on the exiting right L5 nerve root. Moderate to severe left foraminal narrowing with a mild degree of left foraminal L5 nerve root impingement. IMPRESSION: 1. Multilevel underlying facet arthropathy. 2. Borderline canal stenosis at L3-L4. 3. Multilevel foraminal narrowing as described above. Findings include moderate right foraminal narrowing and moderate to severe left foraminal narrowing at L5-S1. Dictated by: Eleazar Montalvo M.D. on 05/30/2023 at 8:49 Approved by: Eleazar Montalvo M.D. on 05/30/2023 at 8:52
== END ==
PROVIDERS: Family Provider Family Medicine; PCP Family Medicine; Referring Provider Family Medicine; Visit Provider Family Medicine
DX: M47.816 Spondylosis without myelopathy or radiculopathy, lumbar region (principal); M47.817 Spondylosis without myelopathy or radiculopathy, lumbosacral region; M25.551 Pain in right hip; M48.061 Spinal stenosis, lumbar region without neurogenic claudication; M48.07 Spinal stenosis, lumbosacral region
CPT/HCPCS: 72148

== ENCOUNTER → 2023-06-18 09:58 | Outpatient (CLI) | payer OTHER, MEDICAID, SELFPAY ==
--- NOTE | 2023-06-18 10:00 | DI.RAD.S_ITS ---
PROCEDURE: XR HIP W PEL IF DONE ANANYA MIN 4V INDICATIONS: Right hip pain TECHNIQUE: AP pelvis with lateral view(s) of the bilateral hip(s). COMPARISON: [facility], , XR HIP W PEL IF DONE RT 2V, 05/17/2023, 8:47. FINDINGS: Bones: No fractures or dislocations. Pelvic ring appears intact. No suspicious bony lesions. Soft tissues: The visualized bowel gas pattern is normal. No suspicious soft tissue calcifications. IMPRESSION: No acute bony abnormality. No significant degenerative change. Dictated by: Clement Del Toro M.D. on 06/18/2023 at 13:15 Approved by: Clement Del Toro M.D. on 06/18/2023 at 13:16
== END ==
PROVIDERS: Family Provider Family Medicine; PCP Family Medicine; Referring Provider Anesthesiology; Visit Provider Anesthesiology
DX: M47.26 Other spondylosis with radiculopathy, lumbar region (principal); M48.061 Spinal stenosis, lumbar region without neurogenic claudication; M25.551 Pain in right hip; M54.9 Dorsalgia, unspecified
CPT/HCPCS: 73522; 99214

== ENCOUNTER 2023-07-25 10:29 | Outpatient (CLI) | payer OTHER, MEDICAID, SELFPAY ==
[2023-07-25] VITALS (7 sets, daily range): BP systolic 111–124; BP diastolic 53–59; PULSE 53–84; RESP 10–16; TEMP 36.6; O2SAT 97–100
--- NOTE | 2023-07-25 11:00 | DI.RAD.S_ITS ---
PROCEDURE: PAIN L/S TRANSFORAMINAL INJECT INDICATIONS: radiculopathy COMPARISON: [facility], MR, MR LUMBAR SPINE WO CON, 05/30/2023, 7:52. [facility], CR, XR LUMBAR SPINE 2-3V, 05/17/2023, 8:47. FINDINGS: Fluoroscopic spot filming was performed to verify placement of spinal needles at the left L4-L5 and L5-S1 level(s), as labeled on the films. Appropriate location(s) of the needle tip(s) was confirmed by injection of iodinated contrast. IMPRESSION: Fluoroscopy for pain management. Dictated by: Lakeshia Sauceda M.D. on 07/25/2023 at 13:51 Approved by: Lakeshia Sauceda M.D. on 07/25/2023 at 13:52
[2023-07-25] MEDS: MIDAZOLAM 2 MG/2 ML VIAL IV (11:10)
[2023-07-25] MEDS: DEXAMETHASONE 10 MG/ML VIAL 20 MG INJ (11:14)
[2023-07-25] MEDS: iopamidoL 15 ML VIAL 3 ML INJ (11:14)
--- NOTE | 2023-07-25 11:30 | P.PCN_ITS ---
Date/Time/Diagnoses Date of procedure: 07/25/23 Time of procedure: 11:00 Procedure Notes Physician: Marvel Ascencio Total Fluoroscopy time (seconds): 24 Total sedation minutes: 14 Procedure in detail & Post-procedure care: Left L4-5 and L5-S1 Transforaminal Epidural Steroid Injection Indications: Abdirizak is presenting for treatment of lumbar radiculopathy with low back and leg pain. Preoperative diagnosis: Lumbar radiculopathy Postoperative diagnosis: Same Focused Examination: Ax3 Mood and affect are normal Vital Signs: VSS ASA: 2 Consent: Following review of allergies and potential side effects/complications, including, but not necessarily limited to, infection, allergic reaction, local tissue breakdown, stroke, temporary or permanent nerve injury, paralysis, and possible , the patient indicated that they understood and agreed to proceed.? An informed consent document was signed by the patient, witnessed by a nurse and placed in the patient's chart.? Additionally, other treatment options including medications and physical therapy were reviewed with the patient. All questions were answered. Site was then marked. Anesthesia: After review of previous anesthetic history and IV conscious se dation, the patient was deemed safe to proceed with today's procedure with IV conscious sedation. IV sedation was accomplished with midazolam 2 mg administered by the RN after order by Dr. Ascencio. Sedation was titrated to patient comfort during the course of the procedure. Patient remained responsive to all verbal commands. Position: Prone Monitoring: NIBP, Pulse oximetry, 3 lead EKG Needle used: 22G 5 inch spinal needle Contrast: Isovue 300M Injectate: 10 mg Dexamethasone mixed with 1% lidocaine 1 ml and normal saline 1 mL Technique: The skin was prepped with chloraprep and draped in a sterile fashion. Time out was performed as per protocol. Oxygen applied via NC. Skin and subcutaneous structures of the needle entry site were infiltrated with 3mL of lidocaine 1%. Under fluoroscopic guidance, using an ipsilateral oblique view,?a 22 gauge 5 inch needle was advanced to the base of the left L4?pedicle.? The needle was advanced to the superio-posterior aspect of the neural foramen under lateral view.? Oblique and AP views were rechecked. No paresthesias noted by the patient during needle placement. In AP view and utilizing real-time digital subtraction fluoroscopy, 2 ml contrast was slowly injected. Epidural spread was observed without evidence for intravascular nor intrathecal uptake. Contrast spread was seen craniocaudally. The above injectate was then administered without paresthesias and the needle was subsequently withdrawn. Under fluoroscopic guidance, using an ipsilateral oblique view,?a 22 gauge 5 inch needle was advanced to the base of the left L5?pedicle.? The needle was advanced to the superio-posterior aspect of the neural foramen under lateral view.? Oblique and AP views were rechecked. No paresthesias noted by the patient during needle placement. In AP view and utilizing real-time digital subtraction fluoroscopy, 2 ml contrast was slowly injected. Epidural spread was observed without evidence for intravascular nor intrathecal uptake. Contrast spread was seen craniocaudally. The above injectate was then administered without paresthesias and the needle was subsequently withdrawn. Band-Aids applied to injection sites. EBL: less than 1 ml Complications: None Post Procedure: Patient was taken to the recovery and monitored. The patient was provided a Pain Log to continue to record the patient's response to the target- specific procedure prior to the patient's follow-up visit with the referring physician. Patient was stable upon discharge. Detailed post procedure instructions were provided. Patient was asked to call in the event of worsening pain, fever, weakness, numbness or bladder or bowel incontinence.
--- NOTE | 2023-07-26 13:25 | PC.NURSE ---
post injection call- Spoke with patient and reports that this is the least amount of pain he has been in for the last 5 years, currently into a 5 mile run. Denies any numbness or tingling. Transferred to clinic for schedule f/u apt.
== END 2023-07-25 11:48 | disposition home or self-care (01) ==
PROVIDERS: Family Provider Family Medicine; PCP Family Medicine; Referring Provider Anesthesiology; Visit Provider Anesthesiology
DX: M54.16 Radiculopathy, lumbar region (principal)
CPT/HCPCS: 64483; 99152; J1100; J2250

== ENCOUNTER 2023-08-21 07:30 | Outpatient (RCR) | payer OTHER, MEDICAID, SELFPAY ==
--- NOTE | 2023-08-15 18:11 | PT.OIE ---
Current Diagnoses Spondylosis without myelopathy or radiculopathy, lumbar region (08/15/23) Spinal stenosis, lumbar region without neurogenic claudication (08/15/23) Radiculopathy, lumbar region (08/15/23) Dorsalgia, unspecified (08/15/23) Abnormal posture (08/15/23) Past Medical History (Last Reviewed 07/09/23 @ 08:32 by Marvel Ascencio MD) Anxiety Carpal tunnel syndrome on both sides Chicken pox (~1991) Depression (~1997) Dorsalgia Erythema multiforme Foot pain Hip pain Hyperlipidemia Lumbar foraminal stenosis Lumbar radiculopathy Lumbar spondylosis No significant medical problems Strep pharyngitis Swelling of elbow Past Surgical History (Last Reviewed 07/09/23 @ 08:32 by Marvel Ascencio MD) Anesthesia Status post appendectomy (~2011) Visit Care Team Role Provider Type Cyrus Alfredo MD Family Provider Physician Primary Care Provider Specialty: Family Practice Address: [address] [place] [address] Email: [email or web address] Marvel Ascencio MD Attending Provider Physician Referring Provider Specialty: Anesthesiology Interventional Radiology Pain Management Address: [address] [place] [address], [id number] Email: [email or web address] Physical Therapy Initial Evaluation PT-OP-A Visit Information Start: 08/08/23 10:44 Freq: Status: Active Protocol: Document 08/15/23 13:04 [facility] (Rec: 08/15/23 13:51 [facility] [id number]) Out-Patient Physical Therapy Visit Information Visit Information Visit Type Initial Evaluation Visit Start Time 13:04 Visit Stop Time 13:49 Visit Number 08/03 Number of TYPE INSPECTOR Visits 0 PT-OP-B Current Condition Start: 08/08/23 10:44 Freq: Status: Active Protocol: Document 08/15/23 13:04 [facility] (Rec: 08/15/23 13:51 [facility] [id number]) Current Condition History of Current Condition Onset Date chronic Current Complaints L LBP w/pain radiating into groin History of Current Condition Pt reports his back hasn't gotten any better. He has been strengthening and lost over 70lbs and his back is still giving him a lot of trouble. Gets a pinch in L LB that shoots around ant hip an down leg. Recnet injection has helped and makes it easier to put shoes and socks on. 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 Pt's back pain has been chronic for years. He does a lot of stretching and foam rolling which helps him get by w/back pain. Pt greadually inc walking up to 8 miles a day. Wt lifting now: chest day, back day, leg day, arms and shoulders day then rest then repeat. Pt reports he is uncomfortable sometimes but is careful not to make himself worse. Pt reports leg machines that get about 90 deg flex, feels a pinch (leg press). He has uneven strength on R and L side. Pt tries to do dumbells vs wt machine like rows d/t weakness difference. occ gets tingling in toes and hands. he had bad n pain when first started losing weight that was really bad. He was signed up for a nerve study but it took a long time. it got so bad in September taht he had to call out of work some. Got n study and showed no signs of neurological disorder (did both leg) and changed diet ( took out caffiene, inc green veggies, avoided added sugar) and the pain had dec a lot. Pt reports L knee is a little tender. It has been janky for a while. WHen he was 23, he was wrestling with a chevy bigger than him when drinking and injured it; pt gets pinch in thoraic spine. more lower scap region. Has been like that since a couple yeras ago when CPR had been done on him Prior Treatments and Tests MRI lumbar: IMPRESSION: 1. Multilevel underlying facet arthropathy. 2. Borderline canal stenosis at L3-L4. 3. Multilevel foraminal narrowing as described above. Findings include moderate right foraminal narrowing and moderate to severe left foraminal narrowing at L5-S1. Treatment Goals Patient/Caregiver Goals strengthen the area as much as possible and get more exercises to be more focused to maintain mobility PT-OP-C Subjective Start: 08/08/23 10:44 Freq: Status: Active Protocol: Document 08/15/23 13:04 [facility] (Rec: 08/15/23 13:51 [facility] [id number]) Patient Questionnaires Lower Extremity Functional Scale LEFS Score 67/80 Oswestry Low Back Index Oswestry Score 10/50; 20% OP-PT Pain Assessment Location LB Pain Location Details L LB into groin and med thigh Scale Used best: 2/10; worst:4/10 Description Aching,Sharp Description- Other since injection Frequency Constant Radiating Location usd to go down toes Pain Aggravating Factors Changing Position Other Pain Aggravating Factors if doesn't focus fully w/ lifting, Other Pain Alleviating Factors stretching and rolling out PT-OP-D Balance Start: 08/08/23 10:44 Freq: Status: Active Protocol: Document 08/15/23 13:04 [facility] (Rec: 08/15/23 13:51 [facility] [id number]) Balance Tests Single Limb Standing Single Limb- Right >30 sec (stiff in L hip holding it up) Single Limb- Left >30sec PT-OP-G Mobility & Gait Start: 08/08/23 10:44 Freq: Status: Active Protocol: Document 08/15/23 13:04 [facility] (Rec: 08/15/23 13:51 [facility] [id number]) OP Gait Assessment Comments Gait Comments dec L ant dep; dec RUE arm swing PT-OP-J Posture/Palpation/Skin Start: 08/08/23 10:44 Freq: Status: Active Protocol: Document 08/15/23 13:04 [facility] (Rec: 08/15/23 13:51 [facility] [id number]) Posture Evaluation [facility] Postural Classification System [facility] Postural Classifications Posterior/Posterior Vertebral Compression Test 2 Elbow Flexion Test 3 Lumbar Protective Mechanism Left AP 0 Lumbar Protective Mechanism Right AP 0 Lumbar Protective Mechanism Left PA 1 Lumbar Protective Mechanism Right PA 1 Comments Posture Comments L trunk rot, toe out R LE, R pelvic shear; L scap ant tipped; L iliac crest higher; equal greater trochanter PT-OP-K Range of Motion Start: 08/08/23 10:44 Freq: Status: Active Protocol: Document 08/15/23 13:04 [facility] (Rec: 08/15/23 13:51 [facility] [id number]) Lumbar Spine Range of Motion Lumbar Spine Active Percentage Flexion 90 Extension 40 Rotation Left 75 Rotation Right 75 Lateral Flexion Left 80 Lateral Flexion Right 90 Comments dec lower lumbar motion w/L SB ; pain w/ext; discomfort L PT-OP-L Special Tests Start: 08/08/23 10:44 Freq: Status: Active Protocol: Document 08/15/23 13:04 [facility] (Rec: 08/15/23 13:51 [facility] [id number]) Special Tests Lumbar Spine Special Tests Arcenio Test Results neg but pain in ant hip w/knee to chest Slump Test Results neg B PT-OP-M Strength Start: 08/08/23 10:44 Freq: Status: Active Protocol: Document 08/15/23 13:04 [facility] (Rec: 08/15/23 13:51 [facility] [id number]) Hip Strength Hip Manual Muscle Testing Right Flexion (L2) 4+ Good+ Extension (S1) 4- Good- Abduction 4- Good- Adduction 4 Good External Rotation 4 Good Internal Rotation 4+ Good+ Left Flexion (L2) 3+ Fair+ Extension (S1) 4- Good- Abduction 3+ Fair+ Adduction 3+ Fair+ External Rotation 3+ Fair+ Internal Rotation 3+ Fair+ Comments dec core control w/all Hip MMT Knee Strength Knee Manual Muscle Testing Right Flexion (S2) 5 Normal Extension (L3) 5 Normal Left Flexion (S2) 5 Normal Extension (L3) 4 Good Comments pain in knee ext; tightness w/ flex ant Ankle/Foot Strength Ankle and Foot Manual Muscle Testing Right Dorsiflexion (L4) 5 Normal Left Dorsiflexion (L4) 5 Normal PT-OP-Q Treatments Start: 08/08/23 10:44 Freq: Status: Active Protocol: Document 08/15/23 13:04 [facility] (Rec: 08/15/23 17:47 [facility] [id number]) Self-Care/Home Management Treatment Education Other Education 8 min: edu to pt re: how now that he has dec inflamation in his system and has inc mm strength since last PT, he may see more progress. Also, discussed w/ pt his postural position and how this may be affecting his pain along w/his elevation of L pelvis that is notable during gait having lack of motion. PT-OP-T Assessment and Plan Start: 08/08/23 10:44 Freq: Status: Active Protocol: Document 08/15/23 13:04 [facility] (Rec: 08/15/23 13:51 [facility] [id number]) Physical Therapy Assessment Rehab Potential Rehabilitation Potential Good Evaluation Complexity Number of Personal Factors/Comorbidities 3 or More Number of Body Systems Impaired 4 or More Clinical Presentation at Evaluation Evolving Impairments Impairments Activity Tolerance,Balance, Functional Activities, Functional Mobility,Gait,Pain, Posture,ROM,Soft Tissue Mobility,Strength Other Concerns Barriers to Rehabilitation only 12 visits allowed of PT a year Goals posture Senior Living Goal (LTG) Pt will improve VCT to at least 4/5 to show improved postural stability. LTG Duration 11/07/23 ROM Short Term Goal (STG) Pt will have at least 80% of normal ROM of lumbar spine w/o inc pain greater than 2/10 to allow for greater daily movement. STG Duration 09/30/23 Senior Living Goal (LTG) Pt will be able to bring knees to chest w/o inc pain in hip or back greater than 1/10 LTG Duration 11/07/23 strength Short Term Goal (STG) Pt will be indep w/HEP STG Duration 09/22/23 Guest Relations Manager Goal (LTG) Pt will score at least 3/5 on LPM and 4/5 on EFT and at least 4+/5 on all LE MMT w/o inc pain greater than 1/10 in order to allow pt to do typical daily functions w/o pain. LTG Duration 11/07/23 Assessment Summary Assessment Pt presents w/chronic LBP with radicular pain that wraps around pelvis into groin and goes into med leg at this time . He does reprot foot tingling /numbness also, but did have EMG that was neg for neurological findings. He did have injection, which has allowed him to improve his movement and has lost a lot of weight int he past year along w/focused on working out and diet changes, which he does feel like is helping. He does still have limits in hip L>R and back ROM and dec L>R LE strength and core strength along w/dec postural stability and positioning leading to gait deviations. 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 Pt would benefit from skilled PT in order dec pain in order to improve function during daily activities. Physical Therapy Plan Frequency and Duration Frequency of Treatment 1x/Week Duration of treatment (weeks) 12 Plan of Care Start Date 08/15/23 Plan of Care End Date 11/07/23 Therapeutic Interventions Therapeutic Interventions Balance Training,Gait Training ,Home Exercise Program,Joint Mobilizations,Manual Therapy, Neuromuscular Re-education, Orthotic/Prosthetic Management ,Patient/Caregiver Education, Self-Care/Home Management,Soft Tissue Mobilization,Taping, Therapeutic Activities, Therapeutic Exercises Modalities Cold Pack/Ice Massage,Electric Stimulation,Hot Packs, Traction- Mechanical, Ultrasound Next Visit Focus/Plan Next Note Type Treatment Note Next Visit Plan manual: innominate and hip mobs, STM to hip flexors HEP: go over squat form, supine core exercises, standing resisted hip flex w/ light band if tolerated, planks and plank w/clamshell if able; try to incorporate LE and trunk strength together
--- NOTE | 2023-08-15 18:12 | PT.OPPOC ---
Physical, Occupational & Speech Therapy At [facility] Current Diagnoses Spondylosis without myelopathy or radiculopathy, lumbar region (08/15/23) Spinal stenosis, lumbar region without neurogenic claudication (08/15/23) Radiculopathy, lumbar region (08/15/23) Dorsalgia, unspecified (08/15/23) Abnormal posture (08/15/23) Visit Care Team Role Provider Type Cyrus Alfredo MD Family Provider Physician Primary Care Provider Specialty: Family Practice Address: [address] [place] [address] Email: [email or web address] Marvel Ascencio MD Attending Provider Physician Referring Provider Specialty: Anesthesiology Interventional Radiology Pain Management Address: [address] [place] [address], [id number] Email: [email or web address] Of [email or web address] PT-OP-T Assessment and Plan Start: 08/08/23 10:44 Freq: Status: Active Protocol: Document 08/15/23 13:04 [facility] (Rec: 08/15/23 13:51 [facility] [id number]) Physical Therapy Assessment Rehab Potential Rehabilitation Potential Good Evaluation Complexity Number of Personal Factors/Comorbidities 3 or More Number of Body Systems Impaired 4 or More Clinical Presentation at Evaluation Evolving Impairments Impairments Activity Tolerance,Balance, Functional Activities, Functional Mobility,Gait,Pain, Posture,ROM,Soft Tissue Mobility,Strength Other Concerns Barriers to Rehabilitation only 12 visits allowed of PT a year Goals posture Nursing Home Goal (LTG) Pt will improve VCT to at least 4/5 to show improved postural stability. LTG Duration 11/07/23 ROM Short Term Goal (STG) Pt will have at least 80% of normal ROM of lumbar spine w/o inc pain greater than 2/10 to allow for greater daily movement. STG Duration 09/30/23 Senior Manufacturing Technician Goal (LTG) Pt will be able to bring knees to chest w/o inc pain in hip or back greater than 1/10 LTG Duration 11/07/23 strength Short Term Goal (STG) Pt will be indep w/HEP STG Duration 09/22/23 Nursing Home Goal (LTG) Pt will score at least 3/5 on LPM and 4/5 on EFT and at least 4+/5 on all LE MMT w/o inc pain greater than 1/10 in order to allow pt to do typical daily functions w/o pain. LTG Duration 11/07/23 Assessment Summary Assessment Pt presents w/chronic LBP with radicular pain that wraps around pelvis into groin and goes into med leg at this time . He does reprot foot tingling /numbness also, but did have EMG that was neg for neurological findings. He did have injection, which has allowed him to improve his movement and has lost a lot of weight int he past year along w/focused on working out and diet changes, which he does feel like is helping. He does still have limits in hip L>R and back ROM and dec L>R LE strength and core strength along w/dec postural stability and positioning leading to gait deviations. 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 Pt would benefit from skilled PT in order dec pain in order to improve function during daily activities. Physical Therapy Plan Frequency and Duration Frequency of Treatment 1x/Week Duration of treatment (weeks) 12 Plan of Care Start Date 08/15/23 Plan of Care End Date 11/07/23 Therapeutic Interventions Therapeutic Interventions Balance Training,Gait Training ,Home Exercise Program,Joint Mobilizations,Manual Therapy, Neuromuscular Re-education, Orthotic/Prosthetic Management ,Patient/Caregiver Education, Self-Care/Home Management,Soft Tissue Mobilization,Taping, Therapeutic Activities, Therapeutic Exercises Modalities Cold Pack/Ice Massage,Electric Stimulation,Hot Packs, Traction- Mechanical, Ultrasound Next Visit Focus/Plan Next Note Type Treatment Note Next Visit Plan manual: innominate and hip mobs, STM to hip flexors HEP: go over squat form, supine core exercises, standing resisted hip flex w/ light band if tolerated, planks and plank w/clamshell if able; try to incorporate LE and trunk strength together Plan of Care Dates Plan of Care Start Date 08/15/23 Plan of Care End Date 11/07/23 Electronically Signed by: Azul Spears, PT 08/15/23 [id number] If you are in agreement with this Plan of Care, please return a signed and dated copy. I have reviewed this Plan of Care and certify that the skilled therapy services above are required to meet the patient?s needs. Physician Signature Date Printed Name and Credentials Clinical Instructor Signature Printed Name and Credentials
--- NOTE | 2023-08-21 10:35 | PT.OTN ---
Current Diagnoses Spondylosis without myelopathy or radiculopathy, lumbar region (08/21/23) Spinal stenosis, lumbar region without neurogenic claudication (08/21/23) Radiculopathy, lumbar region (08/21/23) Dorsalgia, unspecified (08/21/23) Abnormal posture (08/21/23) Physical Therapy Treatment Note PT-OP-A Visit Information Start: 08/08/23 10:44 Freq: Status: Active Protocol: Document 08/21/23 07:57 [facility] (Rec: 08/21/23 10:35 [facility] [id number]) Out-Patient Physical Therapy Visit Information Visit Information Visit Type Treatment Note Visit Start Time 07:33 Visit Stop Time 08:15 Visit Number 09/03 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 He has been strengthening and lost over 70lbs and his back is still giving him a lot of trouble. Gets a pinch in L LB that shoots around ant hip an down leg. Recnet injection has helped and makes it easier to put shoes and socks on. 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 Pt's back pain has been chronic for years. He does a lot of stretching and foam rolling which helps him get by w/back pain. Pt greadually inc walking up to 8 miles a day. Wt lifting now: chest day, back day, leg day, arms and shoulders day then rest then repeat. Pt reports he is uncomfortable sometimes but is careful not to make himself worse. Pt reports leg machines that get about 90 deg flex, feels a pinch (leg press). He has uneven strength on R and L side. Pt tries to do dumbells vs wt machine like rows d/t weakness difference. occ gets tingling in toes and hands. he had bad n pain when first started losing weight that was really bad. He was signed up for a nerve study but it took a long time. it got so bad in September taht he had to call out of work some. Got n study and showed no signs of neurological disorder (did both leg) and changed diet ( took out caffiene, inc green veggies, avoided added sugar) and the pain had dec a lot. Pt reports L knee is a little tender. It has been janky for a while. WHen he was 23, he was wrestling with a chevy bigger than him when drinking and injured it; pt gets pinch in thoraic spine. more lower scap region. Has been like that since a couple yeras ago when CPR had been done on him Prior Treatments and Tests MRI lumbar: IMPRESSION: 1. Multilevel underlying facet arthropathy. 2. Borderline canal stenosis at L3-L4. 3. Multilevel foraminal narrowing as described above. Findings include moderate right foraminal narrowing and moderate to severe left foraminal narrowing at L5-S1. Treatment Goals Patient/Caregiver Goals strengthen the area as much as possible and get more exercises to be more focused to maintain mobility PT-OP-C Subjective Start: 08/08/23 10:44 Freq: Status: Active Protocol: Document 08/21/23 07:57 [facility] (Rec: 08/21/23 10:35 [facility] [id number]) OP-PT Subjective Patient Comments Patient Comments pt reports being tight this AM PT-OP-D Balance Start: 08/08/23 10:44 Freq: Status: Active Protocol: Document 08/15/23 13:04 [facility] (Rec: 08/15/23 13:51 [facility] [id number]) Balance Tests Single Limb Standing Single Limb- Right >30 sec (stiff in L hip holding it up) Single Limb- Left >30sec PT-OP-G Mobility & Gait Start: 08/08/23 10:44 Freq: Status: Active Protocol: Document 08/15/23 13:04 [facility] (Rec: 08/15/23 13:51 [facility] [id number]) OP Gait Assessment Comments Gait Comments dec L ant dep; dec RUE arm swing PT-OP-J Posture/Palpation/Skin Start: 08/08/23 10:44 Freq: Status: Active Protocol: Document 08/15/23 13:04 [facility] (Rec: 08/15/23 13:51 [facility] [id number]) Posture Evaluation Maricel Postural Classification System Maricel Postural Classifications Posterior/Posterior Vertebral Compression Test 2 Elbow Flexion Test 3 Lumbar Protective Mechanism Left AP 0 Lumbar Protective Mechanism Right AP 0 Lumbar Protective Mechanism Left PA 1 Lumbar Protective Mechanism Right PA 1 Comments Posture Comments L trunk rot, toe out R LE, R pelvic shear; L scap ant tipped; L iliac crest higher; equal greater trochanter PT-OP-K Range of Motion Start: 08/08/23 10:44 Freq: Status: Active Protocol: Document 08/15/23 13:04 [facility] (Rec: 08/15/23 13:51 [facility] [id number]) Lumbar Spine Range of Motion Lumbar Spine Active Percentage Flexion 90 Extension 40 Rotation Left 75 Rotation Right 75 Lateral Flexion Left 80 Lateral Flexion Right 90 Comments dec lower lumbar motion w/L SB ; pain w/ext; discomfort L PT-OP-L Special Tests Start: 08/08/23 10:44 Freq: Status: Active Protocol: Document 08/15/23 13:04 [facility] (Rec: 08/15/23 13:51 [facility] [id number]) Special Tests Lumbar Spine Special Tests Arcenio Test Results neg but pain in ant hip w/knee to chest Slump Test Results neg B PT-OP-M Strength Start: 08/08/23 10:44 Freq: Status: Active Protocol: Document 08/15/23 13:04 [facility] (Rec: 08/15/23 13:51 [facility] [id number]) Hip Strength Hip Manual Muscle Testing Right Flexion (L2) 4+ Good+ Extension (S1) 4- Good- Abduction 4- Good- Adduction 4 Good External Rotation 4 Good Internal Rotation 4+ Good+ Left Flexion (L2) 3+ Fair+ Extension (S1) 4- Good- Abduction 3+ Fair+ Adduction 3+ Fair+ External Rotation 3+ Fair+ Internal Rotation 3+ Fair+ Comments dec core control w/all Hip MMT Knee Strength Knee Manual Muscle Testing Right Flexion (S2) 5 Normal Extension (L3) 5 Normal Left Flexion (S2) 5 Normal Extension (L3) 4 Good Comments pain in knee ext; tightness w/ flex ant Ankle/Foot Strength Ankle and Foot Manual Muscle Testing Right Dorsiflexion (L4) 5 Normal Left Dorsiflexion (L4) 5 Normal PT-OP-Q Treatments Start: 08/08/23 10:44 Freq: Status: Active Protocol: Document 08/21/23 07:57 [facility] (Rec: 08/21/23 10:35 [facility] [id number]) Therapeutic Exercises Supine Exercises bridge Supine Exercise Name w/alt knee ext Side bilateral Reps/Minutes 10 ea abdominal series Supine Exercise Name 1. flex 2. diagonal 3. ext 4. flex Side bilateral Reps/Minutes 30 sec ea Prone Exercises IR/ER Side bilateral Reps/Minutes 10 Comments hands under hips to monitor hips Other Exercises pigeon Side bilateral Manual Therapy Treatment Soft Tissue Mobilization hip flexor Body Location L Mobilization Type Sustained Pressure Intensity/Depth Moderate Body Position Hooklying Joint Mobilizations innomininate Joint L caudal FM; B ER and IR FM hip Comments 1. prone hip on axis ER R 2. prone hip on axis IR B FM 3. inf glide B FM 4. IR free the ball FM L Neuro Re-Education Treatment Other Activities facilitation Reps/Duration 8 min Comments manual facilitaiton at end range ER, IR and flex w/ sustained holds progressed to COI after mobs PT-OP-T Assessment and Plan Start: 08/08/23 10:44 Freq: Status: Active Protocol: Document 08/21/23 07:57 [facility] (Rec: 08/21/23 10:35 [facility] [id number]) Physical Therapy Assessment Goals posture Usp Goal (LTG) Pt will improve VCT to at least 4/5 to show improved postural stability. LTG Duration 11/07/23 ROM Short Term Goal (STG) Pt will have at least 80% of normal ROM of lumbar spine w/o inc pain greater than 2/10 to allow for greater daily movement. STG Duration 09/30/23 Usp Goal (LTG) Pt will be able to bring knees to chest w/o inc pain in hip or back greater than 1/10 LTG Duration 11/07/23 strength Short Term Goal (STG) Pt will be indep w/HEP STG Duration 09/22/23 Retail Business Analyst Goal (LTG) Pt will score at least 3/5 on LPM and 4/5 on EFT and at least 4+/5 on all LE MMT w/o inc pain greater than 1/10 in order to allow pt to do typical daily functions w/o pain. LTG Duration 11/07/23 Assessment Summary Assessment Pt improved w/hipmobility B w/ manual treatment and had difficulty w/end ranges so worked on neuro re edu and given exercises to focus on this. He has dififculty w/hip flex L>R and woudl benefit from cont work on this. Physical Therapy Plan Frequency and Duration Frequency of Treatment 1x/Week Duration of treatment (weeks) 12 Plan of Care Start Date 08/15/23 Plan of Care End Date 11/07/23 Next Visit Focus/Plan Next Note Type Treatment Note Next Visit Plan review HEP: go over squat form , advance supine core exercises, resisted hip flex w /light band, planks and advanced planks as able manual: work on hip and innomintate flex, abd/add , ext; look at coccyx
--- NOTE | 2023-11-14 10:27 | PT.OPDS ---
Current Diagnoses Spondylosis without myelopathy or radiculopathy, lumbar region (08/21/23) Spinal stenosis, lumbar region without neurogenic claudication (08/21/23) Radiculopathy, lumbar region (08/21/23) Dorsalgia, unspecified (08/21/23) Abnormal posture (08/21/23) Visit Care Team Role Provider Type Cyrus Alfredo MD Family Provider Physician Primary Care Provider Specialty: [facility] Practice Address: [address] [place] [address], [id number] Email: [email or web address] Ascencio MD Attending Provider Physician Referring Provider Specialty: Anesthesiology Interventional Radiology Pain Management Address: [address] [place] [address], [id number] Email: [email or web address] Visit Number Visit Number 09/03 Discharge Summary PT-OP-B Current Condition Start: 08/08/23 10:44 Freq: Status: Active Protocol: Document 08/15/23 13:04 [facility] (Rec: 08/15/23 13:51 [facility] [id number]) Current Condition History of Current Condition Onset Date chronic Current Complaints L LBP w/pain radiating into groin History of Current Condition Pt reports his back hasn't gotten any better. He has been strengthening and lost over 70lbs and his back is still giving him a lot of trouble. Gets a pinch in L LB that shoots around ant hip an down leg. Recnet injection has helped and makes it easier to put shoes and socks on. 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 Pt's back pain has been chronic for years. He does a lot of stretching and foam rolling which helps him get by w/back pain. Pt greadually inc walking up to 8 miles a day. Wt lifting now: chest day, back day, leg day, arms and shoulders day then rest then repeat. Pt reports he is uncomfortable sometimes but is careful not to make himself worse. Pt reports leg machines that get about 90 deg flex, feels a pinch (leg press). He has uneven strength on R and L side. Pt tries to do dumbells vs wt machine like rows d/t weakness difference. occ gets tingling in toes and hands. he had bad n pain when first started losing weight that was really bad. He was signed up for a nerve study but it took a long time. it got so bad in September taht he had to call out of work some. Got n study and showed no signs of neurological disorder (did both leg) and changed diet ( took out caffiene, inc green veggies, avoided added sugar) and the pain had dec a lot. Pt reports L knee is a little tender. It has been janky for a while. WHen he was 23, he was wrestling with a chevy bigger than him when drinking and injured it; pt gets pinch in thoraic spine. more lower scap region. Has been like that since a couple yeras ago when CPR had been done on him Prior Treatments and Tests MRI lumbar: IMPRESSION: 1. Multilevel underlying facet arthropathy. 2. Borderline canal stenosis at L3-L4. 3. Multilevel foraminal narrowing as described above. Findings include moderate right foraminal narrowing and moderate to severe left foraminal narrowing at L5-S1. Treatment Goals Patient/Caregiver Goals strengthen the area as much as possible and get more exercises to be more focused to maintain mobility PT-OP-C Subjective Start: 08/08/23 10:44 Freq: Status: Active Protocol: Document 08/21/23 07:57 [facility] (Rec: 08/21/23 10:35 [facility] [id number]) OP-PT Subjective Patient Comments Patient Comments pt reports being tight this AM PT-OP-D Balance Start: 08/08/23 10:44 Freq: Status: Active Protocol: Document 08/15/23 13:04 [facility] (Rec: 08/15/23 13:51 [facility] [id number]) Balance Tests Single Limb Standing Single Limb- Right >30 sec (stiff in L hip holding it up) Single Limb- Left >30sec PT-OP-G Mobility & Gait Start: 08/08/23 10:44 Freq: Status: Active Protocol: Document 08/15/23 13:04 [facility] (Rec: 08/15/23 13:51 [facility] [id number]) OP Gait Assessment Comments Gait Comments dec L ant dep; dec RUE arm swing PT-OP-J Posture/Palpation/Skin Start: 08/08/23 10:44 Freq: Status: Active Protocol: Document 08/15/23 13:04 [facility] (Rec: 08/15/23 13:51 [facility] [id number]) Posture Evaluation [facility] Postural Classification System Maricel Postural Classifications Posterior/Posterior Vertebral Compression Test 2 Elbow Flexion Test 3 Lumbar Protective Mechanism Left AP 0 Lumbar Protective Mechanism Right AP 0 Lumbar Protective Mechanism Left PA 1 Lumbar Protective Mechanism Right PA 1 Comments Posture Comments L trunk rot, toe out R LE, R pelvic shear; L scap ant tipped; L iliac crest higher; equal greater trochanter PT-OP-K Range of Motion Start: 08/08/23 10:44 Freq: Status: Active Protocol: Document 08/15/23 13:04 [facility] (Rec: 08/15/23 13:51 [facility] [id number]) Lumbar Spine Range of Motion Lumbar Spine Active Percentage Flexion 90 Extension 40 Rotation Left 75 Rotation Right 75 Lateral Flexion Left 80 Lateral Flexion Right 90 Comments dec lower lumbar motion w/L SB ; pain w/ext; discomfort L PT-OP-L Special Tests Start: 08/08/23 10:44 Freq: Status: Active Protocol: Document 08/15/23 13:04 [facility] (Rec: 08/15/23 13:51 [facility] [id number]) Special Tests Lumbar Spine Special Tests Arcenio Test Results neg but pain in ant hip w/knee to chest Slump Test Results neg B PT-OP-M Strength Start: 08/08/23 10:44 Freq: Status: Active Protocol: Document 08/15/23 13:04 [facility] (Rec: 08/15/23 13:51 [facility] [id number]) Hip Strength Hip Manual Muscle Testing Right Flexion (L2) 4+ Good+ Extension (S1) 4- Good- Abduction 4- Good- Adduction 4 Good External Rotation 4 Good Internal Rotation 4+ Good+ Left Flexion (L2) 3+ Fair+ Extension (S1) 4- Good- Abduction 3+ Fair+ Adduction 3+ Fair+ External Rotation 3+ Fair+ Internal Rotation 3+ Fair+ Comments dec core control w/all Hip MMT Knee Strength Knee Manual Muscle Testing Right Flexion (S2) 5 Normal Extension (L3) 5 Normal Left Flexion (S2) 5 Normal Extension (L3) 4 Good Comments pain in knee ext; tightness w/ flex ant Ankle/Foot Strength Ankle and Foot Manual Muscle Testing Right Dorsiflexion (L4) 5 Normal Left Dorsiflexion (L4) 5 Normal PT-OP-T Assessment and Plan Start: 08/08/23 10:44 Freq: Status: Active Protocol: Document 11/14/23 10:26 [facility] (Rec: 11/14/23 10:27 [facility] [id number]) Physical Therapy Assessment Assessment Summary Assessment Pt called to cancel all remaining appts, said his insurance has terminated. Needs to reapply for insurance before able to make more appts. Pt only seen for IE and 1 follow up Physical Therapy Plan Discharge Physical Therapy Discharge Reasons No Longer Attending PT
== END 2023-11-19 13:55 | disposition home or self-care (01) ==
LOC: PHYS 07:30
PROVIDERS: Family Provider Family Medicine; PCP Family Medicine; Referring Provider Anesthesiology; Visit Provider Anesthesiology
DX: M48.061 Spinal stenosis, lumbar region without neurogenic claudication (principal); M54.16 Radiculopathy, lumbar region; M47.816 Spondylosis without myelopathy or radiculopathy, lumbar region; M54.9 Dorsalgia, unspecified; R29.3 Abnormal posture
CPT/HCPCS: 97110; 97112; 97140; 97162; 97535

== ENCOUNTER → 2024-01-31 11:29 | Outpatient (CLI) | payer OTHER, SELFPAY ==
[2024-01-31 12:31] LABS: Creatinine Urine Random 194.55 mg/dL
[2024-01-31 12:55] LABS: Add Manual Diff / Slide Review NO; Basophils Absolute Auto 0 /uL (0-100); Basophils Percent Auto 0.2 % (0-2); Eosinophils Absolute Auto 800 /uL (0-450); Eosinophils Percent Auto 7.4 % (2-4); Hematocrit 42.8 % (41-53); Hemoglobin 14.6 g/dL (13.5-17.5); Lymphocytes Absolute Auto 1500 /uL (1100-4500); Lymphocytes Percent Auto 13.1 % (25-40); Mean Corpuscular HGB Conc 34.1 % (30-36); Mean Corpuscular Hemoglobin 29.9 PG (26-34); Mean Corpuscular Volume 87.9 fL (80-100); Monocytes Absolute Auto 600 /uL (0-900); Monocytes Percent Auto 5.2 % (3-14); Neutrophils Absolute Auto 8300 /uL (1500-7000); Neutrophils Percent Auto 74.1 % (50-75); Platelet Count 220 X10^3/uL (150-400); Red Blood Cell Count 4.86 X10^6/uL (4.5-5.9); Red Cell Distribution Width 13.4 % (11.6-14.8); White Blood Cell Count 11.2 X10^3/uL (4.5-11.0)
[2024-01-31 13:13] LABS: Alanine Aminotransferase 39 IU/L (<50); Albumin 4.3 g/dL (3.5-5.0); Alkaline Phosphatase 59 U/L (38-126); Aspartate Aminotransferase 42 IU/L (17-59); BUN Creatinine Ratio 16.1 (6-22); Bilirubin Total 0.9 mg/dL (0.2-1.3); Blood Urea Nitrogen 19 mg/dL (9-20); Carbon Dioxide 27 mmol/L (22-32); Chloride 103 mmol/L (98-107); Estimated Glomerular Filt Rate > 60 mL/min (>60); Globulin 2.2 g/dL (1.7-4.1); Glucose 92 mg/dL (70-100); HEMOLYSIS < 15 (0-50); Potassium 4.6 mmol/L (3.4-5.1); Sodium 137 mmol/L (137-145); Total Protein 6.5 g/dL (6.3-8.2)
[2024-01-31 13:46] LABS: TSH w/ Reflex to FT4 0.91 uIU/mL (0.47-4.68)
== END ==
LOC: LAB 11:31
PROVIDERS: Family Provider Family Medicine; PCP Family Medicine; Referring Provider Family Medicine; Visit Provider Family Medicine
DX: E78.5 Hyperlipidemia, unspecified (principal); F41.9 Anxiety disorder, unspecified; F32.9 Major depressive disorder, single episode, unspecified; F90.9 Attention-deficit hyperactivity disorder, unspecified type
CPT/HCPCS: 36415; 80053; 82043; 82570; 84443; 85025

== ENCOUNTER → 2024-02-01 14:20 | Outpatient (CLI) | payer OTHER, SELFPAY ==
--- NOTE | 2024-02-01 14:21 | DI.US.S_ITS ---
PROCEDURE: US ABDOMEN LIMITED INDICATIONS: Upper abdominal pain, unspecified TECHNIQUE: Real-time focused scanning was performed of the abdomen, with image documentation. COMPARISON: [facility], CT, CT ABDOMEN PELVIS W CON, 07/03/2018, 8:10. FINDINGS: The liver is normal in size and demonstrates no suspicious lesions. No findings of gallstones or sludge are seen. The gallbladder wall is not thickened, measuring 3 mm or less. No specific pericholecystic fluid is seen. The sonographic Gonzales sign is negative. There is no biliary dilatation, the common bile duct measures 4-5 mm. No significant pancreatic abnormality is seen on these images. IMPRESSION: The gallbladder demonstrates a normal sonographic appearance. No biliary dilatation is seen. Dictated by: Sánchez Hewitt M.D. on 02/01/2024 at 14:34 Approved by: Sánchez Hewitt M.D. on 02/01/2024 at 14:36
== END ==
LOC: US 14:20
PROVIDERS: Family Provider Family Medicine; PCP Family Medicine; Referring Provider Physician Assistant; Visit Provider Physician Assistant
DX: R10.10 Upper abdominal pain, unspecified (principal)
CPT/HCPCS: 76705

== ENCOUNTER → 2024-02-06 12:05 | Outpatient (CLI) | payer OTHER, SELFPAY ==
--- NOTE | 2024-02-06 12:07 | DI.RAD.S_ITS ---
PROCEDURE: XR WRIST LT MIN 3V INDICATIONS: Left Wrist Pain TECHNIQUE: 4 views of the wrist were acquired. COMPARISON: None. FINDINGS: Bones: No fractures or dislocations. No suspicious bony lesions. Soft tissues: No suspicious soft tissue calcifications. IMPRESSION: No acute osseous abnormality. If pain persists with conservative management, consider repeat x-ray in 10-14 days or cross-sectional imaging. Dictated by: Harpreet Knox M.D. on 02/06/2024 at 18:39 Approved by: Harpreet Knox M.D. on 02/06/2024 at 18:39
[2024-02-06 13:07] LABS: Cholesterol 166 mg/dL (140-199); HDL Cholesterol 57 mg/dL (40-60); LDL Cholesterol Calculated 96 mg/dL (<100); Lipase 77 U/L (23-300); Triglycerides 64 mg/dL (35-150)
[2024-02-07 07:37] LABS: Apolipoprotein B 91 mg/dL (<90)
[2024-02-07 12:10] LABS: Interpretation Negative (Negative)
[2024-02-11 07:39] LABS: Percent Free Testosterone 2.15 % (1.50-4.20); Testosterone Free 15.96 ng/dL (5.00-21.00); Testosterone Total 742.5 ng/dL (264.0-916.0)
== END ==
PROVIDERS: Family Provider Family Medicine; PCP Family Medicine; Referring Provider Family Medicine; Visit Provider Family Medicine
DX: M25.532 Pain in left wrist (principal); R10.10 Upper abdominal pain, unspecified; R11.0 Nausea; K29.70 Gastritis, unspecified, without bleeding; R68.82 Decreased libido
CPT/HCPCS: 36415; 73110; 80061; 82172; 83013; 83690; 84402; 84403

== ENCOUNTER 2024-02-28 14:09 | Day surgery (SDC) | payer BC, SELFPAY ==
--- NOTE | 2024-02-28 | PATH_ITS ---
[facility] Accession Number: [id number] No. of containers..02 Tissue . 01 Material submitted: . PART A: duodenum bulb - DUODENAL BULB PART B: stomach - ANTRUM . 01 Diagnosis: A. DUODENAL BULB, BIOPSY: Duodenal mucosa with no significant diagnostic abnormality. Negative for active inflammation, features of sprue, dysplasia, or malignancy. - B. GASTRIC ANTRUM, BIOPSY: Focal mild chronic inactive gastritis, gastric antral mucosa. Negative for helicobacter organisms on H/E and immunostain sections, see comment. Negative for intestinal metaplasia, dysplasia, or malignancy. [facility] 03/04/2024 1259 Local . 01 Comment: Part B: An immunohistochemical stain was performed to evaluate for Helicobacter organisms and is NEGATIVE. The control stain was adequately reactive. Technical Note: The immunohistochemical stains reported were performed at [facility] ([address] [place] [address] [address], [facility] [address]). They were developed and their performance characteristics determined by [employer]. They have not been cleared or approved by the U.S. Food and Drug Administration, although such approval is not required for analyte-specific reagents of this type. . 01 Electronically signed: . Monika Lipscomb MD, Pathologist NPI- [id number] . 01 Gross description: . A. Received in formalin with two patient identifiers and duodenum bulb, are two gonzalez soft tissue fragments both measuring 0.3 cm in greatest dimension. Submitted in cassette A1. B. Received in formalin with two patient identifiers and antrum, are three gonzalez soft tissue fragments 0.3 to 0.4 cm in greatest dimension. Submitted in cassette B1. ([id number]) /BRIAN 02/29/2024 1001 Local . 01 Pathologist provided ICD-10: R10.13 . 01 CPT . 385870, [id number], [id number] Specimen Comment: A courtesy copy of this report has been sent to [phone] Performed at: [address] [id number] MD Anders Boyer MD Phone: [phone]
--- NOTE | 2024-02-28 14:29 | PM.PREOP ---
Pre-operative Note COVID-19 COVID-19 status: Not tested Interval Note History & Physical reviewed/Exam performed by Physician: Yes Changes to H&P: No ASA Class (for procedural sedation): II
[2024-02-28] MEDS: LACTATED RINGERS 1,000 ML 42 ML IV (14:31)
[2024-02-28 14:33] VITALS: BP 108/66; PULSE 47; RESP 16; TEMP 36.4; O2SAT 98
--- NOTE | 2024-02-28 14:43 | SUR.OPER ---
egd scope number 282
--- NOTE | 2024-02-28 14:55 | PM.OP.EGD ---
Operative Date/Time/Diagnoses Date of procedure: 02/28/24 Time of procedure: 14:55 Pre-op diagnosis: Epigastric pain Post-op diagnosis: same Procedure & Clinicians Study performed: Esophagogastroduodenoscopy Same procedure as scheduled: Yes Surgeon: German Crain Procedure Notes Procedure in detail: Surgeon: German Crain MD Anesthesia: Elizabeth Watkins MD A timeout was performed. A bite blocked was placed. The patient was positioned in the left lateral decubitus position. Anesthesia was administered. The endoscope was inserted through the bite block and passed through the esophagus and stomach and into the duodenum. The duodenal mucosa appeared normal. The scope was withdrawn into the duodenal bulb and mild duodenitis was noted. Biopsies were taken with cold forceps. The scope was withdrawn into the stomach. Mild antritis was noted and random biopsies were taken with the cold forceps. The rest of the stomach was normal. The scope was retroflexed and no hiatal hernia was noted. The scope was withdrawn into the esophagus and no abnormalities were noted. The remainder of the esophagus was normal. The scope was withdrawn. The patient was awakened and brought to recovery. Sedation time: 7 minutes Findings: Mild duodenitis and antritis Post-procedure Disposition: PACU
[2024-02-28 15:00] VITALS: BP 94/56; PULSE 56; RESP 16; TEMP 36.2; O2SAT 94
[2024-02-28 15:05] VITALS: BP 108/68; PULSE 73; RESP 14; O2SAT 96
[2024-02-28 15:10] VITALS: BP 108/68; PULSE 59; RESP 12; O2SAT 95
[2024-02-28 15:12] VITALS: BP 103/68; PULSE 63; RESP 13; TEMP 36.1; O2SAT 97
== END 2024-02-28 15:29 | disposition home or self-care (01) ==
PROVIDERS: Family Provider Family Medicine; PCP Family Medicine; Referring Provider Surgery; Visit Provider Surgery
PROC: 0DJ08ZZ Inspection of Upper Intestinal Tract, Via Natural or Artificial Opening Endoscopic (ICD-10-PCS; CPT 43239; principal; 2024-02-28 15:00)
DX: R10.13 Epigastric pain (principal); K29.80 Duodenitis without bleeding; K29.50 Unspecified chronic gastritis without bleeding; K29.70 Gastritis, unspecified, without bleeding
CPT/HCPCS: 43239; J2704

== ENCOUNTER → 2024-06-14 07:42 | Outpatient (CLI) | payer BC, SELFPAY ==
[2024-06-14 10:06] LABS: Urine N gonorrhoeae NOT DETECTED
[2024-06-14 12:37] LABS: Urine Chlamydia NOT DETECTED
== END ==
PROVIDERS: Family Provider Family Medicine; PCP Family Medicine; Visit Provider Nurse Practitioner Family
DX: R30.0 Dysuria (principal); A64 Unspecified sexually transmitted disease; Z11.3 Encounter for screening for infections with a predominantly sexual mode of transmission
CPT/HCPCS: 87086; 87210; 87491; 87591

== ENCOUNTER → 2024-06-14 08:12 | Outpatient (CLI) | payer BC, SELFPAY ==
[2024-06-16 14:39] LABS: Hepatitis B Surface Antigen NEGATIVE s/c (NEGATIVE)
[2024-06-16 15:05] LABS: HIV 1 & 2 Ab/Ag 4th Gen Combo NEGATIVE (NEGATIVE); Hep C Virus Ab w/Reflex Quant NEGATIVE s/c (NEGATIVE)
== END ==
PROVIDERS: Family Provider Family Medicine; PCP Family Medicine; Referring Provider Nurse Practitioner Family; Visit Provider Nurse Practitioner Family
DX: Z11.3 Encounter for screening for infections with a predominantly sexual mode of transmission (principal); R30.0 Dysuria; A64 Unspecified sexually transmitted disease
CPT/HCPCS: 36415; 86592; 86695; 86696; 86803; 87086; 87210; 87340; 87389; 87491; 87591

== ENCOUNTER 2024-09-18 14:28 | Outpatient (CLI) | payer BC, SELFPAY ==
[2024-09-18] VITALS (9 sets, daily range): BP systolic 105–128; BP diastolic 55–61; PULSE 42–58; RESP 11–19; TEMP 36.7; O2SAT 98–100
--- NOTE | 2024-09-18 14:30 | DI.RAD.S_ITS ---
PROCEDURE: PAIN L/S TRANSFORAMINAL INJECT INDICATIONS: Left L3/4 and L4/5 TFESI COMPARISON: [facility], , PAIN L/S TRANSFORAMINAL INJECT, 07/25/2023, 12:12. FINDINGS/IMPRESSION: Fluoroscopic spot filming was performed to verify placement of spinal needles at the L3-4 and L4-5 level(s), as labeled on the films. Appropriate location(s) of the needle tip(s) was confirmed by injection of iodinated contrast. Dictated by: Clement Del Toro M.D. on 09/18/2024 at 18:27 Approved by: Clement Del Toro M.D. on 09/18/2024 at 18:28
[2024-09-18] MEDS: MIDAZOLAM 2 MG/2 ML VIAL IV (15:48)
[2024-09-18] MEDS: DEXAMETHASONE 10 MG/ML VIAL 20 MG INJ (15:52)
[2024-09-18] MEDS: LIDOCAINE 1% 20 ML 5 ML INJ (15:53)
[2024-09-18] MEDS: iopamidoL 15 ML VIAL 3 ML INJ (15:53)
[2024-09-18] MEDS: BUPIVACAINE 0.25% (PF) VIAL 2 ML INJ (15:53)
[2024-09-18] MEDS: BETAMETHASONE 30 MG/5 ML MDV 12 MG INJ (15:54)
--- NOTE | 2024-09-18 16:47 | P.PCN_ITS ---
Date/Time/Diagnoses Date of procedure: 09/18/24 Time of procedure: 16:47 Pre-procedure diagnosis: 1. FORAMINAL STENOSIS WITH LE SYMPTOMS Post-procedure diagnosis: same Procedure Notes Procedure: 1. FLUOROSCOPICALLY GUIDED CONTRAST CONTROLLED TRANSFORAMINAL EPIDURAL STEROID INJECTION - LEFT L4/5 Indications: Abdirizak is referred by Dr. Alfredo for treatment of Foraminal Stenosis with Left LE Symptoms Physician: Jama Blair Total Fluoroscopy time (seconds): 11 Total sedation minutes: 14 Complications: none Procedure in detail & Post-procedure care: FINDINGS Foraminal Nerve Root Compression secondary to disc disease and facet hypertrophy DESCRIPTION OF PROCEDURE Following review of allergy and review of potential side effects and complications, including, but not necessarily limited to, infection, allergic reaction, local tissue breakdown, stroke, temporary or permanent nerve injury, paralysis, and possible , the patient indicated that the patient understood and agreed to proceed. An informed consent document was signed by the patient, witnessed by a nurse, and placed in the patient's chart. Additionally, other treatment options including medications, modalities, and physical therapy were reviewed with the patient. After review of previous anaesthesic history and IV conscious sedation the patient was deemed safe to proceed with today?s procedure with IV conscious sedation as ASA class II designation. Safety time-out was performed to confirm patient ID, procedure to be performed and site of procedure. IV sedation was accomplished with a combination of 2mg of Versed administered by the RN after DO order, titrated to patient comfort during the course of the procedure while the patient remained responsive to all verbal commands In the prone position following sterile prep and drape of the lumbar region, the left L4/5 posterior neuroforamen was identified fluoroscopically. The skin was anesthetized via a 25-gauge 1.5-inch needle with 1% lidocaine solution. At this point, a 25-gauge 3.5-inch spinal needle was atraumatically introduced and advanced under fluoroscopic guidance through the posterior left L4/5 neuroforamen to approximately the anterior aspect of the canal. Depth was confirmed on lateral view. Following negative aspiration, injection of approximately 1.5 cc of Isovue 200 under live fluoroscopy in the AP view confirmed excellent flow along the nerve root, into the epidural space without vascular or intrathecal uptake observed Radiological data, including multiple fluoroscopic views of the lumbosacral spine, reveal a spinal needle at the left L4/5 posterior neuroforamen. Subsequent views show flow of contrast material flowing superiorly and inferiorly along the nerve root confirming epidural flow. Subsequently, a test dose of 1.5 cc of 1% lidocaine solution was administered and patient was observed for two minutes for signs or symptoms of complications, including abdominal pain, shortness of breath, bilateral upper or lower extremity weakness, nausea and vomiting, prior to steroid injection. At this point, a total of 2cc or 10mg of dexamethasone and 6mg of betamethasone was injected without incident. The procedure tolerated the procedure well without signs or symptoms of complications prior to transfer to the recovery area continued monitoring without incident. The patient was then transferred to the recovery area where they were observed for an appropriate time after the injection. The patient reported a VAS score of 7 prior to the procedure and a post- procedure VAS of 0. POST OP INSTRUCTIONS The patient was provided a Pain Log to continue to record their response to the target-specific procedure prior to follow-up visit with their referring physician. Additionally, specific post-injection care instructions and a contact number to our office were provided if concerns arise regarding possible complications associated with the procedure are suspected.
--- NOTE | 2024-09-18 16:49 | PM.PROC.IR.1 ---
Date/Time/Diagnoses Date of procedure: 09/18/24 Time of procedure: 16:49 Pre-procedure diagnosis: 1. FORAMINAL STENOSIS WITH LE SYMPTOMS Post-procedure diagnosis: same Procedure Notes Procedure: 1. FLUOROSCOPICALLY GUIDED CONTRAST CONTROLLED TRANSFORAMINAL EPIDURAL STEROID INJECTION - LEFT L3/4 TFESI Indications: Abdirizak is referred by Dr. Alfredo for treatment of Foraminal Stenosis with left LE Symptoms Physician: Jama Blair Total Fluoroscopy time (seconds): 11 Total sedation minutes: 14 Complications: none Procedure in detail & Post-procedure care: FINDINGS Foraminal Nerve Root Compression secondary to disc disease and facet hypertrophy DESCRIPTION OF PROCEDURE Following review of allergy and review of potential side effects and complications, including, but not necessarily limited to, infection, allergic reaction, local tissue breakdown, stroke, temporary or permanent nerve injury, paralysis, and possible , the patient indicated that the patient understood and agreed to proceed. An informed consent document was signed by the patient, witnessed by a nurse, and placed in the patient's chart. Additionally, other treatment options including medications, modalities, and physical therapy were reviewed with the patient. After review of previous anaesthesic history and IV conscious sedation the patient was deemed safe to proceed with today?s procedure with IV conscious sedation as ASA class II designation. Safety time-out was performed to confirm patient ID, procedure to be performed and site of procedure. IV sedation was accomplished with a combination of 2mg of Versed was administered by the RN after DO order, titrated to patient comfort during the course of the procedure while the patient remained responsive to all verbal commands In the prone position following sterile prep and drape of the lumbar region, the left L3/4 posterior neuroforamen was identified fluoroscopically. The skin was anesthetized via a 25-gauge 1.5-inch needle with 1% lidocaine solution. At this point, a 25-gauge 3.5-inch spinal needle was atraumatically introduced and advanced under fluoroscopic guidance through the posterior left L3/4 neuroforamen to approximately the anterior aspect of the canal. Depth was confirmed on lateral view. Following negative aspiration, injection of approximately 1.5 cc of Isovue 200 under live fluoroscopy in the AP view confirmed excellent flow along the nerve root, into the epidural space without vascular or intrathecal uptake observed Radiological data, including multiple fluoroscopic views of the lumbosacral spine, reveal a spinal needle at the left L3/4 posterior neuroforamen. Subsequent views show flow of contrast material flowing superiorly and inferiorly along the nerve root confirming epidural flow. Subsequently, a test dose of 1.5cc of 1% lidocaine solution was administered and patient was observed for two minutes for signs or symptoms of complications, including abdominal pain, shortness of breath, bilateral upper or lower extremity weakness, nausea and vomiting, prior to steroid injection. At this point, a total of 2cc or 10mg of dexamethasone and 6mg betamethasone was injected without incident. The patient tolerated the procedure well without signs or symptoms of complications prior to transfer to the recovery area continued monitoring without incident. The patient was then transferred to the recovery area where they were observed for an appropriate time after the injection. The patient reported a VAS score of 7 prior to the procedure and a post-procedure VAS of 0. POST OP INSTRUCTIONS The patient was provided a Pain Log to continue to record their response to the target-specific procedure prior to follow-up visit with their referring physician. Additionally, specific post-injection care instructions and a contact number to our office were provided if concerns arise regarding possible complications associated with the procedure are suspected.
== END 2024-09-18 16:24 | disposition home or self-care (01) ==
LOC: RAD 14:29
PROVIDERS: Family Provider Family Medicine; PCP Family Medicine; Referring Provider Physical Medicine & Rehabilitation; Visit Provider Physical Medicine & Rehabilitation
DX: M48.061 Spinal stenosis, lumbar region without neurogenic claudication (principal); M51.16 Intervertebral disc disorders with radiculopathy, lumbar region; M47.26 Other spondylosis with radiculopathy, lumbar region
CPT/HCPCS: 64483; 64484; 99152; J0702; J1100; J2250; J3490

== ENCOUNTER → 2024-12-03 14:29 | Outpatient (CLI) | payer BC, SELFPAY ==
[2024-12-03 15:01] LABS: Add Manual Diff / Slide Review NO; Basophils Absolute Auto 0 /uL (0-100); Basophils Percent Auto 0.5 % (0-2); Eosinophils Absolute Auto 100 /uL (0-450); Eosinophils Percent Auto 0.8 % (2-4); Hemoglobin 15.3 g/dL (13.5-17.5); Lymphocytes Absolute Auto 1800 /uL (1100-4500); Lymphocytes Percent Auto 23.8 % (25-40); Mean Corpuscular HGB Conc 34.7 % (30-36); Mean Corpuscular Hemoglobin 30.4 PG (26-34); Mean Corpuscular Volume 87.6 fL (80-100); Monocytes Absolute Auto 600 /uL (0-900); Monocytes Percent Auto 7.7 % (3-14); Neutrophils Absolute Auto 5200 /uL (1500-7000); Neutrophils Percent Auto 67.2 % (50-75); Platelet Count 202 X10^3/uL (150-400); Red Blood Cell Count 5.02 X10^6/uL (4.5-5.9); Red Cell Distribution Width 13.4 % (11.6-14.8); White Blood Cell Count 7.7 X10^3/uL (4.5-11.0)
[2024-12-03 15:12] LABS: Alanine Aminotransferase 44 IU/L (<50); Albumin 4.9 g/dL (3.5-5.0); Albumin Globulin Ratio 2.5 (1.0-2.8); Alkaline Phosphatase 49 U/L (38-126); Aspartate Aminotransferase 46 IU/L (17-59); BUN Creatinine Ratio 14.4 (6-22); Blood Urea Nitrogen 18 mg/dL (9-20); Calcium 9.9 mg/dL (8.4-10.2); Carbon Dioxide 26 mmol/L (22-32); Chloride 105 mmol/L (98-107); Estimated Glomerular Filt Rate > 60 mL/min (>60); Glucose 94 mg/dL (70-99); HEMOLYSIS < 15 (0-50); Potassium 4.6 mmol/L (3.4-5.1); Sodium 141 mmol/L (137-145); Total Protein 6.9 g/dL (6.3-8.2)
[2024-12-03 16:01] LABS: Vitamin B12 Reflex MMA if <400 780 pg/mL (239-931)
== END ==
LOC: LAB 14:31
PROVIDERS: Family Provider Family Medicine; PCP Family Medicine; Referring Provider Physician Assistant; Visit Provider Physician Assistant
DX: M79.2 Neuralgia and neuritis, unspecified (principal)
CPT/HCPCS: 36415; 80053; 82607; 85025

== ENCOUNTER → 2024-12-06 13:18 | Outpatient (CLI) | payer BC, SELFPAY ==
--- NOTE | 2024-12-06 13:19 | DI.MRI.S_ITS ---
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 In cases with scoliosis, additional coronal T2 fast spin echo may be performed. COMPARISON: [facility], MR, MR LUMBAR SPINE WO CON, 05/30/2023, 7:52. [facility], CR, XR LUMBAR SPINE 2-3V, 05/17/2023, 8:47. FINDINGS: Image quality: Limited by lack of IV contrast. This examination is limited by involuntary motion artifact. Alignment and Curvature: There is addendum will retrolisthesis seen at L3-L4. Bone Marrow: Marrow is of normal overall signal. No acute vertebral body compression fractures. Spinal Cord: Conus medullaris terminates at the L1 level. Visualized cord demonstrates normal signal and size. Paraspinous Soft Tissues: No paravertebral masses. T12-L1: Normal appearance. L1-L2: Normal appearance. L2-L3: The disc height and disk signal are well-preserved. Mild to moderate disc bulge is seen. There is a superimposed central disc protrusion. Mild facet joint hypertrophy is seen. Moderate bilateral neural foraminal narrowing is seen. Mild central canal narrowing is seen. When comparison is made with the prior images, these findings are similar. L3-L4: Iodl-[id number] loss of disc height and disc signal can be seen. Moderate generalized disc bulge is seen. There is a superimposed central disc protrusion. Moderate facet joint hypertrophy is seen. There is moderate right-sided and at least moderate left-sided neural foraminal narrowing. Moderate central canal narrowing is seen. When comparison is made with the prior images, these findings are similar. L4-L5: The disc height is well-preserved. Loss of disc signal is seen at this level. Mild generalized disc bulge is seen. Mild to moderate facet hypertrophy is seen. There is at least moderate bilateral neural foraminal narrowing, left worse than right. No significant central canal narrowing is seen. When comparison is made with the prior images, these findings are similar. L5-S1: The disc height is well-preserved. Loss of disc signal is seen at this level. Mild generalized disc bulge is seen. There is a superimposed central disc protrusion. There is a focal annular fissure seen posteriorly. Moderate facet joint hypertrophy is seen. There is at least moderate bilateral neural foraminal narrowing. There is a degree of compression seen upon the exiting nerve roots. No significant central canal narrowing is seen. When comparison is made with the prior images, these findings are similar. IMPRESSION: To the limits of this study without IV contrast, no findings of infection can be seen. Multiple levels of lumbar spine degenerative change can be seen, which are worst inferiorly and are similar to 202. Dictated by: Sánchez Hewitt M.D. on 12/06/2024 at 13:34 Approved by: Sánchez Hewitt M.D. on 12/06/2024 at 13:39
== END ==
LOC: MRI 13:18
PROVIDERS: Family Provider Family Medicine; PCP Family Medicine; Referring Provider Physician Assistant; Visit Provider Physician Assistant
DX: M48.07 Spinal stenosis, lumbosacral region (principal); M48.061 Spinal stenosis, lumbar region without neurogenic claudication; M47.816 Spondylosis without myelopathy or radiculopathy, lumbar region; M47.27 Other spondylosis with radiculopathy, lumbosacral region; M79.2 Neuralgia and neuritis, unspecified
CPT/HCPCS: 72148

== ENCOUNTER → 2024-12-16 13:38 | Outpatient (CLI) | payer BC, SELFPAY | PROVIDERS: Family Provider Family Medicine; PCP Family Medicine; Visit Provider Registered Nurse Diabetes Educator | DX: R31.9 Hematuria, unspecified (principal) | CPT/HCPCS: 87086 ==

== ENCOUNTER 2025-01-08 07:32 | Outpatient (CLI) | payer BC, SELFPAY ==
[2025-01-08] VITALS (9 sets, daily range): BP systolic 107–132; BP diastolic 58–71; PULSE 50–76; RESP 14–16; TEMP 36.6; O2SAT 97–99
[2025-01-08] MEDS: MIDAZOLAM 2 MG/2 ML VIAL IV ×2 (08:33→08:38)
[2025-01-08] MEDS: BUPIVACAINE 0.5% (PF) 10 ML VIAL 2 ML INJ (08:41)
[2025-01-08] MEDS: LIDOCAINE 1% 20 ML 5 ML INJ (08:41)
[2025-01-08] MEDS: iopamidoL 15 ML VIAL 3 ML INJ (08:41)
--- NOTE | 2025-01-08 08:57 | PM.PROC.IR.1 ---
Date/Time/Diagnoses Date of procedure: 01/08/25 Time of procedure: 08:58 Pre-procedure diagnosis: 1. FACET ARTHROPATHY Post-procedure diagnosis: same Procedure Notes Procedure: 1. BILATERAL- L4, L5 and S1 DIAGNOSTIC MB BLOCKS with LA Anesthetic Indications: Abdirizak is referred by Dr. Alfredo for treatment of Bilateral Axial LBP. Physician: Jama Blair Total Fluoroscopy time (seconds): 6 Total sedation minutes: 20 Complications: none Procedure in detail & Post-procedure care: DESCRIPTION OF PROCEDURE Fluoroscopically guided, contrast-controlled bilateral L4, L5 and S1 medial branch blocks with 0.5cc of 0.5% Marcaine. Following review of allergy and review of potential side effects and complications, including, but not necessarily limited to, infection, allergic reaction, local tissue breakdown, nerve injury, paralysis, stroke and possible , the patient indicated that the patient understood and agreed to proceed. An informed consent document was signed by the patient, witnessed by a nurse, and placed in the patient's chart. After review of previous anaesthesic history and IV conscious sedation the patient was deemed safe to proceed with today's procedure with IV conscious sedation as ASA class II designation. Safety time-out was performed to confirm patient ID, procedure to be performed and site of procedure. IV sedation was accomplished with a combination of 4mg of Versed was administered by the RN after DO order, titrated to patient comfort during the course of the procedure while the patient remained responsive to all verbal commands In the prone position, following sterile prep and drape of the lumbar region, the right L4, L5 and S1 anatomical location of the medial branch of the dorsal ramus was identified fluoroscopically. Subsequently an anesthetic skin wheal using 1% lidocaine solution was initiated at each of the anatomical spots. Subsequently then a 22-gauge 3.5-inch spinal needle was atraumatically introduced and advanced under fluoroscopic guidance at each of the corresponding sites at the right L4, L5 and S1 MB. After negative aspiration, 0.2cc of Isovue 200 was injected, confirming placement without vascular or intrathecal uptake. Subsequently then 0.5cc of 0.5% Marcaine solution was injected at each of the corresponding sites at the right L4, L5 and S1 medial branch locations. The identical procedure was replicated on the left. The patient tolerated the procedure well without signs or symptoms of complications prior to transfer to the recovery area continued monitoring without incident. Post-procedure, the patient was monitored initiating provocative activities to measure the amount of relief from block of the facetogenic pain. The patient reported a VAS of 7 prior to the procedure and a post-procedure VAS of 1. It has been a pleasure to assist in the diagnostic and therapeutic care of your patient. POST OP INSTRUCTIONS The patient was provided with a Pain Log to complete over the next several hours and subsequent days prior to the patient's follow up with the ordering physician. If the patient has transplant case manager relief to the solution applied, then they may be a candidate for medial branch rhizotomy. The patient is aware, was provided, once again, with a Pain Log and will follow up with the referring physician for review and clinical correlation
== END 2025-01-08 09:10 | disposition home or self-care (01) ==
LOC: RAD 07:33
PROVIDERS: PCP Family Medicine; Referring Provider Physical Medicine & Rehabilitation; Visit Provider Physical Medicine & Rehabilitation
DX: M47.816 Spondylosis without myelopathy or radiculopathy, lumbar region (principal); M47.817 Spondylosis without myelopathy or radiculopathy, lumbosacral region
CPT/HCPCS: 64493; 64494; 99152; J2250

== ENCOUNTER 2025-05-26 10:11 | Outpatient (CLI) | payer BC, SELFPAY ==
[2025-05-26] VITALS (9 sets, daily range): BP systolic 100–135; BP diastolic 55–74; PULSE 43–67; RESP 13–17; TEMP 36.4; O2SAT 96–100
[2025-05-26] MEDS: MIDAZOLAM 2 MG/2 ML VIAL IV (11:56)
[2025-05-26] MEDS: LIDOCAINE 2% INJ MDV 20ML 5 ML INJ (11:59)
[2025-05-26] MEDS: LIDOCAINE 1% 20 ML 5 ML INJ (11:59)
--- NOTE | 2025-05-26 12:16 | PM.PROC.IR.1 ---
Date/Time/Diagnoses Date of procedure: 05/26/25 Time of procedure: 12:16 Pre-procedure diagnosis: 1. FACET ARTHROPATHY Post-procedure diagnosis: same Procedure Notes Procedure: 1. BILATERAL- L4, L5 and S1 DIAGNOSTIC MB BLOCKS with SA Anesthetic Indications: The patient is referred by for treatment of Bilateral Axial LBP. Physician: Jama Blair Total Fluoroscopy time (seconds): 9 Total sedation minutes: 12 Complications: none Procedure in detail & Post-procedure care: DESCRIPTION OF PROCEDURE Fluoroscopically guided, contrast-controlled bilateral L4, L5 and S1 medial branch blocks with 0.5cc of 2% Lidocaine. Following review of allergy and review of potential side effects and complications, including, but not necessarily limited to, infection, allergic reaction, local tissue breakdown, nerve injury, paralysis, stroke and possible , the patient indicated that the patient understood and agreed to proceed. An informed consent document was signed by the patient, witnessed by a nurse, and placed in the patient's chart. After review of previous anaesthesic history and IV conscious sedation the patient was deemed safe to proceed with today's procedure with IV conscious sedation as ASA class II designation. Safety time-out was performed to confirm patient ID, procedure to be performed and site of procedure. IV sedation was accomplished with a combination of 2mg of Versed was administered by the RN after DO order, titrated to patient comfort during the course of the procedure while the patient remained responsive to all verbal commands In the prone position, following sterile prep and drape of the lumbar region, the right L4, L5 and S1 anatomical location of the medial branch of the dorsal ramus was identified fluoroscopically. Subsequently an anesthetic skin wheal using 1% lidocaine solution was initiated at each of the anatomical spots. Subsequently then a 22-gauge 3.5-inch spinal needle was atraumatically introduced and advanced under fluoroscopic guidance at each of the corresponding sites at the right L4, L5 and S1 MB. After negative aspiration, 0.2cc of Isovue 200 was injected, confirming placement without vascular or intrathecal uptake. Subsequently then 0.5cc of 2% Lidocaine solution was injected at each of the corresponding sites at the right L4, L5 and S1 medial branch locations. The identical procedure was replicated on the left. The patient tolerated the procedure well without signs or symptoms of complications prior to transfer to the recovery area continued monitoring without incident. Post-procedure, the patient was monitored initiating provocative activities to measure the amount of relief from block of the facetogenic pain. The patient reported a VAS of 7 prior to the procedure and a post-procedure VAS of 1. It has been a pleasure to assist in the diagnostic and therapeutic care of your patient. POST OP INSTRUCTIONS The patient was provided with a Pain Log to complete over the next several hours and subsequent days prior to the patient's follow up with the ordering physician. If the patient has database administration manager relief to the solution applied, then they may be a candidate for medial branch rhizotomy. The patient is aware, was provided, once again, with a Pain Log and will follow up with the referring physician for review and clinical correlation
== END 2025-05-26 12:34 | disposition home or self-care (01) ==
PROVIDERS: PCP Family Medicine; Referring Provider Physical Medicine & Rehabilitation; Visit Provider Physical Medicine & Rehabilitation
DX: M47.816 Spondylosis without myelopathy or radiculopathy, lumbar region (principal); M47.817 Spondylosis without myelopathy or radiculopathy, lumbosacral region
CPT/HCPCS: 64493; 64494; 99152; J2250